=== PATIENT | female | born 1935 | race Caucasian/White ===

== ENCOUNTER 2022-09-24 00:52 | Day surgery (SDC) | payer OTHER, SELFPAY ==
[2022-09-06 14:09] VITALS: BMI 23.8
--- NOTE | 2022-09-06 14:43 | PC.NURSE ---
Report to the Outpatient Waiting Room, entrance under the green pavilion located off [facility], at time __10:45AM on date __09/13/22 . Planned Procedure Time: ___12:45PM . Time changes happen often and if your time is changed the preop area will call you the afternoon before. - You and your visitor will be asked to self-screen and do not enter if you have any COVID symptoms. - Only one visitor is requested with a max of two and NO children visitors are allowed at this time. - The patient visitor may be requested to leave or wait in car when not with patient due to distancing restrictions. - A mask is optional within the hospital. Patients may have clear liquids (water, carbonated beverages, clear teas, apple juice) until 3 hours prior to surgery with a maximum of 20 ounces. - No food from midnight until time of surgery Take the following medications with a SIP of water the morning of surgery: ____GABAPENTIN, CARVEDILOL, TRAMADOL NEEDED Medications to discontinue per physician ___HOLD ELIQUIS 2 DAYS PRE-OP(PER PT/ZUNIGA)- LAST DOSE 10/11/22, HOLD ALL VITAMINS/SUPPLEMENTS 3 DAYS PRE-OP- 10/10/22 Please no make-up, nail uzbek, hairspray, perfume, deodorant, or body powder the day of surgery. No jewelry (including any body piercings) or valuables the day of surgery, leave them at home. Please take a shower or bath the night before, or the morning of, surgery with an antibacterial soap. Wear comfortable, loose fitting clothing. Children are encouraged to wear pajamas. - Jewelry must be removed prior to entering the operating room. Rings and piercings that are not removed may be cut off. - The hospital will not accept responsibility for valuables. - Please leave all valuables, including medications, at home the day of surgery. If you are going home after surgery, a licensed ice delivery driver must drive you home. - NO public transportation without another adult if you receive anesthesia. - We recommend that an adult stay with you for 24 hours following discharge. - We also recommend that you do not drive, make important decision, drink alcoholic beverages, or take any drugs that were not prescribed by your health care provider for at least 24 hours after your discharge time. Follow any additional instructions given to you from your surgeon. If you or anyone in your household have experienced Covid symptoms in the past week, please notify your surgeon or the nurse liaison at the phone number below for possible testing. Telephone instructions given to ___PATIENT and asked if any additional questions and then verbalized understanding. Patient advised to call surgeon office or pre surgery nurse liaison [phone] if any additional questions.
--- NOTE | 2022-09-12 12:54 | PM.IMHP ---
H&P: HPI History of Present Illness Date/Time: 09/12/22 12:54 Chief Complaint: Bladder lesion Narrative: This is a with recurrent urinary tract infections and an abnormal cystoscopy. It is difficult to tell if this cystoscopic abnormality is neoplasm versus sequela infection. She presents for bladder biopsy Review of Systems Review of Systems: All systems reviewed & are unremarkable except as noted in HPI and below PMFSH Social History Social History Smoking status: Never smoker Substance use: never Living arrangements: alone Spiritual care concerns: No Meds Home Medications and Allergies Home Medications Medication Instructions Recorded Confirmed Type apixaban 5 mg tablet (Eliquis) 5 mg PO BID 09/06/22 09/06/22 History carvedilol 12.5 mg tablet 12.5 mg PO QAM 09/06/22 09/06/22 History gabapentin 300 mg tablet 900 mg PO BID 09/06/22 09/06/22 History geriatric multivitamin-min 1 tablet PO DAILY 09/06/22 09/06/22 History lisinopril 5 mg tablet 5 mg PO QAM 09/06/22 09/06/22 History lovastatin 40 mg tablet 40 mg PO HS 09/06/22 09/06/22 History nitrofurantoin 100 mg PO HS 09/06/22 09/06/22 History monohydrate/macrocrystals 100 mg capsule sertraline 50 mg tablet 50 mg PO HS 09/06/22 09/06/22 History tramadol 50 mg tablet 50 mg PO Q12-24H PRN Pain 09/06/22 09/06/22 History vit C,L-Vf-xdtbrg-lutein-zeaxan 60 1 cap PO HS 09/06/22 09/06/22 History mg-13.5 mg-15 mg-2 mg-6 mg capsule (Ocuvite Lutein and Zeaxanthin) Allergies Allergy/AdvReac Type Severity Reaction Status Date / Time No Known Allergies Allergy Verified 09/06/22 14:02 Exam Narrative: No acute distress Normal breathing Pelvic exam deferred for OR No significant abnormalities on office exam Assessment and Plan Assessment and plan (1) Lesion of bladder: Code(s): N32.9 - Bladder disorder, unspecified Status: Acute Assessment and Plan: Cystoscopy with bladder biopsy. Risks of bleeding, infection, damage to the urinary tract discussed. Agrees to proceed
--- NOTE | 2022-09-13 07:12 | WPDHPUPDATE1 ---
History and Physical Update Update Date/Time: 09/13/22 07:12 History and Physical has been reviewed, including an updated exam of the patient. There are NO changes in the patient's condition. Risks, benefits, and alternatives have been discussed and questions answered. Patient agrees to proceed with procedure.
--- NOTE | 2022-09-15 12:42 | PC.NURSE ---
PATIENT CALLED FOR RESCHEDULED SURGERY AT 09/24/22 @ 11:30. ALL PRE-OP INSTRUCTIONS REVIEWED, PT RELAYS UNDERSTANDING. Report to the Outpatient Waiting Room, entrance under the green pavilion located off [address], at time __9:30AM on date __09/24/22 . Planned Procedure Time: __11:30AM . Time changes happen often and if your time is changed the preop area will call you the afternoon before. - You and your visitor will be asked to self-screen and do not enter if you have any COVID symptoms. - Only one visitor is requested with a max of two and NO children visitors are allowed at this time. - The patient visitor may be requested to leave or wait in car when not with patient due to distancing restrictions. - A mask is optional within the hospital at this time. Patients may have clear liquids (water, carbonated beverages, clear teas, apple juice) until 3 hours prior to surgery with a maximum of 20 ounces. - No food from midnight until time of surgery Take the following medications with a SIP of water the morning of surgery: ___GABAPENTIN, CARVEDILOL, TRAMADOL NEEDED DO NOT STOP ANY OF YOUR OTHER PRESCRIPTION MEDICATIONS PRIOR TO SURGERY ?EXCEPT THE FOLLOWING Medications to discontinue per physician ____HOLD ELIQUIS 2 DAYS PRE-OP- LAST DOSE 09/21/22, HOLD ALL VITAMINS/SUPPLEMENTS 3 DAYS PRE-OP- LAST DOSE 09/22/22 Please no make-up, nail yi, hairspray, perfume, deodorant, or body powder the day of surgery. No jewelry (including any body piercings) or valuables the day of surgery, leave them at home. Please take a shower or bath the night before, or the morning of, surgery with an antibacterial soap. Wear comfortable, loose fitting clothing. Children are encouraged to wear pajamas. - Jewelry must be removed prior to entering the operating room. Rings and piercings that are not removed may be cut off. - The hospital will not accept responsibility for valuables. - Please leave all valuables, including medications, at home the day of surgery. If you are going home after surgery, a licensed route sales driver must drive you home. - NO public transportation without another adult if you receive anesthesia. - We recommend that an adult stay with you for 24 hours following discharge. - We also recommend that you do not drive, make important decision, drink alcoholic beverages, or take any drugs that were not prescribed by your health care provider for at least 24 hours after your discharge time. Follow any additional instructions given to you from your surgeon. If you or anyone in your household have experienced Covid symptoms in the past week, please notify your surgeon or the nurse liaison at the phone number below for possible testing. Telephone instructions given to __PATIENT and asked if any additional questions and then verbalized understanding. Patient advised to call surgeon office or pre surgery nurse liaison [phone] if any additional questions.
--- NOTE | 2022-09-23 10:27 | PM.IMHP ---
H&P: HPI History of Present Illness Date/Time: 09/23/22 10:27 Chief Complaint: bladder lesion Narrative: bladder abnormality noted on cystoscopy. history of recurrent infections. Review of Systems Review of Systems: All systems reviewed & are unremarkable except as noted in HPI and below PMFSH Social History Social History Smoking status: Never smoker Substance use: never Living arrangements: alone Spiritual care concerns: No Meds Home Medications and Allergies Home Medications Medication Instructions Recorded Confirmed Type apixaban 5 mg tablet (Eliquis) 5 mg PO BID 09/06/22 09/15/22 History carvedilol 12.5 mg tablet 12.5 mg PO QAM 09/06/22 09/15/22 History gabapentin 300 mg tablet 900 mg PO BID 09/06/22 09/15/22 History geriatric multivitamin-min 1 tablet PO DAILY 09/06/22 09/15/22 History lisinopril 5 mg tablet 5 mg PO QAM 09/06/22 09/15/22 History lovastatin 40 mg tablet 40 mg PO HS 09/06/22 09/15/22 History nitrofurantoin 100 mg PO HS 09/06/22 09/15/22 History monohydrate/macrocrystals 100 mg capsule sertraline 50 mg tablet 50 mg PO HS 09/06/22 09/15/22 History tramadol 50 mg tablet 50 mg PO Q12-24H PRN Pain 09/06/22 09/15/22 History vit C,I-Hg-jcmokf-lutein-zeaxan 60 1 cap PO HS 09/06/22 09/15/22 History mg-13.5 mg-15 mg-2 mg-6 mg capsule (Ocuvite Lutein and Zeaxanthin) Allergies Allergy/AdvReac Type Severity Reaction Status Date / Time No Known Allergies Allergy Verified 09/15/22 12:35 Exam Narrative: Elderly no acute distress normal breathing Assessment and Plan Assessment and plan (1) Lesion of bladder: Code(s): N32.9 - Bladder disorder, unspecified Status: Acute Assessment and Plan: cystoscopy and bladder biopsy. Understands risks of bleeding, infection, damage to the urinary tract. Agrees to proceed
--- NOTE | 2022-09-24 07:13 | WPDHPUPDATE1 ---
History and Physical Update Update Date/Time: 09/24/22 07:13 History and Physical has been reviewed, including an updated exam of the patient. There are NO changes in the patient's condition. Risks, benefits, and alternatives have been discussed and questions answered. Patient agrees to proceed with procedure.
[2022-09-24 10:28] LABS: Appearance Urine Slightly Cloudy (Clear); Bilirubin Urine 1+ (Negative); Blood Urine Trace-lysed (Negative); Color Urine Yellow (Yellow); Glucose Urine UA Negative (Negative); Ketones Urine Negative (Negative); Leukocyte Esterase Ur 1+ LEU/UL (Negative); Nitrate Urine Negative (Negative); Protein Urine 1+ mg/dL (Negative); Urobilinogen Urine 0.2 mg/dL (<2.0)
[2022-09-24 10:35] LABS: Bacteria Urine 4+ /hpf; Squamous Epithelial Cell Urine Many /hpf (Few); WBC Urine 21-30 /hpf
[2022-09-24 10:37] LABS: Add Urine Microscopic? YES
[2022-09-24 10:56] VITALS: BP 130/72; PULSE 63; RESP 14; TEMP 36.6; O2SAT 93
--- NOTE | 2022-09-24 10:58 | WPDANESEPPF ---
Anes - Initial Pre Proc Eval Procedure: Operation Date: 09/24/22 11:30 Proposed Procedures p Cystoscopy, Bladder Biopsy - Alfred Evans MD Date/Time: 09/24/22 10:58 Surgeon: Alfred Evans MD Pre Op Diagnosis: chronic cystitis Patient Data Age: 87 Gender: F Height: 1.45 m Weight: 50 kg Allergies Allergy/AdvReac Type Severity Reaction Status Date / Time No Known Allergies Allergy Verified 09/15/22 12:35 Home Medications Medication Instructions Recorded Confirmed Type apixaban 5 mg tablet (Eliquis) 5 mg PO BID 09/06/22 09/24/22 History carvedilol 12.5 mg tablet 12.5 mg PO QAM 09/06/22 09/24/22 History gabapentin 300 mg tablet 900 mg PO BID 09/06/22 09/24/22 History geriatric multivitamin-min 1 tablet PO DAILY 09/06/22 09/15/22 History lisinopril 5 mg tablet 5 mg PO QAM 09/06/22 09/15/22 History lovastatin 40 mg tablet 40 mg PO HS 09/06/22 09/15/22 History nitrofurantoin 100 mg PO HS 09/06/22 09/15/22 History monohydrate/macrocrystals 100 mg capsule sertraline 50 mg tablet 50 mg PO HS 09/06/22 09/15/22 History tramadol 50 mg tablet 50 mg PO Q12-24H PRN Pain 09/06/22 09/24/22 History vit C,U-Lc-xffylc-lutein-zeaxan 60 1 cap PO HS 09/06/22 09/15/22 History mg-13.5 mg-15 mg-2 mg-6 mg capsule (Ocuvite Lutein and Zeaxanthin) Laboratory Tests 09/24/22 10:17 Urine Color Yellow (Yellow) Urine Appearance Slightly cloudy (Clear) Urine pH 6.0 (5.0-9.0) Ur Specific [place] 1.020 (1.001-1.035) Urine Protein 1+ mg/dL H mg/dL (Negative) Urine Glucose (UA) Negative mg/dL mg/dL (Negative) Urine Ketones Negative mg/dL mg/dL (Negative) Ur Blood (Man) Trace-lysed (Negative) Urine Nitrate Negative (Negative) Urine Bilirubin 1+ H (Negative) Urine Urobilinogen 0.2 mg/dL mg/dL (<2.0) Leukocyte Esterase Rfl 1+ RENETTA/UL H RENETTA/UL (Negative) Urine RBC 6-10 /hpf H /hpf (0-2) Urine WBC 21-30 /hpf H /hpf Ur Squamous Epith Cells Many /hpf H /hpf (Few) Urine Bacteria 4+ /hpf H /hpf Patient hx anesthesia problems: none Family hx anesthesia problems: none Results Review: All pre-operative results and documents have been reviewed as part of the pre-operative evaluation. [facility] Past Medical History Medical History (Updated 09/24/22 @ 11:00 by Ishan Ding MD) Breast cancer CAD (coronary artery disease) Chronic a-fib Social History Social History Smoking status: Never smoker Substance use: never Living arrangements: alone Spiritual care concerns: No Anes - Eval Final PreProcedure Day of Procedure 09/24/22 10:58 Patient weight: normal Heart: regular rate and rhythm Lungs: clear to auscultation Airway: Mallampati scale class II Neurological: alert and oriented Last oral intake: >/= 8 hours ASA classification: III Emergent: no Anesthetic plan: proceed Anesthesia type and monitoring: general GIVS and standard monitoring Results Review: All pre-operative results and documents have been reviewed as part of the pre-operative evaluation. Informed Consent: The patient's anesthetic plan and its attendant risks and benefits were discussed with the patient/family/POA. Questions were solicited and answers provided to the satisfaction of the patient/family/POA.
[2022-09-24] MEDS: LACTATED RINGERS 1,000 ML 30 ML IV CONT (11:01)
[2022-09-24] MEDS: ceFAZolin 2 GM/D5W 50 ML 2 GM/50 ML BAG IVPB (11:45)
[2022-09-24] MEDS: LIDOCAINE HCL 2% GEL UROJET 10 ML PKG MUCOUS MEM (11:57)
--- NOTE | 2022-09-24 12:08 | W.PM.PROC2 ---
Procedure Note - Detailed Date of Procedure 09/24/22 Pre-op Diagnosis chronic cystitis lesion of the bladder Post-op Diagnosis Same Procedure Performed cystoscopy with bladder biopsy Surgeon Alfred Evans MD Anesthesia MAC and Local Indications this is a woman with long-term chronic urinary tract infections. She had an abnormal cystoscopy. She has been maintained on low-dose. She is here for cystoscopy with bladder biopsy. She understands risks of bleeding, infection, damage to the urinary tract. 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 Informed consent obtained. From the operating room. She was given MAC anesthesia. She was placed in dorsal lithotomy position. She was prepped and draped sterile fashion. Time-out performed. I performed cystoscopy. She had a very abnormal bladder. She had multiple areas almost covering the bladder of squamous type cells. 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 There is no papillary tumors. Was not able to identify the ureteral orifices. There was no stones. Again this abnormal tissue encompassed probably 75% of the bladder. moderate trabeculations were noted. I chose several areas in the bladder which I took biopsy samples and sent for pathologic analysis. There was minimal bleeding from the biopsy sites. I did fulgurate the biopsy sites. These areas are not resectable as the encompass too much of the bladder. I examined the bladder and low insufflation pressures. There was no active bleeding. She was awakened transferred to PACU in stable Estimated Blood Loss 1 Pathology Yes Complications No immediate complications Condition Stable Disposition PACU
[2022-09-24 12:13] VITALS: BP 105/60; PULSE 86; RESP 14; O2SAT 97
[2022-09-24 12:51] VITALS: BP 133/76; PULSE 88; RESP 20
[2022-09-24 13:22] VITALS: BP 132/85; PULSE 77; RESP 17
== END 2022-09-24 13:39 | disposition home or self-care (01) ==
PROVIDERS: PCP Internal Medicine; Visit Provider Urology
PROC: 0TBB8ZX Excision of Bladder, Via Natural or Artificial Opening Endoscopic, Diagnostic (ICD-10-PCS; CPT 52204; principal; 2022-09-24 11:30)
DX: N32.89 Other specified disorders of bladder (principal); Z79.01 Long term (current) use of anticoagulants; Z79.899 Other long term (current) drug therapy; I25.10 Atherosclerotic heart disease of native coronary artery without angina pectoris; I48.20 Chronic atrial fibrillation, unspecified; Z85.3 Personal history of malignant neoplasm of breast
CPT/HCPCS: 52204; 81001; 87086; 87088; 88305; J0690; J2704; J7120

== ENCOUNTER 2024-10-16 19:12 | Observation (INO) | payer OTHER, SELFPAY ==
--- NOTE | ~2024-10-16 | CT_ITS ---
Clinical Indication: Hypoxia CT Scan of the Chest with Contrast: Technique: Contiguous sections were acquired throughout the chest after intravenous administration of 75 cc of Omnipaque 350. Dose reduction technique was used on this scan by utilizing automated exposu re control and iterative reconstruction technique. The dose-length product (DLP) was 185.11 mGy-cm. Findings: There is no evidence of any significant mediastinal, hilar or axillary lymphadenopathy. There is no f illing defect in the pulmonary arterial tree to suggest pulmonary embolus. There is no evidence of ao rtic dissection or aneurysm. There is no evidence of pleural or pericardial effusion. The lungs are clear. No pulmonary nodules or infiltrates are noted. Images through the upper abdomen reveal no abnormalities. There is marked resorption of the bilateral humeral heads with extensive remodeling particularly the right glenoid/distal scapula. Impression: No evidence of pulmonary embolus, aortic dissection, or aortic aneurysm. Clear lungs. 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 Reviewed, dictated and finalized at [facility]. TED RADIOLOGY TECHNICIAN Impression: No evidence of pulmonary embolus, aortic dissection, or aortic aneurysm. Clear lungs. Extensive abnormality of the bilateral humeral head/glenohumeral joints, possib ly due to atrophic type neuropathic joints.
--- NOTE | ~2024-10-16 | XR_ITS ---
CHEST RADIOGRAPH CLINICAL HISTORY: exertional dyspnea, cough, n/v . COMPARISON: None available TECHNIQUE: Single portable view of the chest. FINDINGS The right mid lung is partially obscured due to pacemaker generator. Wires project over the right atrium and right ventricle. Densely calcified mitral annulus. The cardiomediastinal silhouette is enlarged, and partially obscured. Elevation of the right hemidiaphragm with adjacent compressive atelectasis. The remainder of the bilateral lung fernandez are clear. Bilateral chronic shoulder deformity. IMPRESSION: Elevation of the right hemidiaphragm with adjacent compressive atelectasis. No focal infiltrate or effusion. Reviewed, dictated and finalized at location A. N TENDER
--- OUTSIDE RECORDS SUMMARY | 2024-10-16 19:15 | XMS_ITS | CONTINUITY OF CARE DOCUMENT ---
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 Cardiology examination active Phyllis raymundo MD ENCOUNTERS Date Type Provider Location Encounter Diag nosis - In-person encounter Office Visit Quoc Quintana MD [facility] - In-person encounter Office Visit Phyllis López MD [facility] - In-person encounter Office Visit Phyllis López MD [facility] Cardiology examination - In-person encounter Office Visit Quoc Quintana MD [facility] 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 Office Visit Quoc Quintana MD [facility] - In-person encounter Office Visit Quoc Quintana MD [facility] Cardiac murmur - In-person encounter Office Visit Quoc Quintana MD [facility] - In-person encounter Office Visit Quoc Quintana MD [facility] - In-person encounter Office Visit Quoc Quintana MD [facility] - In-person encounter Office Visit Quoc Quintana MD [facility] - In-person encounter Office Visit Quoc Quintana MD [facility] - In-person encounter Office Visit Quoc Quintana MD [facility] - In-person encounter Office Visit Quoc Quintana MD [facility] - In-person encounter Office Visit Quoc Quintana MD [facility] - In-person encounter Office Visit Quoc Quintana MD [facility] - In-person encounter Office Visit Quoc Quintana MD [facility] Hypothyroidism - In-person encounter Office Visit Quoc Quintana MD [facility] Nerve pain-Sciatica - In-person encounter Office Visit Quoc Quintana MD [facility] - In-person encounter Office Visit Quoc Quintana MD [facility] Other symptoms involving cardiovascular systemAtrial fib paroxysmalShortness of breathAMI subendocardialAMI inferior wallStent ? Drug ElutingHTN essentialDeconditioningCHF - diastolicCHF - systolicLeg painCAD VITAL SIGNS Date Observation Value Provider blood pressure, cuff size regular Ke [facility]isa [facility], diastolic 70 mm[Hg] Tom [facility] blood pressure, systolic 110 mm[Hg] Abhijeet Lombardo oxygen saturation, oximetry 90 % Ruth Richmond pulse rate 65 /min Ruth Brenda [facility] height E&M 60 [in_i] Ruth Brenda [facility] Body Mass Index (Ratio) 20.70 kg/m2 Leno Hicks blood pressure, diastolic 80 mm[Hg] Yari surjit Homero blood pressure, systolic 122 mm[Hg] Yarilisa miltonmariam Valentin oxygen saturation, oximetry 92 % Hoa Valentin pulse rate 93 /min Hoa Valentin respiratory rate E&M 12 /min Hoamariam Valentin weight E&M 106 [lb_av] Hoamariam Valentin height E&M 60 [in_i] Hoamariam Valentin blood pressure, cuff size regular An lisamiltonmariam Valentin Body Mass Index (Ratio) 31.24 kg/m2 Leno Hicks blood pressure, diastolic 73 mm[Hg] Yari eddy Valentin blood pressure, systolic 98 mm[Hg] Judie batres Valentin oxygen saturation, oximetry 91 % Hoa Valentin pulse rate 83 /min Hoa Valentin weight E&M 160 [lb_av] Hoa [place] respiratory rate E&M 12 /min Hoa [place] height E&M 60 [in_i] Hoa [place] blood pressure, cuff size regular An surjit Valentin blood pressure, diastolic 80 mm[Hg] Li nkLog blood pressure, systolic 100 mm[Hg] Taylor kLog blood pressure, cuff size regular Ke rri Gruenenfelder blood pressure, diastolic 80 mm[Hg] Ke rri Gruenenfelder blood pressure, systolic 100 mm[Hg] Abhijeet ri Gildardouenenfelder oxygen saturation, oximetry 92 % Ruth Gildardouenenfelder pulse rate 34 /min Ruth Gildardouenenfe lder height E&M 60 [in_i] Ruth Gruenenfe lder blood pressure, diastolic 75 mm[Hg] Yari milton Houser blood pressure, systolic 126 mm[Hg] Lucila Houser oxygen saturation, oximetry 94 % Anny Houser pulse rate 71 /min Anny Houser height E&M 60 [in_i] Anny Houser blood pressure, cuff size large Yari milton Houser Body Mass Index (Ratio) 22.26 kg/m2 Angi Quintana MD blood pressure, diastolic 80 mm[Hg] Yari milton Houser blood pressure, systolic 138 mm[Hg] Lucila Houser pulse rate 70 /min Anny Houser oxygen saturation, oximetry 92 % Annyciarra Houser weight E&M 114 [lb_av] Annyciarra Houser height E&M 60 [in_i] Annyciarra Houser blood pressure, cuff size large An ya Mik blood pressure, diastolic 80 mm[Hg] Sa miroslava Quintana MD blood pressure, systolic 140 mm[Hg] Mamadou Quintana MD Body Mass Index (Ratio) 21.68 kg/m2 Angi Quintana MD blood pressure, cuff size regular Ke rri [facility] blood pressure, diastolic 77 mm[Hg] Ke rri [facility] blood pressure, systolic 123 mm[Hg] Abhijeet Lombardo oxygen saturation, oximetry 93 % Ruth Lombardo respiratory rate E&M 14 /min Ruth G [facility] pulse rate 65 /min Ruth Brenda [facility] weight E&M 111 [lb_av] Ruth Ceciliae [facility] height E&M 60 [in_i] Ruth Jacquelinenenfe [facility] Body Mass Index (Ratio) 22.65 kg/m2 Angi Quintana MD blood pressure, diastolic 79 mm[Hg] Sa ra Christensen blood pressure, systolic 118 mm[Hg] Rin a Christensen oxygen saturation, oximetry 95 % Rosa M Christensen respiratory rate E&M 16 /min Rosa M Si ms pulse rate 89 /min Rosa M Christensen blood pressure, cuff size small Sa ra Christensen weight E&M 116 [lb_av] Rosa M Christensen height E&M 60 [in_i] Rosa M Christensen Body Mass Index (Ratio) 22.85 kg/m2 Angi Quintana MD blood pressure, diastolic 82 mm[Hg] Li nkLogic blood pressure, systolic 142 mm[Hg] Taylor kLogic blood pressure, cuff size small Ke rri Gruenenfelder blood pressure, diastolic 82 mm[Hg] Ke rri Gruenenfelder blood pressure, systolic 142 mm[Hg] Ker ri Gruenenfelder oxygen saturation, oximetry 95 % Ruth Gruenenfelder respiratory rate E&M 16 /min Ruth G ruenenfelder pulse rate 76 /min Ruth Gruenenfe lder weight E&M 117 [lb_av] Ruth Gruenenfe lder height E&M 60 [in_i] Ruth Gruenenfe lder Body Mass Index (Ratio) 23.04 kg/m2 Angi Quintana MD blood pressure, cuff size regular Ke rri Gruenenfelder blood pressure, diastolic 70 mm[Hg] Ke rri Gruenenfelder blood pressure, systolic 120 mm[Hg] Ker ri Gruenenfelder oxygen saturation, oximetry 95 % Ruth Gruenenfelder respiratory rate E&M 16 /min Ruth G ruenenfelder pulse rate 79 /min Ruth Gruenenfe lder weight E&M 118 [lb_av] Ruth Gruenenfe lder height E&M 60 [in_i] Ruth Gruenenfe er Body Mass Index (Ratio) 23.04 kg/m2 Aftab Kang blood pressure, cuff size regular Cy bekah Cadena blood pressure, diastolic 89 mm[Hg] Cy bekah Cadena blood pressure, systolic 137 mm[Hg] Sharmin Cadena oxygen saturation, oximetry 92 % Heidi Cadena respiratory rate E&M 16 /min Heidi Cadena pulse rate 69 /min Heidi ibarra weight E&M 118 [lb_av] Heidi ibarra height E&M 60 [in_i] Heidi ibarra Body Mass Index (Ratio) 23.24 kg/m2 Aftab swapnil Pearl blood pressure, cuff size regular Cy bekah Cadena blood pressure, diastolic 64 mm[Hg] Cy bekah Cadena blood pressure, systolic 116 mm[Hg] Sharmin Cadena oxygen saturation, oximetry 93 % Heidi Cadena respiratory rate E&M 16 /min Heidi Cadena pulse rate 83 /min Heidi ibarra weight E&M 119 [lb_av] Heidi ibarra height E&M 60 [in_i] Heidi ibarra Body Mass Index (Ratio) 24.68 kg/m2 [place] blood pressure, diastolic 76 mm[Hg] Julianna Dumont blood pressure, systolic 118 mm[Hg] Bhargavi Dumont oxygen saturation, oximetry 91 % Adriana Dumont respiratory rate E&M 18 /min Margie Dumont pulse rate 73 /min Adriana joshi weight E&M 126.4 [lb_av] Adriana berry height E&M 60 [in_i] Adriana joshi Body Mass Index (Ratio) 24.61 kg/m2 Angi Quintana MD blood pressure, diastolic 59 mm[Hg] Julianna Dumont blood pressure, systolic 111 mm[Hg] Bhargavi Dumont oxygen saturation, oximetry 94 % Adriana Dumont respiratory rate E&M 18 /min Margie Dumont pulse rate 69 /min Adriana joshi weight E&M 126 [lb_av] Adriana joshi height E&M 60 [in_i] Adriana Sanhces [facility] Body Mass Index (Ratio) 25.00 kg/m2 [place] pulse rate 66 /min [facility] oxygen saturation, oximetry 94 % Manuel [facility] blood pressure, diastolic 70 mm[Hg] Ronny cotter [facility] centered[facility] blood pressure, systolic 110 mm[Hg] Elaine navarro [facility] respiratory rate E&M 16 /min [facility] weight E&M 128 [lb_av] [facility] height E&M 60 [in_i] [facility] Body Mass Index (Ratio) 25.23 kg/m2 Mckinleysaturnino elbert Swann blood pressure, diastolic 74 mm[Hg] Julianna Heller Dumont blood pressure, systolic 147 mm[Hg] Bhargavi Carranza Dumont oxygen saturation, oximetry 94 % Adriana Dumont respiratory rate E&M 18 /min Margie Dumont pulse rate 75 /min Adriana joshi weight E&M 129.2 [lb_av] Adriana berry height E&M 60 [in_i] Adriana joshi Body Mass Index (Ratio) 21.29 kg/m2 Angi Quintana MD blood pressure, diastolic 71 mm[Hg] Julianna Dumont blood pressure, systolic 132 mm[Hg] Bhargavi Dumont oxygen saturation, oximetry 94 % Adriana Ruizenson respiratory rate E&M 18 /min Margie Dumont pulse rate 71 /min Adriana joshi weight E&M 109 [lb_av] Adriana joshi height E&M 60 [in_i] Adriana joshi weight E&M 104 [lb_av] Lexy Wolff height E&M 60 [in_i] Lexy Wolff Body Mass Index (Ratio) 20.27 kg/m2 Angi Quintana MD blood pressure, resting Yes Milagro Dumont blood pressure, diastolic 70 mm[Hg] Julianna Dumont blood pressure, systolic 117 mm[Hg] Bhargavi Dumont oxygen saturation, oximetry 92 % Adriana Dumont respiratory rate E&M 18 /min Margie Dumont pulse rate 65 /min Adriana joshi weight E&M 103.8 [lb_av] Adriana berry height E&M 60 [in_i] Adriana joshi ALLERGIES No Known Drug Allergies HISTORY OF MEDICATION USE Medication Status Instructions Dates Provider Indications Com ments omeprazole 20 mg capsule,delayed release(DR/EC) active TAKE 1 CAPSULE BY MOUTH ONCE DAILY Lucretia Ventimiglia MACROECONOMICS PROFESSOR Ocuvite with Lutein 1,000 unit-200 mg-60 unit-2 mg tablet active Take 1 once a day Ruth Lombardo BENADRYL ALLERGY TABLET active once a day Ruth Lombardo PLAVIX 75 MG ORAL TABLET completed take 1 tab dialy - Ruth Lombardo melatonin 3 mg tablet active 1 tablet once a day Adriana Ruizenson TYLENOL CAPSULE active 2 tablet every twelve hours as needed Adriana Ruizenson FE TABS 325 (65 Fe) MG TBEC completed Take 1 once a week - Ruth Lombardo pantoprazole 40 mg tablet,delayed release (DR/EC) completed once a day - Lucretia CORBETT furosemide 20 mg tablet active once a day Adriana Dumont Vitamin D3 50 mcg (2,000 unit) tablet active Take 1 tablet once a day Ruth Lombardo FISH OIL 1000 MG ORAL CAPSULE completed take 1 capsule once daily - Adriana Dumont levothyroxine 50 mcg tablet active Take 1 tablet once a day Heidi Cadena REMERON 30 MG ORAL TABLET completed once daily - Adriana Dumont MULTIVITAMINS CAPS active 1 tablet once a day Adriana Dumont gabapentin 300 mg capsule active 3 twice a day Ruth Lombardo anastrozole 1 mg tablet completed once a day - Lucretia Chicas MACROECONOMICS PROFESSOR #30, 30 days supply, Prescribed by SONIA DUKE, Filled 11/23/2016 sertraline 50 mg tablet active once a day Quoc Quintana MD TRAZODONE HCL 100 MG ORAL TABLET completed 1 tab every day after meals - Adriana Dumont Eliquis 2.5 mg tablet active twice a day Quoc Quintana MD tramadol 50 mg tablet active 1 tablet every eight hours as needed Quoc Quintana MD lisinopril 5 mg tablet active 1 tablet once a day Adriana Dumont #90, 90 days supply, Prescribed by ANDREIA GARAY, Filled 01/07/2017 carvedilol 12.5 mg tablet active twice a day Adriana Dumont #60, 30 days supply, Prescribed by ANDREIA GARAY, Filled 01/07/2017 lovastatin 40 mg tablet active once a day Quoc Quintana MD AMPICILLIN 500 MG ORAL CAPSULE completed 1 tab every 6 hours - Adriana Dumont #30, 7 days supply, Prescribed by DANDY HOFF, Filled 01/20/2017 buspirone 10 mg tablet active once a day as needed Ruth Lombardo CLOPIDOGREL BISULFATE 75 MG ORAL TABLET completed once daily - Quoc Quintana MD SOCIAL HISTORY Date Observation Value Provider personal history of marijuana use no Quoc Quintana MD drug use no Quoc lafleur MD alcohol use no Quoc lafleur MD smoking status Never smoker Quoc marie MD personal history of marijuana use no Phyllis López MD drug use no Phyllis López MD alcohol use no Phyllis López MD smoking status Never smoker Phyllis raymundo MD personal history of marijuana use no Lucretia Ventimiglia [facility] drug use no Lucretia Ventimig hayde [facility] alcohol use no Lucretia Ventimig hayde [facility] smoking status Never smoker Lucretia Ventim iglia [facility] smoking status Never smoker Anny Houser social history E&M S moking History: Dale stinson has never smoked. Quoc Quintana MD social history reviewed E&M revi ewed - no changes required Quoc Quintana MD smoking status Never smoker Anny Houser social history E&M S moking History: Dale stinson has never smoked. Quoc Quintana MD social history reviewed E&M revi ewed - no changes required Quoc Quintana MD smoking status Never smoker Ruth Vernon summers social history reviewed E&M revi ewed - no changes required Quoc Quintana MD social history E&M S moking History: Dale stinson has never smoked. Quoc Quintana MD social history reviewed E&M revi ewed - no changes required Quoc Quintana MD smoking status Never smoker Ruth Vernon summers social history E&M S moking History: Dale stinson has never smoked. Quoc Quintana MD social history reviewed E&M revi ewed - no changes required Quoc Quintana MD smoking status Never smoker Ruth summers social history E&M S moking History: Dale stinson has never smoked. Quoc Quintana MD social history reviewed E&M revi ewed - no changes required Quoc Quintana MD smoking status Never smoker Heidi Norma snyder social history reviewed E&M revi ewed - no changes required Quoc Quintana MD social history E&M S moking History: Dale stinson has never smoked. Quoc Quintana MD smoking status Never smoker Heidi Norma snyder social history E&M S moking History: Dale stinson has never smoked. Quoc Quintana MD social history reviewed E&M revi ewed - no changes required Quoc Quintana MD smoking status Never smoker Adriana Kelly ludwin social history E&M S moking History: Dale stinson has never smoked. Quoc Quintana MD social history reviewed E&M revi ewed - no changes required Quoc Quintana MD smoking status Never smoker Adriana Kelly ludwin social history reviewed E&M revi ewed - no changes required Quoc Quintana MD social history reviewed E&M revi ewed - no changes required Quoc Quintana MD social history E&M S moking History: Dale stinson has never smoked. Quoc Quintana MD smoking status Never smoker Adriana Aranashakila social history E&M S moking History: Dale stinson has never smoked. Quoc Quintana MD social history reviewed E&M revi ewed - no changes required Quoc Quintana MD smoking status Never smoker Adriana Arnaashakila number of grandchildren Quoc Quitnana MD social history reviewed E&M revi ewed - no changes required Quoc Quintana MD social history E&M S moking History: Dale stinson has never smoked. Quoc Quintana MD smoking status Never smoker Adriana Robin mascorro FUNCTIONAL STATUS Date Observation Value Provider HRA, CV Assess/Plan, Angina (inactive) Management Plan continue current therapy Quoc Quintana MD HRA, CV Assess/Plan, Angina (inactive) Management Plan continue current therapy Phyllis López MD HRA, CV Assess/Plan, Angina (inactive) Management Plan continue current therapy Lucretia CORBETT HRA, CV Assess/Plan, Angina (inactive) Management Plan continue current therapy Quoc Quintana MD HRA, CV Assess/Plan, Angina (inactive) Management Plan continue current therapy Quoc Quintana MD HRA, CV Assess/Plan, Angina (inactive) Management Plan continue current therapy Quoc Quintana MD HRA, CV Assess/Plan, Angina (inactive) Management Plan continue current therapy Quoc Quintana MD HRA, CV Assess/Plan, Angina (inactive) Management Plan continue current therapy Quoc Quintana MD HRA, CV Assess/Plan, Angina (inactive) Management Plan continue current therapy Quoc Quintana MD HRA, CV Assess/Plan, Angina (inactive) Management Plan continue current therapy Quoc Quintana MD HRA, CV Assess/Plan, Angina (inactive) Management Plan continue current therapy Quoc Quintana MD HRA, CV Assess/Plan, Angina (inactive) Management Plan continue current therapy Quoc Quintana MD HRA, CV Assess/Plan, Angina (inactive) Management Plan continue current therapy [place] HRA, CV Assess/Plan, Angina (inactive) Management Plan continue current therapy Quoc Quintana MD HRA, CV Assess/Plan, Angina (inactive) Management Plan continue current therapy Quoc Quintana MD HRA, CV Assess/Plan, Angina (inactive) Management Plan continue current therapy Quoc Quintana MD FAMILY HISTORY Family Member Condition First Degree Blood Relative No Known Fam luciana History INSURANCE PROVIDERS Payer name Policy type / Coverage type Monty red democrat ID DARRICK HMO Other [id number] ADVANCE DIRECTIVES Name Date DISCUSSED - NO DECISION MADE TREATMENT PLAN Date Name Performer [id number],C, A SA/Plavix 12 months. replaced iwth eliquis and plavix April 25, 2020 N ow off of Plavix remains on Eliquis alone. had MARY RCA 3.0/15 xience 2016 LVF 60% on 02/28 echo. October 28, 2021 R ecent echo showed mornal EF with MAC June 01, 2023 c heck echo Quoc Quintana MD [id number],C, D ES to RCA ostium Quoc Quintana MD [id number],C, A SA/Plavix 12 months. replaced iwth eliquis and plavix April 25, 2020 N ow off of Plavix remains on Eliquis alone. had MARY RCA 3.0/15 xience 2016October 28, 2021 N o sxs of angina, normal echo EF, doubt she has sxs associated with CAD. May 05, 2022 H as not had risk stratification since stent was put in 2016. Will arrange for Lexiscan stress November 17, 2022 C ONCLUSIONS: 1 . Normal sinus rhythm. Nonspecific ST-T abnormality. 2 . Normal Regadenoson ECG with no ischemic ST or T changes, following vasodilator stress. 3 . Normal left ventricle size. 4 . Left Ventricular Ejection Fraction is 64 % TID: 1.05. 5 . Normal myocardial perfusion imaging with no evidence of ischemia or scar. Quoc Quintana MD [id number],C, S tress test 11/03/22 CONCLUSIONS: 1 . Normal sinus rhythm. Nonspecific ST-T abnormality. 2 . Normal Regadenoson ECG with no ischemic ST or T changes, following vasodilator stress. 3 . Normal left ventricle size. 4 . Left Ventricular Ejection Fraction is 64 % TID: 1.05. 5 . Normal myocardial perfusion imaging with no evidence of ischemia or scar. C AD MARY RCA. DAPT 12 months until; 11/2017. September 12, 2019 S he is still on Plavix. She may benefit from coming off of it now as her risk of bleeding is just higher with being on Eliquis and Plavix. April 25, 2020 C urrently off plavix, remains on eliquis for PAF. 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 May 05, 2022 D oes not want to do cardiac rehab November 17, 2022 S till does not want to do cardiac rehab Quoc Quintana MD [id number],C, o n eliquis 2.5mg BID for afib. No bleeding issues. Quoc Quintana MD [id number],C, C onclusions: 1 . Normal left ventricular systolic function. Normal left ventricular size. Normal left ventricular wall t hickness. There is E to A wave reversal consistent with impaired LV relaxation. Normal E/E` 8.9. Left v entricular ejection fraction is estimated at 60 %. 2 . Normal right ventricular size. Normal right ventricular systolic function. 3 . Pulmonic valve leaflets appear structurally normal. Normal pulmonic valve velocities by Doppler. T here is mild pulmonic regurgitation. 4 . Normal appearing tricuspid valve leaflets. There is trace physiologic tricuspid valve regurgitation. I VC is normal in size with normal respiratory response. The RA pressure is estimated at 3.0 mmHg. E stimated peak pulmonary artery systolic pressure is 22. 5 . There is trace physiologic mitral valve regurgitation. 6 . Normal aortic root size. Mild aortic wall calcificatio Quoc Quintana MD [id number],C, A SA/Plavix 12 months. replaced iwth eliquis and plavix April 25, 2020 N ow off of Plavix remains on Eliquis alone. had MARY RCA 3.0 xience 2016October 28, 2021 N o sxs of angina, normal echo EF, doubt she has sxs associated with CAD. May 05, 2022 H as not had risk stratification since stent was put in 2016. Will arrange for Lexiscan stress November 17, 2022 C ONCLUSIONS: 1 . Normal sinus rhythm. Nonspecific ST-T abnormality. 2 . Normal Regadenoson ECG with no ischemic ST or T changes, following vasodilator stress. 3 . Normal left ventricle size. 4 . Left Ventricular Ejection Fraction is 64 % TID: 1.05. 5 . Normal myocardial perfusion imaging with no evidence of ischemia or scar. Quoc Quintana MD [id number],Caryn P andres BP: 123/77 (05/05/2022) Her updated medication list for this problem includes: Furosemide 20 Mg Tablet (Furosemide) ..... Once a day Lisinopril 5 Mg Tablet (Lisinopril) ..... 1 tablet once a day Carvedilol 12.5 Mg Tablet (Carvedilol) ..... Twice a day Quoc Quintana MD [id number],C,S tress test 11/03/22 CONCLUSIONS: 1 . Normal sinus rhythm. Nonspecific ST-T abnormality. 2 . Normal Regadenoson ECG with no ischemic ST or T changes, following vasodilator stress. 3 . Normal left ventricle size. 4 . Left Ventricular Ejection Fraction is 64 % TID: 1.05. 5 . Normal myocardial perfusion imaging with no evidence of ischemia or scar. C AD MARY RCA. DAPT 12 months until; 11/2017. September 12, 2019 S he is still on Plavix. She may benefit from coming off of it now as her risk of bleeding is just higher with being on Eliquis and Plavix. April 25, 2020 C urrently off plavix, remains on eliquis for PAF. October 28, 2021 R ercika son Eliquis for hx of Afib May 05, 2022 N o bleeding on Eliquis Quoc Quintana MD [id number],S, R ecommended advancing physical activity at home including walking. May 05, 2022 D oes not want to do cardiac rehab Quoc Quintana MD [id number],C, o n eliquis 2.5mg BID for afib. No bleeding issues. Quoc Quintana MD [id number],C, C onclusions: 1 . Normal left ventricular systolic function. Normal left ventricular size. Normal left ventricular wall t hickness. There is E to A wave reversal consistent with impaired LV relaxation. Normal E/E` 8.9. Left v entricular ejection fraction is estimated at 60 %. 2 . Normal right ventricular size. Normal right ventricular systolic function. 3 . Pulmonic valve leaflets appear structurally normal. Normal pulmonic valve velocities by Doppler. T here is mild pulmonic regurgitation. 4 . Normal appearing tricuspid valve leaflets. There is trace physiologic tricuspid valve regurgitation. I VC is normal in size with normal respiratory response. The RA pressure is estimated at 3.0 mmHg. E stimated peak pulmonary artery systolic pressure is 22. 5 . There is trace physiologic mitral valve regurgitation. 6 . Normal aortic root size. Mild aortic wall calcificatio Quoc Quintana MD [id number],S, A SA/Plavix 12 months. replaced iwth eliquis and plavix April 25, 2020 N ow off of Plavix remains on Eliquis alone. had MARY RCA 3.0/15 xience 2016October 28, 2021 N o sxs of angina, normal echo EF, doubt she has sxs associated with CAD. May 05, 2022 H as not had risk stratification since stent was put in 2017. Will arrange for Lexiscan stress Quoc Quintana MD [id number],C, B P today: 123/77 P rior BP: 118/79 (10/28/2021) Her updated medication list for this problem includes: Furosemide 20 Mg Tablet (Furosemide) ..... Once a day Lisinopril 5 Mg Tablet (Lisinopril) ..... 1 tablet once a day Carvedilol 12.5 Mg Tablet (Carvedilol) ..... Twice a day Quoc Quintana MD [id number],C, C AD MARY RCA. DAPT 12 months until; 11/2017. September 12, 2019 S he is still on Plavix. She may benefit from coming off of it now as her risk of bleeding is just higher with being on Eliquis and Plavix. April 25, 2020 C urrently off plavix, remains on eliquis for PAF. October 28, 2021 R emain son Eliquis for hx of Afib May 05, 2022 N o bleeding on Eliquis Quoc Quintana MD [id number],S, A SA/Plavix 12 months. replaced iwth eliquis and plavix April 25, 2020 N ow off of Plavix remains on Eliquis alone. had MARY RCA 3.0/15 xience 2016October 28, 2021 N o sxs of angina, normal echo EF, doubt she has sxs associated with CAD. Quoc Quintana MD [id number],C, B P today: 118/79 P rior BP: 142/82 (04/24/2021) Her updated medication list for this problem includes: Furosemide 20 Mg Tablet (Furosemide) ..... Once a day Lisinopril 5 Mg Tablet (Lisinopril) ..... 1 tablet once a day Carvedilol 12.5 Mg Tablet (Carvedilol) ..... Twice a day Quoc Quintana MD [id number],C, o n eliquis for afib. No bleeding issues. Quco Quintana MD [id number],C, A SA/Plavix 12 months. replaced iwth eliquis and plavix April 25, 2020 N ow off of Plavix remains on Eliquis alone. had MARY RCA 3.0/15 xience 2016 LVF 60% on 02/28 echo. October 28, 2021 R ecent echo showed mornal EF with MAC Quoc Quintana MD [id number],S, C AD MARY RCA. DAPT 12 months until; 11/2017. September 12, 2019 S he is still on Plavix. She may benefit from coming off of it now as her risk of bleeding is just higher with being on Eliquis and Plavix. April 25, 2020 C urrently off plavix, remains on eliquis for PAF. October 28, 2021 R emain son Eliquis for hx of Afib Quoc Quintana MD [id number],S, o n eliquis for afib. No bleeding issues. Quoc Quintana MD [id number],C, D ES to RCA ostium Quoc Quintana MD [id number],C, A SA/Plavix 12 months. replaced iwth eliquis and plavix April 25, 2020 N ow off of Plavix remains on Eliquis alone. had MARY RCA 3.0/15 xience 2016 LVF 60% on 02/28 echo. Quco Quintana MD [id number],C, B P today: 142/82 P rior BP: 120/70 (10/24/2020) Quoc Quintana MD [id number],C, A SA/Plavix 12 months. replaced iwth eliquis and plavix April 25, 2020 N ow off of Plavix remains on Eliquis alone. had MARY RCA 3.0/15 xience 2016 Quoc Quintana MD Cardiology: A SA/Plavix 12 months. replaced iwth eliquis and plavix April 25, 2020 N ow off of Plavix remains on Eliquis alone. had MARY RCA 3.0/15 xience 2016 LVF 60% on 02/28 echo. October 28, 2021 R ecent echo showed mornal EF with MAC June 01, 2023 c heck echo November 30, 2023 echo reviewd the LVEF was 60% Now off of Plavix remains on Eliquis alone. had MARY RCA 3.015 xience 2016 Quoc Quintana MD Cardiology: H er updated medication list for this problem includes: Furosemide 20 Mg Tablet (Furosemide) ..... Once a day Lisinopril 5 Mg Tablet (Lisinopril) ..... 1 tablet once a day Carvedilol 12.5 Mg Tablet (Carvedilol) ..... Twice a day Quoc Quintana MD Cardiology: s /p dual chamber pcm implant biotronic. Quoc Quintana MD Cardiology: S tress test 11/03/22 CONCLUSIONS: 1 . Normal sinus rhythm. Nonspecific ST-T abnormality. 2 . Normal Regadenoson ECG with no ischemic ST or T changes, following vasodilator stress. 3 . Normal left ventricle size. 4 . Left Ventricular Ejection Fraction is 64 % TID: 1.05. 5 . Normal myocardial perfusion imaging with no evidence of ischemia or scar C AD MARY RCA. DAPT 12 months until; 11/2017. J anuary 2024 n o new bleedin on elquis and is on ti for PAF Quoc Quintana MD Cardiology:This visi t has been a part of the consistent, comprehensive, and ongoing management of the chronic medical condition(s) listed above for the patient. BP today: 110/70 P rior BP: 122/80 (08/01/2024) Her updated medication list for this problem includes: Furosemide 20 Mg Tablet (Furosemide) ..... Once a day Lisinopril 5 Mg Tablet (Lisinopril) ..... 1 tablet once a day Carvedilol 12.5 Mg Tablet (Carvedilol) ..... Twice a day Quoc Quintana MD Wound check : S tress test 11/03/22 CONCLUSIONS: 1 . Normal sinus rhythm. Nonspecific ST-T abnormality. 2 . Normal Regadenoson ECG with no ischemic ST or T changes, following vasodilator stress. 3 . Normal left ventricle size. 4 . Left Ventricular Ejection Fraction is 64 % TID: 1.05. 5 . Normal myocardial perfusion imaging with no evidence of ischemia or scar. CAD MARY RCA. DAPT 12 months until; 11/2017. September 12, 2019 S he is still on Plavix. She may benefit from coming off of it now as her risk of bleeding is just higher with being on Eliquis and Plavix. April 25, 2020 C urrently off plavix, remains on eliquis for PAF. October 28, 2021 R emain son Eliquis for hx of Afib May 05, 2022 N o bleeding on Eliquis June 01, 2023 n o new bleeding on eliquis November 30, 2023 no new bleedin on elquis and is on ti for PAF Phyllis López MD Cardiology--wound preethi :s/p dual chamber pcm implant Phyllis López MD Cardiology--wound preethi : C onclusions: 1 . Normal left ventricular systolic function. Normal left ventricular size. Normal left ventricular wall t hickness. There is E to A wave reversal consistent with impaired LV relaxation. Normal E/E` 8.9. Left v entricular ejection fraction is estimated at 60 %. 2 . Normal right ventricular size. Normal right ventricular systolic function. 3. Pulmonic valve leaflets appear structurally normal. Normal pulmonic valve velocities by Doppler. T here is mild pulmonic regurgitation. 4 . Normal appearing tricuspid valve leaflets. There is trace physiologic tricuspid valve regurgitation. I VC is normal in size with normal respiratory response. The RA pressure is estimated at 3.0 mmHg. E stimated peak pulmonary artery systolic pressure is 22. 5 . There is trace physiologic mitral valve regurgitation. 6 . Normal aortic root size. Mild aortic wall calcificatio Phyllis López MD Cardiology--wound preethi : S tress test 11/03/22 CONCLUSIONS: 1 . Normal sinus rhythm. Nonspecific ST-T abnormality. 2 . Normal Regadenoson ECG with no ischemic ST or T changes, following vasodilator stress. 3 . Normal left ventricle size. 4 . Left Ventricular Ejection Fraction is 64 % TID: 1.05. 5 . Normal myocardial perfusion imaging with no evidence of ischemia or scar. & #13; C AD MARY RCA. DAPT 12 months until; 11/2017. September 12, 2019 S he is still on Plavix. She may benefit from coming off of it now as her risk of bleeding is just higher with being on Eliquis and Plavix. April 25, 2020 C urrently off plavix, remains on eliquis for PAF. October 28, 2021 R emain son Eliquis for hx of Afib May 05, 2022 N o bleeding on Eliquis June 01, 2023 n o new bleeding on eliquis November 30, 2023 n o new bleedin on elquis and is on ti for PAF Phyllis López MD Cardiology--wound ch preethi :This visit has been a part of the consistent, comprehensive, and ongoing management of the chronic medical condition(s) listed above for the patient. H er updated medication list for this problem includes: Lisinopril 5 Mg Tablet (Lisinopril) ..... 1 tablet once a day Carvedilol 12.5 Mg Tablet (Carvedilol) ..... Twice a day Phyllis López MD Cardiology--wound ch preethi :This visit has been a part of the consistent, comprehensive, and ongoing management of the chronic medical condition(s) listed above for the patient. BP today: 98/73 Prior BP: 100/80 (06/13/2024) Her updated medication list for this problem includes: Furosemide 20 Mg Tablet (Furosemide) ..... Once a day Lisinopril 5 Mg Tablet (Lisinopril) ..... 1 tablet once a day Carvedilol 12.5 Mg Tablet (Carvedilol) ..... 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 Once a day Lisinopril 5 Mg Tablet (Lisinopril) ..... 1 tablet once a day Carvedilol 12.5 Mg Tablet (Carvedilol) ..... Twice a day Lucretiamel Bocanegraalbinomarv [facility] Cardiology: A SA/Plavix 12 months. replaced iwth eliquis and plavix April 25, 2020 N ow off of Plavix remains on Eliquis alone. had MARY RCA 3.0/15 xience 2016October 28, 2021 N o sxs of angina, normal echo EF, doubt she has sxs associated with CAD. May 05, 2022 H as not had risk stratification since stent was put in 2016. Will arrange for Lexiscan stress November 17, 2022 C ONCLUSIONS: 1 . Normal sinus rhythm. Nonspecific ST-T abnormality. 2 . Normal Regadenoson ECG with no ischemic ST or T changes, following vasodilator stress. 3. Normal left ventricle size. 4 . Left Ventricular Ejection Fraction is 64 % TID: 1.05. 5 . Normal myocardial perfusion imaging with no evidence of ischemia or scar. [facility] Cardiology:12/02/16 D ES to RCA ostium Successful stenting of the ostial RCA with a 3.0 x 15 minutes Xience stent. 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 Normal left ventricular systolic function. Normal left v entricular size. There is E to A wave reversal consistent with impaired LV relaxation. Left ventricular ejection fraction is m easured at 60 %. [facility] Cardiology:diastolic chf H er updated medication list for this problem includes: Furosemide 20 Mg Tablet (Furosemide) ..... Once a day Lisinopril 5 Mg Tablet (Lisinopril) ..... 1 tablet once a day Carvedilol 12.5 Mg Tablet (Carvedilol) ..... Twice a day Quoc Quintana MD Cardiology: 4 8 hr monitor to evaluate for Afib s he has been on eliquis no bleeding Quoc Quintana MD Cardiology: A SA/Plavix 12 months. replaced iwth eliquis and plavix April 25, 2020 N ow off of Plavix remains on Eliquis alone. had MARY RCA 3.0/15 xience 2016 LVF 60% on 02/28 echo. October 28, 2021 R ecent echo showed mornal EF with MAC June 01, 2023 c heck echo November 30, 2023 echo reviewd the LVEF was 60% Now off of Plavix remains on Eliquis alone. had MARY RCA 3.0/15 xience 2016 Quoc Quintana MD Cardiology: A SA/Plavix 12 months. replaced iwth eliquis and plavix April 25, 2020 N ow off of Plavix remains on Eliquis alone. had MARY RCA 3.0/15 xience 2016October 28, 2021 N o sxs of angina, normal echo EF, doubt she has sxs associated with CAD. May 05, 2022 H as not had risk stratification since stent was put in 2016. Will arrange for Lexiscan stress November 17, 2022 C ONCLUSIONS: 1 . Normal sinus rhythm. Nonspecific ST-T abnormality. 2 . Normal Regadenoson ECG with no ischemic ST or T changes, following vasodilator stress. 3. Normal left ventricle size. 4 . Left Ventricular Ejection Fraction is 64 % TID: 1.05. 5 . Normal myocardial perfusion imaging with no evidence of ischemia or scar. Quoc Quintana MD Cardiology: H er updated medication list for this problem includes: Furosemide 20 Mg Tablet (Furosemide) ..... Once a day Lisinopril 5 Mg Tablet (Lisinopril) ..... 1 tablet once a day Carvedilol 12.5 Mg Tablet (Carvedilol) ..... Twice a day BP today: 126/75 P rior BP: 138/80 (06/01/2023) Quoc Quintana MD Cardiology: C onclusions: 1 . Normal left ventricular systolic function. Normal left ventricular size. Normal left ventricular wall t hickness. There is E to A wave reversal consistent with impaired LV relaxation. Normal E/E` 8.9. Left v entricular ejection fraction is estimated at 60 %. 2 . Normal right ventricular size. Normal right ventricular systolic function. 3 . Pulmonic valve leaflets appear structurally normal. Normal pulmonic valve velocities by Doppler. T here is mild pulmonic regurgitation. 4 . Normal appearing tricuspid valve leaflets. There is trace physiologic tricuspid valve regurgitation. I VC is normal in size with normal respiratory response. The RA pressure is estimated at 3.0 mmHg. E stimated peak pulmonary artery systolic pressure is 22. 5. There is trace physiologic mitral valve regurgitation. 6 . Normal aortic root size. Mild aortic wall calcificatio Quoc Quintana MD Cardiology: S tress test 11/03/22 CONCLUSIONS: 1 . Normal sinus rhythm. Nonspecific ST-T abnormality. 2 . Normal Regadenoson ECG with no ischemic ST or T changes, following vasodilator stress. 3 . Normal left ventricle size. 4 . Left Ventricular Ejection Fraction is 64 % TID: 1.05. 5 . Normal myocardial perfusion imaging with no evidence of ischemia or scar. CAD MARY RCA. DAPT 12 months until; 11/2017. September 12, 2019 S he is still on Plavix. She may benefit from coming off of it now as her risk of bleeding is just higher with being on Eliquis and Plavix. April 25, 2020 C urrently off plavix, remains on eliquis for PAF. 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 replaced iwth eliquis and plavix April 25, 2020 N ow off of Plavix remains on Eliquis alone. had MARY RCA 3.0/15 xience 2016 LVF 60% on 02/28 echo. October 28, 2021 R ecent echo showed mornal EF with MAC June 01, 2023 c heck echo Quoc Quintana MD Cardiology: D ES to RCA ostium Quoc Quintana MD Cardiology: A SA/Plavix 12 months. replaced iwth eliquis and plavix April 25, 2020 N ow off of Plavix remains on Eliquis alone. had MARY RCA 3.0/15 xience 2016October 28, 2021 N o sxs of angina, normal echo EF, doubt she has sxs associated with CAD. May 05, 2022 H as not had risk stratification since stent was put in 2016. Will arrange for Lexiscan stress November 17, 2022 C ONCLUSIONS: 1 . Normal sinus rhythm. Nonspecific ST-T abnormality. 2 . Normal Regadenoson ECG with no ischemic ST or T changes, following vasodilator stress. 3. Normal left ventricle size. 4 . Left Ventricular Ejection Fraction is 64 % TID: 1.05. 5 . Normal myocardial perfusion imaging with no evidence of ischemia or scar. Quoc Quintana MD Cardiology: S tress test 11/03/22 CONCLUSIONS: 1 . Normal sinus rhythm. Nonspecific ST-T abnormality. 2 . Normal Regadenoson ECG with no ischemic ST or T changes, following vasodilator stress. 3 . Normal left ventricle size. 4 . Left Ventricular Ejection Fraction is 64 % TID: 1.05. 5 . Normal myocardial perfusion imaging with no evidence of ischemia or scar. CAD MARY RCA. DAPT 12 months until; 11/2017. September 12, 2019 S he is still on Plavix. She may benefit from coming off of it now as her risk of bleeding is just higher with being on Eliquis and Plavix. April 25, 2020 C urrently off plavix, remains on eliquis for PAF. 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 May 05, 2022 D oes not want to do cardiac rehab November 17, 2022 S till does not want to do cardiac rehab Quoc Quintana MD Cardiology: o n eliquis 2.5mg BID for afib. No bleeding issues. Quoc Quintana MD Cardiology: C onclusions: 1 . Normal left ventricular systolic function. Normal left ventricular size. Normal left ventricular wall t hickness. There is E to A wave reversal consistent with impaired LV relaxation. Normal E/E` 8.9. Left v entricular ejection fraction is estimated at 60 %. 2 . Normal right ventricular size. Normal right ventricular systolic function. 3 . Pulmonic valve leaflets appear structurally normal. Normal pulmonic valve velocities by Doppler. T here is mild pulmonic regurgitation. 4 . Normal appearing tricuspid valve leaflets. There is trace physiologic tricuspid valve regurgitation. I VC is normal in size with normal respiratory response. The RA pressure is estimated at 3.0 mmHg. E stimated peak pulmonary artery systolic pressure is 22. 5. There is trace physiologic mitral valve regurgitation. 6 . Normal aortic root size. Mild aortic wall calcificatio Quoc Quintana MD Cardiology: A SA/Plavix 12 months. replaced iwth eliquis and plavix April 25, 2020 N ow off of Plavix remains on Eliquis alone. had MARY RCA 3.0/15 xience 2017 October 28, 2021 N o sxs of angina, normal echo EF, doubt she has sxs associated with CAD. May 05, 2022 H as not had risk stratification since stent was put in 2017. Will arrange for Lexiscan stress November 17, 2022 C ONCLUSIONS: 1 . Normal sinus rhythm. Nonspecific ST-T abnormality. 2 . Normal Regadenoson ECG with no ischemic ST or T changes, following vasodilator stress. 3. Normal left ventricle size. 4 . Left Ventricular Ejection Fraction is 64 % TID: 1.05. 5 . Normal myocardial perfusion imaging with no evidence of ischemia or scar. Quoc Quintana MD Cardiology: P rior BP: 123/77 (05/05/2022) Her updated medication list for this problem includes: Furosemide 20 Mg Tablet (Furosemide) ..... Once a day Lisinopril 5 Mg Tablet (Lisinopril) ..... 1 tablet once a day Carvedilol 12.5 Mg Tablet (Carvedilol) ..... Twice a day Qouc Quintana MD Cardiology:Stress te st 11/03/22 CONCLUSIONS: 1 . Normal sinus rhythm. Nonspecific ST-T abnormality. 2 . Normal Regadenoson ECG with no ischemic ST or T changes, following vasodilator stress. 3 . Normal left ventricle size. 4 . Left Ventricular Ejection Fraction is 64 % TID: 1.05. 5 . Normal myocardial perfusion imaging with no evidence of ischemia or scar. C AD MARY RCA. DAPT 12 months until; 11/2017. September 12, 2019 S he is still on Plavix. She may benefit from coming off of it now as her risk of bleeding is just higher with being on Eliquis and Plavix. April 25, 2020 C urrently off plavix, remains on eliquis for PAF. October 28, 2021 R emain son Eliquis for hx of Afib May 05, 2022 N o bleeding on Eliquis Quoc Quintana MD Cardiology: R ecommended advancing physical activity at home including walking. May 05, 2022 D oes not want to do cardiac rehab Quoc Quintana MD Cardiology: o n eliquis 2.5mg BID for afib. No bleeding issues. Quoc Quintana MD Cardiology: C onclusions: 1 . Normal left ventricular systolic function. Normal left ventricular size. Normal left ventricular wall t hickness. There is E to A wave reversal consistent with impaired LV relaxation. Normal E/E` 8.9. Left v entricular ejection fraction is estimated at 60 %. 2 . Normal right ventricular size. Normal right ventricular systolic function. 3 . Pulmonic valve leaflets appear structurally normal. Normal pulmonic valve velocities by Doppler. T here is mild pulmonic regurgitation. 4 . Normal appearing tricuspid valve leaflets. There is trace physiologic tricuspid valve regurgitation. I VC is normal in size with normal respiratory response. The RA pressure is estimated at 3.0 mmHg. E stimated peak pulmonary artery systolic pressure is 22. 5. There is trace physiologic mitral valve regurgitation. 6 . Normal aortic root size. Mild aortic wall calcificatio Quoc Quintana MD Cardiology: A SA/Plavix 12 months. replaced iwth eliquis and plavix April 25, 2020 N ow off of Plavix remains on Eliquis alone. had MARY RCA 3.015 xience 2016October 28, 2021 N o sxs of angina, normal echo EF, doubt she has sxs associated with CAD. May 05, 2022 H as not had risk stratification since stent was put in 2016. Will arrange for Lexiscan stress Quoc Quintana MD Cardiology: B P today: 123/77 P rior BP: 118/79 (10/28/2021) Her updated medication list for this problem includes: Furosemide 20 Mg Tablet (Furosemide) ..... Once a day Lisinopril 5 Mg Tablet (Lisinopril) ..... 1 tablet once a day Carvedilol 12.5 Mg Tablet (Carvedilol) ..... Twice a day Quoc Quintana MD Cardiology: C AD MARY RCA. DAPT 12 months until; 11/2017. September 12, 2019 S he is still on Plavix. She may benefit from coming off of it now as her risk of bleeding is just higher with being on Eliquis and Plavix. April 25, 2020 C urrently off plavix, remains on eliquis for PAF. October 28, 2021 R ericka son Eliquis for hx of Afib May 05, 2022 N o bleeding on Eliquis Quoc Quintana MD Cardiology: A SA/Plavix 12 months. replaced iwth eliquis and plavix April 25, 2020 N ow off of Plavix remains on Eliquis alone. had MARY RCA 3.0/15 xience 2016October 28, 2021 N o sxs of angina, normal echo EF, doubt she has sxs associated with CAD. Quoc Quintana MD Cardiology: B P today: 118/79 P rior BP: 142/82 (04/24/2021) Her updated medication list for this problem includes: Furosemide 20 Mg Tablet (Furosemide) ..... Once a day Lisinopril 5 Mg Tablet (Lisinopril) ..... 1 tablet once a day Carvedilol 12.5 Mg Tablet (Carvedilol) ..... Twice a day Quoc Quintana MD Cardiology: o n eliquis for afib. No bleeding issues. Quoc Quintana MD Cardiology: A SA/Plavix 12 months. replaced iwth eliquis and plavix April 25, 2020 N ow off of Plavix remains on Eliquis alone. had MARY RCA 3.0/15 xience 2016 LVF 60% on 02/28 echo. October 28, 2021 R ecent echo showed mornal EF with MAC Quoc Quintana MD Cardiology: C AD MARY RCA. DAPT 12 months until; 11/2017. September 12, 2019 S he is still on Plavix. She may benefit from coming off of it now as her risk of bleeding is just higher with being on Eliquis and Plavix. April 25, 2020 C urrently off plavix, remains on eliquis for PAF. October 28, 2021 R ericka jhaveri Eliquis for hx of Afib Quoc Quintana MD Cardiology: o n eliquis for afib. No bleeding issues. Quoc Quintana MD Cardiology: D ES to RCA ostium Quoc Quintana MD Cardiology: A SA/Plavix 12 months. replaced iwth eliquis and plavix April 25, 2020 N ow off of Plavix remains on Eliquis alone. had MARY RCA 3.0/15 xience 2016 LVF 60% on 02/28 echo. Quoc Quintana MD Cardiology: B P today: 142/82 P rior BP: 120/70 (10/24/2020) Quoc Quintana MD Cardiology: A SA/Plavix 12 months. replaced iwth eliquis and plavix April 25, 2020 N ow off of Plavix remains on Eliquis alone. had MARY RCA 3.0/15 xience 2017 Quoc Quintana MD Cardiology Follow up : o n eliquis for afib. No bleeding issues. Quoc Quintana MD Cardiology Follow up : D ES to RCA ostium Quoc Quintana MD Cardiology Follow up : B P today: 120/70 P rior BP: 137/89 (04/25/2020) Her updated medication list for this problem includes: Furosemide 20 Mg Oral Tablet (Furosemide) ..... Once daily Lisinopril 5 Mg Oral Tablet (Lisinopril) ..... One tab. daily Carvedilol 12.5 Mg Oral Tablet (Carvedilol) ..... Twice daily Quoc Quintana MD Cardiology Follow up : H er updated medication list for this problem includes: Levothyroxine Sodium 50 Mcg Oral Tablet (Levothyroxine sodium) ..... Take 1 tab dialy Quoc Quintana MD Cardiology Follow up : A SA/Plavix 12 months. replaced iwth eliquis and plavix April 25, 2020 N ow off of Plavix remains on Eliquis alone. had MARY RCA 3.0/15 xience 2016 Quoc Quintana MD Cardiology Follow up :Recommended advancing physical activity at home including walking Quoc Quintana MD Cardiology Follow up : e cho 2018 Conclusions: 1 . Normal left ventricular systolic function. Normal left ventricular size. Normal left ventricular wall t hickness. There is E to A wave reversal consistent with impaired LV relaxation. Normal E/E` 8.9. Left v entricular ejection fraction is estimated at 60 %. 2 . Normal right ventricular size. Normal right ventricular systolic function. 3 . Pulmonic valve leaflets appear structurally normal. Normal pulmonic valve velocities by Doppler. T here is mild pulmonic regurgitation. LAURA LEONARDO will order new echo this year Quoc Quintana MD Cardiology followup : A SA/Plavix 12 months. replaced iwth eliquis and plavix April 25, 2020 N ow off of Plavix remains on Eliquis alone. Quoc Quintana MD Cardiology followup :Conclusions: 1 . Normal left ventricular systolic function. Normal left ventricular size. Normal left ventricular wall t hickness. There is E to A wave reversal consistent with impaired LV relaxation. Normal E/E` 8.9. Left v entricular ejection fraction is estimated at 60 %. 2 . Normal right ventricular size. Normal right ventricular systolic function. 3 . Pulmonic valve leaflets appear structurally normal. Normal pulmonic valve velocities by Doppler. T here is mild pulmonic regurgitation. 4 . Normal appearing tricuspid valve leaflets. There is trace physiologic tricuspid valve regurgitation. I VC is normal in size with normal respiratory response. The RA pressure is estimated at 3.0 mmHg. E stimated peak pulmonary artery systolic pressure is 22. 5 . There is trace physiologic mitral valve regurgitation. 6 . Normal aortic root size. Mild aortic wall calcificatio Quoc Quintana MD Cardiology followup : B P today: 137/89 P rior BP: 116/64 (09/12/2019) Her updated medication list for this problem includes: Furosemide 20 Mg Oral Tablet (Furosemide) ..... Once daily Lisinopril 5 Mg Oral Tablet (Lisinopril) ..... One tab. daily Carvedilol 12.5 Mg Oral Tablet (Carvedilol) ..... Twice daily Quoc Quintana MD Cardiology followup : C AD MARY RCA. DAPT 12 months until; 11/2017. September 12, 2019 S he is still on Plavix. She may benefit from coming off of it now as her risk of bleeding is just higher with being on Eliquis and Plavix. April 25, 2020 C urrently off plavix, remains on eliquis for PAF. Quoc Quintana MD Cardiology followup : o n eliquis for afib. No bleeding issues. Quoc Quintana MD Cardiology follow up : C onclusions: 1 . Normal left ventricular systolic function. Normal left ventricular size. Normal left ventricular wall t hickness. There is E to A wave reversal consistent with impaired LV relaxation. Normal E/E` 8.9. Left v entricular ejection fraction is estimated at 60 %. 2 . Normal right ventricular size. Normal right ventricular systolic function. 3 . Pulmonic valve leaflets appear structurally normal. Normal pulmonic valve velocities by Doppler. T here is mild pulmonic regurgitation. LAURA LEONARDO Study Dt:01/17/2019 Page 3 of 3 4 . Normal appearing tricuspid valve leaflets. There is trace physiologic tricuspid valve regurgitation. I VC is normal in size with normal respiratory response. The RA pressure is estimated at 3.0 mmHg. E stimated peak pulmonary artery systolic pressure is 22. 5 . There is trace physiologic mitral valve regurgitation. 6 . Normal aortic root size. Mild aortic wall calcification. Quoc Quintana MD Cardiology follow up Quoc davis MD Cardiology follow up Quoc davis MD Cardiology follow up : C AD MARY RCA. DAPT 12 months until; 11/2017. September 12, 2019 S he is still on Plavix. She may benefit from coming off of it now as her risk of bleeding is just higher with being on Eliquis and Plavix. Quoc Quintana MD Cardiology follow up : o n eliquis for afib. No bleeding issues. Quoc Quintana MD Cardiology: L VEF had improved on MUGA scan 02/23/17. Quoc Quintana MD Cardiology:Has signi ficantly improved since last visit. Off home O2. Still on eliquis for arrhythmia. W ill get PFTs. Quoc Quintana MD Cardiology: C AD MARY RCA. DAPT 12 months until; 11/2017. Quoc Quintana MD Cardiology: H er updated medication list for this problem includes: Furosemide 20 Mg Oral Tablet (Furosemide) ..... Once daily Lisinopril 5 Mg Oral Tablet (Lisinopril) ..... One tab. daily Carvedilol 12.5 Mg Oral Tablet (Carvedilol) ..... Twice daily BP today: 118/76 P rior BP: 111/59 (06/23/2018) Quoc Quintana MD Cardiology: B P today: 111/59 P rior BP: 110/70 (12/28/2017) Her updated medication list for this problem includes: Furosemide 20 Mg Oral Tablet (Furosemide) ..... Once daily Lisinopril 5 Mg Oral Tablet (Lisinopril) ..... One tab. daily Carvedilol 12.5 Mg Oral Tablet (Carvedilol) ..... Twice daily Quoc Quintana MD Cardiology Quoc Quintana MD Cardiology: A SA/Plavix 12 months. replaced iwth eliquis and plavix Quoc Quintana MD Cardiology:on eliqui s for afib H er updated medication list for this prooblem includes: Lisinopril 5 Mg Oral Tablet (Lisinopril) ..... One tab. daily Carvedilol 12.5 Mg Oral Tablet (Carvedilol) ..... Twice daily Clopidogrel Bisulfate 75 Mg Oral Tablet (Clopidogrel bisulfate) ..... Once daily Quoc Quintana MD Cardiology: S tarted on Tx per PCP. Quoc Quintana MD Cardiology: C AD MARY RCA. DAPT 12 months until; 11/2017. Quoc Quintana MD Cardiology:On Eliqui s. M obile tele for 1 week. Orders: [id number] MOD Complex ([id number]) M obile Cardiac Tele ([id number]) [facility] Cardiology:Started on Tx per PCP . Quoc Quintana MD Cardiology:LVF 60% on 02/28 echo. Quoc Quintana MD Cardiology:On Eliquis. Quoc Quintana MD Cardiology: A SA/Plavix 12 months. Quoc Quintana MD Cardiology: C AD MARY RCA. DAPT 12 months until; 11/2017. Quoc Quintana MD Cardiology:LVEF had improved on MUGA scan 02/23/17. Quoc Quintana MD Cardiology:Takes Tramadol. Kaylee Quintana MD Cardiology:BP margin ally elevated. W ill try not to uptitrate meds to avoid hypotension. Quoc Quintana MD Cardiology Quoc Quintana MD Cardiology:CAD MARY R CA. DAPT 12 months until; 11/2017. Quoc Quintana MD Cardiology: E liquis. No bleeding issues. Quoc Quintana MD Cardiology:Improved based on recent MUGA and echo. About 60%. H er updated medication list for this problem includes: Lisinopril 5 Mg Tabs (Lisinopril) ..... One tab. daily Carvedilol 12.5 Mg Oral Tabs (Carvedilol) ..... Twice daily Clopidogrel Bisulfate 75 Mg Oral Tabs (Clopidogrel bisulfate) ..... Once daily Quoc Quintana MD Cardiology:ASA/Plavix 12 months. Quoc Quintana MD Cardiology:Eliquis. Quoc tijerina MD Cardiology:Check MUG A for LVEF H er updated medication list for this problem includes: Lisinopril 40 Mg Oral Tabs (Lisinopril) ..... 1/2 tab once daily Carvedilol 12.5 Mg Oral Tabs (Carvedilol) ..... Twice daily Clopidogrel Bisulfate 75 Mg Oral Tabs (Clopidogrel bisulfate) ..... Once daily Quoc Quintana MD Cardiology:Will dete rmine if wall motion has improved after NV, with echo and assess valvular disease. Currently remains on Plavix and Eliquis. Not on aspirin. Quoc Quintana MD Cardiology:MARY to RCA ostium Mamadou Quintana MD Cardiology:Currently in sinus rhythm. Maintained on Eliquis 2.5mg twice a day for afib prophylaxis, due to age, weight. Quoc Quintana MD Date Name Complete Echo Holter Monitor 48 hr Complete Echo Stress Regadenoson Complete Echo Stress Regadenoson Carotid Duplex Bilat eral 6 minute walk test Ambulatory Oximetry DLCO - 97748 FRC - 46843 FVC - 86694 Complete Echo Mobile Cardiac Tele MUGA (LVEF) Complete Echo HISTORY OF PROCEDURES Procedure Date Procedure Name Provider Procedure Notes S tatus EKG Quoc Quintana MD completed EKG Phyllis López MD complet ed EKG Phyllis López MD complet ed Complex e/m visit add on Quoc Quintana MD completed EKG Quoc Quintana MD completed EKG Quoc Quintana MD completed EKG Quoc Quintana MD completed EKG Quoc Quintana MD completed EKG Quoc Quintana MD completed EKG Quoc Quintana MD completed EKG Quoc Quintana MD completed EKG Quoc Quintana MD completed EKG Quoc Quintana MD completed FVC / MVV with bronchodilator and 6min walk/titration Quoc Quintana MD completed BLOOD COUNT HEMOGLOBIN Quoc Quintana MD completed FRC - 00359 Quoc Quintana MD completed SpO2 w/o 6min walk/titration Quoc Quintana MD completed DLCO - 58975 Quoc Quintana MD completed Event Monitor uQoc Quintana MD completed SNOMED-CT: [id number] Current Medications Documented Quoc Quintana MD completed EKG Quoc Quintana MD completed SNOMED-CT: [id number] [id number] Current Medications Documented Quoc Quintana MD completed Ultra Tag RBCs, 1 unit Quoc Quintana MD completed JOSE Kingsley MD completed EKG Quoc Quintana MD completed SNOMED-CT: [id number] Current Medications Documented Quoc Quintana MD completed
--- OUTSIDE RECORDS SUMMARY | 2024-10-16 19:15 | XMS_ITS ---
Author Organization [facility] [place] Tonya Shore nsion Address [address] [place] [address] [place] [address] Care Team Providers Care Spinning Bath Patroller Name Role Phone Gabrielle Thompson DO Primary Care Provider [phone] Jr Landon DO Unavailable [phone] Isa Garcia MD Unavailable [phone] Genaro Boo MD Unavailable [phone] Asher Grover MD Unavailable Phyllis López MD Unavailable [phone] Active Problems Problem Noted Date Diagnosed Date Esophagitis 10/11/2024 Pacemaker 07/16/2024 Moderate protein-calorie malnutrition (CMS/HCC) 07/16/2024 Hypokalemia 07/15/2024 Complete heart block (CMS/HCC) 06/20/2024 Sinus bradycardia 06/13/2024 Dysphagia 06/13/2024 CHF (congestive heart failure) (CMS/HCC) 018 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, estrogen receptor positive 04/21/2018 Cancer Staging:Clinical stage from 04/29/2016:Stage IB(cT1c, cN1, cM0, G2, ER: Positive, MS: Positive, HER2: Negative) - Signed by Genaro Schwab MD on 04/24/2018 Hypothyroidism 12/28/2017 Arteriosclerosis of coronary artery 01/21/2017 Cardiovascular symptoms 01/21/2017 Chronic diastolic (congestive) heart failure 04/2017 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 Past Treatment and Therapy Plans No past plan information found. Lifetime Dose Tracking * Chemical Lifetime Dose Automatic Entry Manual Entr y Fluoro Time 9.21 minutes 9.21 minutes 0 minutes Air kerma at the reference point (Ka,r) 644.187 mGy 6 4.187 mGy 580 mGy
--- OUTSIDE RECORDS SUMMARY | 2024-10-16 19:15 | XMS_ITS | Encounter Summary ---
Author Organization [facility] Address [address] [place] [address] Care Team Providers Care Investigator Welfare Name Role Phone Gabrielle Thompson DO Primary Care Provider [phone] Jr Landon DO Unavailable [phone] Isa Garcia MD Unavailable [phone] Genaro Boo MD Unavailable [phone] Asher Grover MD Unavailable Phyllis López MD Unavailable [phone] Encounter Details Date Type Department Care Team (Late st Contact Info) Description 10/16/2024 Results Follow-Up [facility] Gastroenterology at [address] [place] [id number] Isa Garcia MD [address] [place] [id number] Social History Tobacco Use Types Packs/Day Years Used Date Smoking Tobacco: Never Smokeless Tobacco: Never Alcohol Use Standard Drinks/Week Comments No 0 (1 standard drink = 0.6 oz pur e alcohol) OASIS D0700: Social Isolation Answer Da te Recorded Frequency of experiencing loneliness or isolatio n Never 07/05/2024 OASIS A1250: Transportation Answer Date Recorded Lack of Transportation (Medical) No 07/05/2024 Lack of Transportation (Non-Medical) No 07/05/2024 Patient Unable or Declines to Respond No 07/05/2024 OASIS B1300: Health Literacy Answer Julio Cesar e Recorded Frequency of needing help to read materials from doctor or pharmacy Never 07/05/2024 [facility] Utilities Answer Date Recorded In the past 12 months has th e electric, gas, oil, or water company threatened to shut off services in your home? No 07/17/2024 Social Connection and Isolation Panel [NHANES] A nswer Date Recorded In a typical week, how many times do you talk on the phone with family, friends, or neighbors? Three times a week 07/17/20 How often do you get togethe r with friends or relatives? Once a week 07/17/2024 How often do you attend chur ch or sikh services? 1 to 4 times per year 07/17/2024 Do you belong to any clubs o r organizations such as shinto groups, unions, fraternal or athletic groups, or school groups? No 07/17/2024 How often do you attend meet ings of the clubs or organizations you belong to? Never 07/17/2024 Are you , , di vorced, , never , or living with a partner? 07/17/2024 AUDIT-C Answer Date Recorded Q1: How often do you have a drink containing alcohol? Never 10/11/2024 Q2: How many drinks containi ng alcohol do you have on a typical day when you are drinking? Patient does not drink Q3: How often do you have si x or more drinks on one occasion? Never 10/11/2024 Overall Financial Resource Strain (CARDIA) Answe r Date Recorded How hard is it for you to pa y for the very basics like food, housing, medical care, and heating? Not very hard 07/17/2024 Hunger Vital Sign Answer Date Recorded Within the past 12 months, y ou worried that your food would run out before you got the money to buy more. Never true 07/17/20 24 Within the past 12 months, t he food you bought just didn't last and you didn't have money to get more. Never true 07/17/2024 PRAPARE - Transportation Answer Date Re corded In the past 12 months, has l ack of transportation kept you from medical appointments or from getting medications? No 10/2023 In the past 12 months, has l ack of transportation kept you from meetings, work, or from getting things needed for daily living? No 07/17/2024 Housing Stability Vital Sign Answer Julio Cesar e Recorded In the last 12 months, was t here a time when you were not able to pay the mortgage or rent on time? No 07/17/2024 In the past 12 months, how m any times have you moved where you were living? 0 07/17/2024 At any time in the past 12 m [facility], were you homeless or living in a group home (including now)? No 07/17/2024 Personal Safety Answer Date Recorded Have you ever been in or are you currently in a harmful physical or emotional relationship or is someone making you feel afraid or unsafe? 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 Gender Identity Not on file Sexual Orientation Not on file documented as of this encounter Plan of Treatment Not on file documented as of this encounter Visit Diagnoses Not on filedocumented in this encounter Care Teams Investigator Welfare Relationship Specialty Start Date End Date Gabrielle Thompson DO PCP - General 01/29/19 Jr Landon DO Medical Oncologist/Hematologis t Hematology and Oncology 11/04/20 [place] [id number] [facility] [address] [place] [address] Gastroenterology 06/27/24 [place] [address] [facility] [address] [place] [address] Consulting Physician Pulmonary Disease 06/27/24 Asher Grover MD [address] [place] [address] Referring Physician Cardiology 06/27/24 Phyllis López MD [address] [place] [address] Consulting Physician Cardiology 07/19/24 documented as of this encounter
--- OUTSIDE RECORDS SUMMARY | 2024-10-16 19:15 | XMS_ITS | Clinical Summary ---
Author Organization [facility] Tonya Shore nsion Address [address] [place] [address] [place] [address] Care Team Providers Care Supervisor Commissary Production Name Role Phone Gabrielle Thompson DO Primary Care Provider [phone] Jr Landon DO Unavailable [phone] Isa Garcia MD Unavailable [phone] Genaro Boo MD Unavailable [phone] Asher Grover MD Unavailable Phyllis López MD Unavailable Allergies No known active allergies Medications apixaban (ELIQUIS) 2.5 mg tabletIndications :atrial fibrillation 04/26/2017Eliquis, po solid 2.5 mg TabletPOBIDCurrent Medication 017 Active multivitamin capsuleIndication s:Vitamin Deficiency 04/26/2017Multivitamin , po solid TabletPOdailyCurrent Medication 017 Active acetaminophen (TYLENOL) 325 mg tabletIndications :Pain Take 2 tablets (650 mg total) by mouth every 6 (six) hours as needed for pain 30 tablet 024 Active amLODIPine (NORVASC) 10 mg tabletIndications :hypertension Take 1 tablet (10 mg total) by mouth daily 30 tablet 2024 Active aspirin 81 mg enteric coated tabletIndications :Myocardial Reinfarction Prevention Take 1 tablet (81 mg total) by mouth daily 30 tablet 2024 Active benzonatate (TESSALON) 100 mg capsuleIndication s:Cough Take 1 capsule (100 mg total) by mouth 3 (three) times a day 20 capsule Active Additional Information Patient taking differently:100 mg oral3 times daily PRN, cough, Indications: Cough, Reported on 10/11/2024 busPIRone (BUSPAR) 5 mg tabletIndications :Generalized Anxiety Disorder Take 1 tablet (5 mg total) by mouth 2 (two) times a day 60 tablet 2024 Active docusate sodium (COLACE) 100 mg capsuleIndication s:constipation Take 1 capsule (100 mg total) by mouth 2 (two) times a day 30 capsule Active furosemide (LASIX) 20 mg tabletIndications :hypertension Take 1 tablet (20 mg total) by mouth 2 (two) times a day 60 tablet 2024 Active levothyroxine (SYNTHROID) 50 mcg tabletIndications :hypothyroidism Take 1 tablet (50 mcg total) by mouth senior environmental technician before breakfast 30 tablet Active loratadine (CLARITIN) 10 mg tabletIndications :Allergic Conjunctivitis Take 1 tablet (10 mg total) by mouth daily 30 tablet 2024 Active lovastatin (MEVACOR) 40 mg tabletIndications :hypercholesterol emia Take 1 tablet (40 mg total) by mouth daily 30 tablet 2024 Active senna-docusate (PERICOLACE) 8.6-50 mgIndications:con stipation Take 1 tablet by mouth 2 (two) times a day as needed for constipation [address] (PROTONIX) 40 mg EC tabletIndications :Stress Ulcer Prophylaxis Take 1 tablet (40 mg total) by mouth 2 (two) times a day Take 30 minutes before breakfast and dinner 180 tablet 3 Active lisinopriL (PRINIVIL,ZESTRIL ) 5 mg tablet Take 1 tablet (5 mg total) by mouth daily 024 Active sertraline (ZOLOFT) 100 mg tablet Take 1 tablet (100 mg total) by mouth daily Act deon traMADoL (ULTRAM) 50 mg tablet Take 1 tablet (50 mg total) by mouth every 6 (six) hours as needed for pain Active gabapentin (NEURONTIN) 300 mg capsule Take 1 capsule (300 mg total) by mouth 2 (two) times a day Active pantoprazole DR (PROTONIX) 40 mg EC tablet Take 1 tablet (40 mg total) by mouth 2 (two) times a day 180 tablet 1 025 2024 Active Active Problems Problem Noted Date Diagnosed Date Esophagitis 10/11/2024 Pacemaker 07/16/2024 Moderate protein-calorie malnutrition (CMS/HCC) 07/16/2024 Hypokalemia 07/15/2024 Complete heart block (CMS/HCC) 06/20/2024 Sinus bradycardia 06/13/2024 Dysphagia 06/13/2024 CHF (congestive heart failure) (CMS/HCC) 018 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, estrogen receptor positive 04/21/2018 Cancer Staging:Clinical stage from 04/29/2016:Stage IB(cT1c, cN1, cM0, G2, ER: Positive, WI: Positive, HER2: Negative) - Signed by Genaro [...] Primary hypertension 01/21/2017 Shortness of breath 01/21/2017 Encounters Date Type Department Care Team Description 5 Results Follow-Up [facility] Gastroenterology at [address] [address] Isa Garcia MD 5 2:14 PM STUDENT LIFE COORDINATOR Anesthesia Event [facility] GI Lab [address] [place] [address] Oswald Guaman MD 5 2:00 PM STUDENT LIFE COORDINATOR - 5 2:30 PM STUDENT LIFE COORDINATOR Surgery [facility] GI Lab [address] [place] [address] Isa Garcia MD ESOPHAGOGASTRODUODENOSCOPY BIOPSY 5 1:10 PM STUDENT LIFE COORDINATOR - 5 3:25 PM STUDENT LIFE COORDINATOR Hospital Encounter [facility] GI Lab [address] [place] [address] Isa Garcia MD Dysphagia, unspecified type Discharge Disposition: Discharge to home or self care 4 10:02 AM STUDENT LIFE COORDINATOR - 4 11:59 PM STUDENT LIFE COORDINATOR Hospital Encounter [facility] Imaging and Radiology [address] [place] [id number] Other nonspecific abnormal finding of lung field Discharge Disposition: Discharge to home or self care 4 Home Care Visit [address] [place] [address] [address] [place] [address] Belinda Velasquez RN SN VIRTUAL NON OASIS DISCHARGE 4 10:02 PM STUDENT LIFE COORDINATOR - 4 5:33 PM STUDENT LIFE COORDINATOR Hospital Encounter [address] [address] Andrews Dalton MD Rudomiotov, Olga, MD Burton, Jeffrey Ryan, Hypokalemia (Primary Dx); Pacemaker twiddler's syndrome, initial encounter Discharge Disposition: Discharge to SNF from Last 3 Months Immunizations Immunization Administration Dates Next Due Influenza, Quadrivalent, Hig h Dose, Preservative Free, Intrr 05/05/2023 Influenza, Trivalent, High D ose, Split, Preservative Free, Intramuscular 05/03/2024,05/25/2019 Influenza, Unspecified 05/24/2018,05/24/2017 Pneumococcal Conjugate Pcv20 05/03/2024 Pneumococcal Conjugate, Unspecified 04/24/2014 Surgical History Surgery Date Site/Laterality Comments MASTECTOMY BREAST BIOPSY CHOLECYSTECTOMY APPENDECTOMY COLONOSCOPY BREAST BIOPSY 04/30/2016 Left CARDIAC PACEMAKER PLACEMENT 06/19/2024 Medical History Medical History Date Comments Breast cancer (HCC) Myocardial infarction (HCC) Family History Medical History Relation Name Comments Early Father Relation Name Status Comments Father Social History Tobacco Use Types Packs/Day Years [...] materials from doctor or pharmacy Never 07/05/2024 [facility] Utilities Answer Date Recorded In the past 12 months has th e [employer], gas, oil, or water company threatened to [...] often do you attend chur ch or latter day services? 1 to 4 times per year 07/17/2024 Do you belong to any clubs o r organizations such as scientology groups, unions, fraternal or athletic groups, or [...] any time in the past [address] [facility], were you homeless or living in a penitentiary (including now)? No 07/17/2024 Personal Safety Answer Date Recorded Have you ever been in or are you currently in a harmful physical or emotional relationship or is someone making you feel afraid or unsafe? Denies 10/11/2024 Comments No Sex and Gender Information Value Date Recorded Sex Assigned at Not on file Legal Sex Female 11:43 AM STUDENT LIFE COORDINATOR Gender Identity Not on file Sexual Orientation Not on file Obstetrics History Para Term AB IAB SAB Ectopic Multiple Livin g Live Births 3 Date Outcome GA Total Labor Labor/2nd/3rd Weight Sex Type Anes PTL Melissa A1 A5 Name Clin Last Filed Vital Signs Vital Sign Reading Time Taken Comments Blood Pressure 152/73 10/11/2024 3:25 PM STUDENT LIFE COORDINATOR Pulse 82 10/11/2024 3:25 PM STUDENT LIFE COORDINATOR Temperature 37.2 C (98.9 F) 07/19/2024 4:25 PM STUDENT LIFE COORDINATOR Respiratory Rate 15 10/11/2024 3:25 PM STUDENT LIFE COORDINATOR Oxygen Saturation 96% 10/11/2024 3:25 PM STUDENT LIFE COORDINATOR Inhaled Oxygen Concentration - - Weight 49.4 kg (109 lb) 10/11/2024 1:41 PM STUDENT LIFE COORDINATOR Height 144.8 cm (4' 9 ) 10/11/2024 1:41 PM STUDENT LIFE COORDINATOR Body Mass Index 23.59 10/11/2024 1:41 PM STUDENT LIFE COORDINATOR Plan of Treatment Health Maintenance Due Date Last Done Comments Depression Screening 1935 DTaP/Tdap/Td Vaccine (1 - Tdap) 1946 Hepatitis B Screening 1953 Zoster Vaccine (1 of 2) 1985 Well Visit 65+ 2000 Fall Risk Assessment 10/11/2025 10/11/2024 Influenza Vaccine Completed 05/03/2024, , 05/25/2019, Additional history exists Pneumococcal vaccine 65+ Completed 05/03/2024, 04/15 Medical Devices Implanted Type Area Associate Financial Advisor Device Identifier Shelf Expiration Date Model / Serial / Lot ironSource Angio-Seal Vip 6fr Closere Device [id number] - [id number] Implanted:Qty: 1 on 06/14/2024 [id number] / / [employer] Solia S 53cm Steroid Elute Bipolar Active Fixation Endocardial [id number] - [id number] - [id number] Implanted:Qty: 1 on 06/15/2024 by Phyllis López MD at [facility] [employer] Light 04/14/2026 [id number] / [id number] / [employer] Solia S 45cm Bipolar Active Fixation Lead Pacing Steroid Eluting [id number] - [id number] - [id number] Implanted:Qty: 1 on 06/15/2024 by Phyllis López MD at [facility] [employer] 05/14/2026 [id number] / [id number] / [employer] Pacemaker Implantable Amvia Edge Dual Chamb Rate-Responsive [id number] - [id number] - [id number] Implanted:Qty: 1 on 06/15/2024 by Phyllis López MD at [facility] EntrisphereroniEvalYou [facility] 09/14/2025 [id number] / [id number] / Procedures Procedure Name Priority Date/Time Associated Diagnosis Comments ESOPHAGOGASTRODUODENOSCOPY BIOPSY 10/11/2024 2:11 PM STUDENT LIFE COORDINATOR Dysphagia, unspecified type EGD 10/11/2024 12:57 PM STUDENT LIFE COORDINATOR SURGICAL PATHOLOGY Routine 10/11/2024 9:54 AM STUDENT LIFE COORDINATOR Dysphagia, unspecified type CT CHEST WO CONTRAST Schedule Routine, Read Routine (OP Routine) 08/06/2024 10:17 AM STUDENT LIFE COORDINATOR Other nonspecific abnormal finding of lung field EGFR Routine 07/19/2024 2:40 AM STUDENT LIFE COORDINATOR BASIC METABOLIC PANEL Routine 07/19/2024 2:40 AM STUDENT LIFE COORDINATOR CBC WITHOUT DIFFERENTIAL Routine 024 2:40 AM STUDENT LIFE COORDINATOR FOLATE Add-On 07/18/2024 1:44 AM STUDENT LIFE COORDINATOR VITAMIN B12 Add-On 07/18/2024 1:44 AM STUDENT LIFE COORDINATOR EGFR Routine 07/18/2024 1:44 AM STUDENT LIFE COORDINATOR BASIC METABOLIC PANEL Routine 07/18/2024 1:44 AM STUDENT LIFE COORDINATOR CBC WITHOUT DIFFERENTIAL Routine 024 1:44 AM STUDENT LIFE COORDINATOR from Last 3 Months Results * EGD (10/11/2024 12:57 PM STUDENT LIFE COORDINATOR) Anatomical Region Laterality Modality Other Narrative Procedure Note Isa Garcia MD - 10/11/2024 12:57 PM CST [facility] Patient Name: Kristin Kendall Procedure Date: 10/11/2024 12:57 PM Date of : 1935 Admit Type: Outpatient Age: 89 Gender: Female Note Status: Finalized Attending MD: Isa Garcia M.D. Procedure Date: 10/11/2024 Procedure: Upper GI endoscopy Indications: Reflux esophagitis Providers: Isa Garcia M.D., Kelby Culp, RN, Ramona, Transportation Maintenance Specialist Referring MD: Gabrielle Thompson D.O. Medicines: Monitored Anesthesia Care Complications: No immediate complications. Estimated Blood Loss: Estimated blood loss was minimal. Procedure: Pre-Anesthesia Assessment: - Prior to the procedure, a History and Physicalwas performed, and patient medications and allergieswere reviewed. The patient's tolerance of previous anesthesia was also reviewed. The risks andbenefits of the procedure and the sedation options and risks were discussed with the patient. All questions were answered, and informed consent was obtained. Prior Anticoagulants: The patient has taken noanticoagulant or antiplatelet agents except for aspirin. ASAGrade Assessment: III - A patient with severe systemic disease. After reviewing the risks and benefits,the patient was deemed in satisfactory condition to undergo the procedure. - Prior to the procedure, a History and Physicalwas performed, and patient medications, allergies and sensitivities were reviewed. The patient'stolerance of previous anesthesia was reviewed. - The risks and benefits of the procedure and the sedation options and risks were discussed with the patient. All questions were answered and informed consent was obtained. After obtaining informed consent, the endoscope was passed under direct vision. Throughout theprocedure, the patient's blood pressure, pulse, and oxygen saturations were monitored continuously. The scopewas passed under direct vision. The Endoscope was introduced through the mouth, and advanced to the second part of duodenum. The upper GI endoscopy was accomplished without difficulty. The patienttolerated the procedure well. Findings: The examined duodenum was normal. Patchy mild inflammation characterized by congestion (edema) and erythema was found in the entire examined stomach. Biopsies weretaken with a cold forceps for histology. Biopsies were taken with a cold forceps for Helicobacter pylori testing. The gastroesophageal flap valve was visualized endoscopically and classified as Hill Grade II (fold present, opens with respiration). One benign-appearing, intrinsic moderate (circumferential scarring or stenosis; an endoscope may pass) stenosis was found 38 cm from the incisors. The stenosis was traversed. The stenosis was dilated with passage of the scope. A 1 cm hiatal hernia was present. The Z-line was irregular and was found 36 to 38 cm from the incisors. Biopsies were taken with a cold forceps for histology. The exam of the esophagus was otherwise normal. Submucosal gastric lesions in the fundus and body. The largest wasabout 2 cm. Impression: - Normal examined duodenum. - Gastritis. Biopsied. - Submucosal gastric lesions in the fundus andbody. The largest was about 1 cm. - Gastroesophageal flap valve classified as HillGrade II (fold present, opens with respiration). 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 The stenosis was dilated with passage ofthe scope. - 2 cm hiatal hernia. - Z-line irregular, 36 to 38 cm from the incisors. Biopsied. Recommendation: - Patient has a contact number available for emergencies. The signs and symptoms of potential delayed complications were discussed with thepatient. Return to normal activities tomorrow. Written discharge instructions were provided to thepatient. - Resume previous diet. - Continue present medications. - Await pathology results. - Follow-up outpatient visit. Consider referal forEUS pending clinical course - The luminal evaluation suggests evidence of inflammation where the stomach and esophagus meetthat has likely developed as a consequence of chronic gastroesophageal reflux disease (GERD). There isalso inflammation in the stomach. To treat this, I recommend the followin. Dietary and lifestyle changes to reduce the riskof reflux. Please review the handout below 2. Take an acid suppression medication such as pantoprazole 40 mg twice a day. Make sure you takethe medication on an empty stomach, about 30 minutes before breakfast and dinner. This will help heal inflammation caused by acid reflux. 3. Avoid nonsteroidal anti-inflammatory drugs(NSAIDS) - examples of this category of medications to avoid include ibuprofen, advil, aleve, naproxen To treat your GastroEsophageal Reflux Disease(GERD), please try the following modifications. Lifestyle Modifications: Food Eat smaller meals Avoid fatty foods Avoid chocolate Avoid spicy foods Avoid peppermint Avoid acidic foods such as citrus and tomatoes Drink Avoid carbonated beverages Select decaffeinated beverages over caffeinated beverages Avoid alcoholic beverages Sleep Sleep with the head of the bed elevated Sleep on your left side General Maintain a healthy weight Avoid cigarette use Stay upright 2-3 hours after meals and drinks Procedure Code(s): --- Professional --- 27928, Esophagogastroduodenoscopy, flexible, transoral; with biopsy, single or multiple Diagnosis Code(s): --- Professional --- K29.70, Gastritis, unspecified, without bleeding K22.2, Esophageal obstruction K44.9, Diaphragmatic hernia without obstruction or gangrene K22.89, Other specified disease of esophagus K21.00, Gastro-esophageal reflux disease with esophagitis, without bleeding CPT copyright 2020 [employer] [employer]. All rights reserved. The codes documented in this report are preliminary and upon termite exterminator helper reviewmay be revised to meet current compliance requirements. Dr. Isa Garcia MD [facility] Isa Garcia M.D. 10/11/2024 2:43:44 PM Number of Addenda: 0 Note Initiated On: 10/11/2024 12:57 PM us Isa Garcia MD ENDOSCOPY PROCEDURES Edited Result - Final * Surgical pathology (10/11/2024 9:54 AM STUDENT LIFE COORDINATOR) Tissue (Gastric/Stomach biopsy) 10/11/2024 2:25 PM STUDENT LIFE COORDINATOR Tissue (Esophageal biopsy) 10/11/2024 2:27 PM STUDENT LIFE COORDINATOR Narrative PATHOLOGY CH - 10/16/2024 11:16 AM STUDENT LIFE COORDINATOR EPIC results best viewed via link to PDF [facility] Department of Pathology [address] [place] [id number] Note to Patients: This report may contain a detailed description of human tissue sent by a health care provider to the laboratory for pathologic evaluation. The content of this report is essential for diagnosis and may provide important critical findings. This information may be unfamiliar to patients to review without a medical professional present. It is advised that the patient review this report in the presence of a health care provider who can answer questions and explain the details. Final Report Patient Name: KRISTIN KENDALL Address: [address] [place] [address] [address], [place] [address] Gender: F : 1935 (Age: 89) Service: Gastro Location: GI Lab Hospital #: [id number] Patient Type: [facility] Taken: 10/11/2024 Received: 10/12/2024 Accessioned: 10/12/2024 Reported: 10/16/2024 Physician(s):Isa Thompson MD Diagnosis: A. Stomach, cold gastric biopsy- Benign fundic type gastric mucosa demonstrating superficial edema and congestion, nonspecific B. Esophagus, cold endoscopic biopsy- Benign squamous mucosa demonstrating mild chronic inflammation and reactive change Negative for intestinal metaplasia/Rollins's mucosa Veronica Lacey M.D. Report Electronically Reviewed and Signed Out By Veronica Lacey M.D. 10/16/2024 11:16:53 Specimen(s) Received: A: Stomach biopsy cold B: Esophagus biopsy cold Microscopic Description: Microscopic examination corroborates the diagnosis. Clinical History: Dysphagia, unspecified type Gross Description: The specimen is submitted in two formalin containers labeled KRISTIN KENDALL . A. The first container is labeled stomach biopsy . It is 3 fragments of benitez tissue measuring 1 mm . All in A. B. The second container is labeled esophagus . It is 1 fragment of benitez tissue measuring 1 mm. All in B. T.A. Isai Morales, P.A./Maynor Ruiz M.D. REPORT IMAGES AND SCANNED DOCUMENTS, IF INCLUDED, ONLY VIEWABLE IN PDF VERSION OF REPORT The performance characteristics of some immunohistochemical stains, fluorescence in-situ hybridization tests and immunophenotyping by flow cytometry cited in this report (if any) were determined by the Surgical Pathology Department at [facility] as part of an ongoing water quality assistant program and in compliance with federally mandated regulations drawn from the Clinical Laboratory Improvement Act of 1988 (CLIA '88). Some of these tests rely on the use of analyte specific reagents and are subject to specific labeling requirements by the US Food and Drug Administration. Such diagnostic tests may only be performed in a facility that is certified by the Department of Health and Human Services as a high complexity laboratory under CLIA '88. The FDA has determined that such clearance or approval is not necessary. This test is used for clinical purposes. It should not be regarded as investigational or for research. Nevertheless, federal rules concerning the medical use of analyte specific reagents require that the following disclaimer be attached to the report: This test was developed and its performance characteristics determined by the Surgical Pathology Department [facility]. It has not been cleared or approved by the U. S. Food and Drug Administration. Note for decalcified specimens: This assay has not been validated on decalcified tissues. Results should be interpreted with caution given the possibility of false negativity on decalcified specimens us Isa Garcia MD LAB PATHOLOGY ORDERABLES [facility] Result PATHOLOGY [address] [place] [address] * CT Chest WO Contrast (08/06/2024 10:17 AM STUDENT LIFE COORDINATOR) Anatomical Region Laterality Modality Body N/A Computed Tomogra phy 08/06/2024 11:1 0 AM STUDENT LIFE COORDINATOR Impressions 08/06/2024 11:10 AM STUDENT LIFE COORDINATOR 1. RIGHT-SIDED BIPOLAR PACEMAKER IN PLACE. 2. CORONARY ARTERY DISEASE AND AORTIC ATHEROSCLEROSIS. 3. ELEVATION OF THE RIGHT HEMIDIAPHRAGM. 4. THE RIGHT UPPER LOBE PULMONARY NODULE HAS RESOLVED. 5. THE SMALL RIGHT PLEURAL EFFUSION HAS RESOLVED. 6. DEGENERATIVE CHANGES IN THE LOWER THORACIC SPINE. Electronically signed by: Ishan Snow M.D. Narrative 08/06/2024 11:10 AM STUDENT LIFE COORDINATOR EXAMINATION: CT CHEST WO CONTRAST DATE: 08/06/2024 11:00 AM HISTORY: Follow-up pulmonary nodules. COMPARISON: 06/22/2024 TECHNIQUE: Transaxial computed tomographic images of the chest were obtained without intravenous contrast. Multiplanar coronal and sagittal images were reformatted. FINDINGS: There is a right-sided bipolar pacemaker with leads in the right atrium and right ventricle. The heart size is normal. There is coronary artery calcification. There are atherosclerotic changes in the thoracic aorta. No evidence of mediastinal adenopathy. There is elevation of the right hemidiaphragm. The right upper lobe pulmonary nodule seen previously has resolved. No evidence of a new pulmonary nodule. No evidence of a confluent pulmonary infiltrate or pleural effusion. Scans through the upper abdomen are unremarkable. There is degenerative disc disease in the lower thoracic spine. Procedure Note Ishan Snow MD - 08/06/2024 EXAMINATION: CT CHEST WO CONTRAST DATE: 08/06/2024 11:00 AM HISTORY: Follow-up pulmonary nodules. COMPARISON: 06/22/2024 TECHNIQUE: Transaxial computed tomographic images of the chest were obtained without intravenous contrast. Multiplanar coronal and sagittal images were reformatted. FINDINGS: There is a right-sided bipolar pacemaker with leads in the right atrium and right ventricle. The heart size is normal. There is coronary artery calcification. There are atherosclerotic changes in the thoracic aorta. No evidence of mediastinal adenopathy. There is elevation of the right hemidiaphragm. The right upper lobe pulmonary nodule seen previously has resolved. No evidence of a new pulmonary nodule. No evidence of a confluent pulmonary infiltrate or pleural effusion. Scans through the upper abdomen are unremarkable. There is degenerative disc disease in the lower thoracic spine. IMPRESSION: 1. RIGHT-SIDED BIPOLAR PACEMAKER IN PLACE. 2. CORONARY ARTERY DISEASE AND AORTIC ATHEROSCLEROSIS. 3. ELEVATION OF THE RIGHT HEMIDIAPHRAGM. 4. THE RIGHT UPPER LOBE PULMONARY NODULE HAS RESOLVED. 5. THE SMALL RIGHT PLEURAL EFFUSION HAS RESOLVED. 6. DEGENERATIVE CHANGES IN THE LOWER THORACIC SPINE. Electronically signed by: Ishan Snow M.D. Genaro Boo MD IM CT PROCEDURES Final Result * eGFR (07/19/2024 2:40 AM STUDENT LIFE COORDINATOR) eGFR 84 >=60 mL/min/1. 73 m2 Comment: Interpretive Data Reference Interval Normal >/= 90 mL/min/1.73m2 Mildly decreased* 60 - 89 mL/min/1.73m2 Mildly to moderately decreased 45 - 59 mL/min/1.73m2 Moderately to severely decreased 30 - 44 mL/min/1.73m2 Severely decreased 15 - 29 mL/min/1.73m2 Kidney Failure < 15 mL/min/1.73m2 *Relative to young adult level Estimated glomerular filtration rate is determined by the 2020 CKD-EPI equation recommended by the [employer] (A Unifying Approach to GFR Estimation: Recommendations of the NKF-ASK Task Force on Reassessing the Inclusion of Race in Diagnosing Kidney Disease, JASN 2020). The CKD-EPI equation should not be used for patients with unstable renal function and has not been validated in children and those over 70. Current interpretive data was last reviewed 2021. Blood 07/19/2024 2:40 AM STUDENT LIFE COORDINATOR 07/19/2024 2:50 AM STUDENT LIFE COORDINATOR Wu Lopez DO LAB BLOOD ORDERABLES Mikala ibarra Result [facility] [address] [address] Department [place] [address] * (ABNORMAL) CBC without differential (07/19/2024 2:40 AM STUDENT LIFE COORDINATOR) WBC 6.3 3.8 - 9.9 K/cumm Hgb 11.5(L) 11.9 - 15.5 g/dL [facility] Hct 35.6 35.6 - 45.5 % [facility] 243 150 - 400 K/cumm [facility] MPV 9.0(L) 9.1 - 12.3 fL [facility] RBC 3.82(L) 3.90 - 5.20 M/cumm [facility] MCV 93.2 81.3 - 96.4 fL [facility] MCH 30.1 27.1 - 33.3 pg [facility] MCHC 32.3 32.3 - 35.7 g/dL [facility] RDW CV 14.4 11.1 - 14.9 % [facility] RDW SD 49.1(H) 35.7 - 48.1 fL [facility] NRBC abs 0.00 0.00 - 0.01 K/cumm [facility] Blood 07/19/2024 2:40 AM STUDENT LIFE COORDINATOR 07/19/2024 2:49 AM STUDENT LIFE COORDINATOR [facility] B[facility] Mikala l Result Performing Organization Address [facility] Co de Phone Number [facility] [address] [address] [place] [address] * Basic metabolic panel (07/19/2024 2:40 AM STUDENT LIFE COORDINATOR) [facility] Sodium 139 135 - 145 mmol/L Potassium, pl 3.7 3.3 - 4.9 mmol/L [facility] Chloride 97 97 - 110 mmol/L [facility] CO2 32 22 - 32 mmol/L [facility] Anion gap 10 2 - 15 mmol/L [facility] BUN 16 6 - 25 mg/dL [facility] Creatinine 0.64 0.60 - 1.10 mg/dL [facility] Glucose 123 70 - 199 mg/dL [facility] Comment: Interpretive Data Fasting glucose >/= 126 mg/dl is diagnostic for diabetes. Fasting is defined as no caloric intake for at least 8 hours. Fasting glucose between 100 mg/dl to 125 mg/dl is diagnostic of prediabetes. In a patient with classic symptoms of hyperglycemia or hyperglycemic crisis, a random glucose >/= 200 mg/dl is diagnostic for diabetes. In the absence of unequivocal hyperglycemia, results should be confirmed by repeat testing. The classification and Diagnosis of Diabetes Diabetes Care 2021; 46: S19-S40. Current interpretive data was last revised 2022. Calcium 9.1 8.5 - 10.3 mg/dL [facility] Blood 07/19/2024 2:40 AM STUDENT LIFE COORDINATOR 07/19/2024 2:50 AM STUDENT LIFE COORDINATOR Wu Lopez DO LAB BLOOD ORDERABLES Mikala l Result Performing Organization Address [facility]/ZIP Co de Phone Number [facility] [address] [address] [place] [address] * eGFR (07/18/2024 1:44 AM STUDENT LIFE COORDINATOR) [facility] eGFR 84 >=60 mL/min/1. 73 m2 Comment: Interpretive Data Reference Interval Normal >/= 90 mL/min/1.73m2 Mildly decreased* 60 - 89 mL/min/1.73m2 Mildly to moderately decreased 45 - 59 mL/min/1.73m2 Moderately to severely decreased 30 - 44 mL/min/1.73m2 Severely decreased 15 - 29 mL/min/1.73m2 Kidney Failure < 15 mL/min/1.73m2 *Relative to young adult level Estimated glomerular filtration rate is determined by the 2020 CKD-EPI equation recommended by the National Kidney [employer] (A Unifying Approach to GFR Estimation: Recommendations of the NKF-ASK Task Force on Reassessing the Inclusion of Race in Diagnosing Kidney Disease, JASN 2020). The CKD-EPI equation should not be used for patients with unstable renal function and has not been validated in children and those over 70. Current interpretive data was last reviewed 2021. Blood 07/18/2024 1:44 AM STUDENT LIFE COORDINATOR 07/18/2024 2:11 AM STUDENT LIFE COORDINATOR us Wu Lopez DO LAB BLOOD ORDERABLES Mikala l Result [facility] [address] [address] Department [place] [address] * (ABNORMAL) CBC without differential (07/18/2024 1:44 AM STUDENT LIFE COORDINATOR) Pathologist [facility] WBC 6.8 3.8 - 9.9 K/cumm Hgb 11.5(L) 11.9 - 15.5 g/dL [facility] Hct 36.7 35.6 - 45.5 % [facility] Plt 198 150 - 400 K/cumm [facility] MPV 9.2 9.1 - 12.3 fL [facility] RBC 3.76(L) 3.90 - 5.20 M/cumm [facility] MCV 97.6(H) 81.3 - 96.4 fL [facility] MCH 30.6 27.1 - 33.3 pg [facility] MCHC 31.3(L) 32.3 - 35.7 g/dL [facility] CH RDW CV 14.3 11.1 - 14.9 % [facility] RDW SD 51.7(H) 35.7 - 48.1 fL [facility] NRBC abs 0.00 0.00 - 0.01 K/cumm [facility] Blood 07/18/2024 1:44 AM STUDENT LIFE COORDINATOR 07/18/2024 2:11 AM STUDENT LIFE COORDINATOR Wu Lopez DO LAB BLOOD ORDERABLES Mikala l Result Performing Organization Address [facility] Co de Phone Number [facility] [address] [address] [facility] [place] [address] * Folate (07/18/2024 1:44 AM STUDENT LIFE COORDINATOR) Pathologist [facility] Folic acid >20.0 >=5.0 ng/mL Comment:Hemolysis present. R esults may be affected. Blood 07/18/2024 1:44 AM STUDENT LIFE COORDINATOR 07/18/2024 7:01 AM STUDENT LIFE COORDINATOR Krissy Mendiola MD LAB BLOOD ORDERABLES Final Re sult Performing Organization Address [facility] Co de Phone Number [facility] [address] [address] [facility] [place] [address] * Vitamin B12 (07/18/2024 1:44 AM STUDENT LIFE COORDINATOR) Vitamin B12 459 230 - 1,250 pg/mL Blood 07/18/2024 1:44 AM STUDENT LIFE COORDINATOR 07/18/2024 7:01 AM STUDENT LIFE COORDINATOR Krissy Mendiola MD LAB BLOOD ORDERABLES Final Re sult Performing Organization Address [facility] Co de Phone Number [facility] [address] [address] [facility] [place] [address] * Basic metabolic panel (07/18/2024 1:44 AM STUDENT LIFE COORDINATOR) Sodium 136 135 - 145 mmol/L Potassium, pl 3.6 3.3 - 4.9 mmol/L [facility] Chloride 99 97 - 110 mmol/L [facility] CO2 25 22 - 32 mmol/L [facility] Anion gap 12 2 - 15 mmol/L [facility] BUN 15 6 - 25 mg/dL [facility] Creatinine 0.66 0.60 - 1.10 mg/dL [facility] Glucose 125 70 - 199 mg/dL [facility] Comment: Interpretive Data Fasting glucose >/= 126 mg/dl is diagnostic for diabetes. Fasting is defined as no caloric intake for at least 8 hours. Fasting glucose between 100 mg/dl to 125 mg/dl is diagnostic of prediabetes. In a patient with classic symptoms of hyperglycemia or hyperglycemic crisis, a random glucose >/= 200 mg/dl is diagnostic for diabetes. In the absence of unequivocal hyperglycemia, results should be confirmed by repeat testing. The classification and Diagnosis of Diabetes Diabetes Care 202; 46: S19-S40. Current interpretive data was last revised 2022. Calcium 8.6 8.5 - 10.3 mg/dL [facility] Blood 07/18/2024 1:44 AM STUDENT LIFE COORDINATOR 07/18/2024 2:11 AM STUDENT LIFE COORDINATOR Wu Lopez DO LAB BLOOD ORDERABLES Mikala ibarra Result [facility] [address] [address] Department [place] [address] from Last 3 Months Insurance [facility] Advance Directives For more information, please contact: [phone] Documents on File Type Date Recorded Patient Telecine Operator Expl anation ADVANCE DIRECTIVE 05/25/2016 12:00 AM [facility] [employer] FINANCIAL/MEDICAL * Full Code (Latest Code Status on File) Date Activated Date Inactivated Comments 07/15/2024 1:59 AM 07/19/2024 9:39 PM * Full Code Date Activated Date Inactivated Comments 07/15/2024 12:23 AM 07/15/2024 1:59 AM * Full Code Date Activated Date Inactivated Comments 06/14/2024 5:36 PM 06/27/2024 4:35 PM * Full Code Date Activated Date Inactivated Comments 06/13/2024 11:15 PM 06/14/2024 5:36 PM Care Teams Supervisor [employer] Relationship Specialty Start Date End Date Gabrielle Thompson DO PCP - General 01/29/19 Jr Landon DO Medical Oncologist/Hematologis t Hematology and Oncology 11/04/20 [place] [address] [address] [facility] [address] [place], [place] [id number] Gastroenterology 06/27/24 [place] [address] [address] [facility] [address] [place] [address] Consulting Physician Pulmonary Disease 06/27/24 Asher Grover MD [address] [place] [address] Referring Physician Cardiology 06/27/24 Phyllis López MD [address] [place] [address] Consulting Physician Cardiology 07/19/24
--- OUTSIDE RECORDS SUMMARY | 2024-10-16 19:15 | XMS_ITS | Referral Summary ---
Author Organization [facility] Tonya Kinney Extsaturnino nsion Address [address] [place] [address] [place] [address] Care Team Providers Care Occupational Therapy Asst Name Role Phone Gabrielle Thompson DO Primary Care Provider [phone] Jr Landon DO Unavailable [phone] Isa Garcia MD Unavailable [phone] Genaro Boo MD Unavailable Asher Grover MD Unavailable Phyllis López MD Unavailable [phone] Encounters Date Type Department Care Team Description 5 Results Follow-Up [facility] Gastroenterology at [facility], [place] [id number] [place] [address] [address] [address] Isa Garcia MD 5 2:14 PM DRAFTER ELECTRICAL Anesthesia Event [facility] [id number] [place] [address] Oswald Guaman MD 5 2:00 PM DRAFTER ELECTRICAL - 5 2:30 PM DRAFTER ELECTRICAL Surgery [facility] [address] [place] [address] Isa Garcia MD ESOPHAGOGASTRODUODENOSCOPY BIOPSY 5 1:10 PM DRAFTER ELECTRICAL - 5 3:25 PM DRAFTER ELECTRICAL Hospital Encounter [facility] [address] [place] [address] Isa Garcia MD Dysphagia, unspecified type Discharge Disposition: Discharge to home or self care 4 10:02 AM DRAFTER ELECTRICAL - 4 11:59 PM DRAFTER ELECTRICAL Hospital Encounter [facility] Imaging and Radiology [id number] [place] [address] Other nonspecific abnormal finding of lung field Discharge Disposition: Discharge to home or self care 4 Home Care Visit [address] [place] [address] Belinda Velasquez RN SN VIRTUAL NON OASIS DISCHARGE 4 10:02 PM DRAFTER ELECTRICAL - 4 5:33 PM DRAFTER ELECTRICAL Hospital Encounter [facility] [address] [place] [address] Andrews Dalton MD Rudomiotov, Olga, MD Burton, Jeffrey Ryan, Hypokalemia (Primary Dx); Pacemaker twiddler's syndrome, initial encounter Discharge Disposition: Discharge to SNF from Last 3 Months Allergies No known active allergies Medications apixaban (ELIQUIS) 2.5 mg tabletIndications :atrial fibrillation 04/26/2017Eliquis, po solid 2.5 mg TabletPOBIDCurrent Medication 017 Active multivitamin capsuleIndication s:Vitamin Deficiency 04/26/2017Multivitamin , po solid TabletPOdailyCurrent Medication Active acetaminophen (TYLENOL) 325 mg tabletIndications :Pain Take 2 tablets (650 mg total) by mouth every 6 (six) hours as needed for pain 30 tablet Active amLODIPine (NORVASC) 10 mg tabletIndications :hypertension [...] 1 tablet (50 mcg total) by 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 before 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 30 tablet Active loratadine (CLARITIN) [...] tablet (5 mg total) by mouth daily Active sertraline (ZOLOFT) 100 mg tablet Take [...] Esophagitis 10/11/2024 Pacemaker 07/16/2024 Moderate protein-calorie malnutrition ([facility]/H[facility]) 07/16/2024 Hypokalemia 07/15/2024 Complete heart block ([facility]) 06/20/2024 Sinus bradycardia 06/13/2024 Dysphagia 06/13/2024 CHF (congestive heart failure) ([facility]) 018 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, estrogen receptor positive 04/21/2018 Cancer Staging:Clinical stage from 04/29/2016:Stage IB(cT1c, cN1, cM0, G2, ER: Positive, TN: Positive, HER2: Negative) - Signed by Genaro Schwab MD on 04/24/2018 Hypothyroidism 12/28/2017 Arteriosclerosis of coronary artery 01/21/2017 Cardiovascular symptoms 01/21/2017 Chronic diastolic (congestive) heart failure 04/2017 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 01/21/2017 Other malaise 01/21/2017 Pain in unspecified limb 01/21/2017 Paroxysmal atrial fibrillation ([facility]) 017 Presence of coronary angioplasty implant and gra ft 01/21/2017 Primary hypertension 01/21/2017 Shortness of breath 01/21/2017 Immunizations Immunization Administration Dates Next Due Influenza, Quadrivalent, Hig h Dose, Preservative Free, Intrr 05/05/2023 Influenza, Trivalent, High D ose, Split, Preservative Free, Intramuscular 05/03/2024,05/25/2019 Influenza, Unspecified 05/24/2018,05/24/2017 Pneumococcal Conjugate Pcv20 05/03/2024 Pneumococcal Conjugate, Unspecified 04/24/2014 Social History Tobacco Use Types Packs/Day Years [...] materials from doctor or pharmacy Never 07/05/2024 [facility] Utilities Answer Date Recorded In the past [...] 07/17/2024 How often do you attend chur or taoism services? 1 to 4 times per year 07/17/2024 Do you belong to any clubs o r organizations such as samaritan groups, unions, fraternal or athletic groups, or [...] any time in the past 12 m [facility], were you homeless or living in a senior care (including now)? No 07/17/2024 Personal Safety Answer Date Recorded Have you ever been in or are you currently in a harmful physical or emotional relationship or is someone making you feel afraid or unsafe? Denies 10/11/2024 Comments No Sex and Gender Information Value Date Recorded Sex Assigned at Not on file Legal Sex Female 11:43 AM DRAFTER ELECTRICAL Gender Identity Not on file Sexual Orientation Not on file Last Filed Vital Signs Vital Sign Reading Time Taken Comments Blood Pressure 152/73 10/11/2024 3:25 PM DRAFTER ELECTRICAL Pulse 82 10/11/2024 3:25 PM DRAFTER ELECTRICAL Temperature 37.2 C (98.9 F) 07/19/2024 4:25 PM DRAFTER ELECTRICAL Respiratory Rate 15 10/11/2024 3:25 PM DRAFTER ELECTRICAL Oxygen Saturation 96% 10/11/2024 3:25 PM DRAFTER ELECTRICAL Inhaled Oxygen Concentration - - Weight 49.4 kg (109 lb) 10/11/2024 1:41 PM DRAFTER ELECTRICAL Height 144.8 cm (4' 9 ) 10/11/2024 1:41 PM DRAFTER ELECTRICAL Body Mass Index 23.59 10/11/2024 1:41 PM DRAFTER ELECTRICAL Plan of Treatment Not on file Medical Devices Implanted Type Area Farmworker Poultry Device Identifier Shelf Expiration Date Model / Serial / Lot 1Ring Regina Angio-Seal Vip 6fr Closere Device [id number] - [id number] Implanted:Qty: 1 on 06/14/2024 by [facility] [id number] / / [employer] Solia S 53cm Steroid Elute Bipolar Active Fixation Endocardial [id number] - [id number] - [id number] Implanted:Qty: 1 on 06/15/2024 by Phyllis López MD at [facility] DigilabroniInkvite [facility] 04/14/2026 [id number] / [id number] / [employer] Solia S 45cm Bipolar Active Fixation Lead Pacing Steroid Eluting [id number] - [id number] - [id number] Implanted:Qty: 1 on 06/15/2024 by Phyllis López MD at [facility] Volpit [facility] 05/14/2026 [id number] / [id number] / [employer] Pacemaker Implantable Amvia Edge Dual Chamb Rate-Responsive [id number] - [id number] - [id number] Implanted:Qty: 1 on 06/15/2024 by Phyllis López MD at [facility] [employer] 09/14/2025 [id number] / [id number] / Procedures Procedure Name Priority Date/Time Associated Diagnosis Comments ESOPHAGOGASTRODUODENOSCOPY BIOPSY 10/11/2024 2:11 PM DRAFTER ELECTRICAL Dysphagia, unspecified type EGD 10/11/2024 12:57 PM DRAFTER ELECTRICAL SURGICAL PATHOLOGY Routine 10/11/2024 9:54 AM DRAFTER ELECTRICAL Dysphagia, unspecified type CT CHEST WO CONTRAST Schedule Routine, Read Routine (OP Routine) 08/06/2024 10:17 AM DRAFTER ELECTRICAL Other nonspecific abnormal finding of lung field EGFR Routine 07/19/2024 2:40 AM DRAFTER ELECTRICAL BASIC METABOLIC PANEL Routine 07/19/2024 2:40 AM DRAFTER ELECTRICAL CBC WITHOUT DIFFERENTIAL Routine 024 2:40 AM DRAFTER ELECTRICAL FOLATE Add-On 07/18/2024 1:44 AM DRAFTER ELECTRICAL VITAMIN B12 Add-On 07/18/2024 1:44 AM DRAFTER ELECTRICAL EGFR Routine 07/18/2024 1:44 AM DRAFTER ELECTRICAL BASIC METABOLIC PANEL Routine 07/18/2024 1:44 AM DRAFTER ELECTRICAL CBC WITHOUT DIFFERENTIAL Routine 1:44 AM DRAFTER ELECTRICAL from Last 3 Months Results * EGD (10/11/2024 12:57 PM DRAFTER ELECTRICAL) Anatomical Region Laterality Modality Other Narrative Procedure Note Isa Garcia MD - 10/11/2024 12:57 PM CST [facility] Patient Name: Kristin Kendall Procedure Date: 10/11/2024 12:57 PM Date of : 1935 Admit Type: Outpatient Age: 89 Gender: Female Note Status: Finalized Attending MD: Isa Garcia M.D. Procedure Date: 10/11/2024 Procedure: Upper GI endoscopy Indications: Reflux esophagitis Providers: Isa Garcia M.D., Kelby Culp RN, Ramona, Electrical And Instrument Technician Referring MD: Gabrielle Thompson D.O. Medicines: Monitored [...] and drinks Procedure Code(s): --- Professional --- 78908, Esophagogastroduodenoscopy, flexible, transoral; with biopsy, single or multiple Diagnosis Code(s): --- Professional --- K29.70, Gastritis, unspecified, without bleeding K22.2, Esophageal obstruction K44.9, Diaphragmatic hernia without obstruction or gangrene K22.89, Other specified disease of esophagus K21.00, Gastro-esophageal reflux disease with esophagitis, without bleeding CPT copyright 2020 [employer]. All rights reserved. The codes documented in this report are preliminary and upon professional fee coder reviewmay be revised to meet current compliance requirements. Dr. Isa Garcia MD [facility] Isa Garcia M.D. 10/11/2024 2:43:44 PM Number of Addenda: 0 Note Initiated On: 10/11/2024 12:57 PM Isa Garcia MD ENDOSCOPY PROCEDURES Edited Result - Final * Surgical pathology (10/11/2024 9:54 AM DRAFTER ELECTRICAL) Tissue (Gastric/Stomach biopsy) 10/11/2024 2:25 PM DRAFTER ELECTRICAL Tissue (Esophageal biopsy) 10/11/2024 2:27 PM DRAFTER ELECTRICAL Narrative PATHOLOGY - 10/16/2024 11:16 AM DRAFTER ELECTRICAL EPIC results best viewed via link to PDF [facility] Department of Pathology [address] [place] [address] Note to Patients: This report may [...] Final Report Patient Name: KRISTIN KENDALL Address: [address] [place] [address] [address] [place], [place] [address] Gender: F : 1935 (Age: 89) Service: Gastro Location: GI Lab Hospital #: [id number] Patient Type: [facility] Taken: 10/11/2024 Received: 10/12/2024 Accessioned: 10/12/2024 Reported: [...] measuring 1 mm. All in B. T.A. Gurpreet Morales., P.A./Maynor Ruiz M.D. REPORT IMAGES AND SCANNED DOCUMENTS, IF INCLUDED, ONLY VIEWABLE IN PDF VERSION OF REPORT The performance characteristics of some immunohistochemical stains, fluorescence in-situ hybridization tests and immunophenotyping by flow cytometry cited in this report (if any) were determined by the Surgical Pathology Department at [facility] as part of an ongoing ethanol quality leader program and in compliance with federally mandated [...] characteristics determined by the Surgical Pathology Department [facility]. It has not been cleared or approved by the U. S. Food and Drug Administration. Note for decalcified specimens: This assay has not been validated on decalcified tissues. Results should be interpreted with caution given the possibility of false negativity on decalcified specimens us Isa Garcia MD LAB PATHOLOGY ORDERABLES Fi nal Result PATHOLOGY BASIL [address] [place] [address] * CT Chest WO Contrast (08/06/2024 10:17 AM DRAFTER ELECTRICAL) Anatomical Region Laterality Modality Body N/A Computed Tomogra phy 08/06/2024 11:1 0 AM DRAFTER ELECTRICAL Impressions 08/06/2024 11:10 AM DRAFTER ELECTRICAL 1. RIGHT-SIDED BIPOLAR PACEMAKER IN PLACE. 2. CORONARY ARTERY DISEASE AND AORTIC ATHEROSCLEROSIS. 3. ELEVATION OF THE RIGHT HEMIDIAPHRAGM. 4. THE RIGHT UPPER LOBE PULMONARY NODULE HAS RESOLVED. 5. THE SMALL RIGHT PLEURAL EFFUSION HAS RESOLVED. 6. DEGENERATIVE CHANGES IN THE LOWER THORACIC SPINE. Electronically signed by: Ishan Snow M.D. Narrative 08/06/2024 11:10 AM DRAFTER ELECTRICAL EXAMINATION: CT CHEST WO CONTRAST DATE: 08/06/2024 [...] by: Ishan Snow M.D. Genaro Boo MD IMG CT PROCEDURES Final Result * eGFR (07/19/2024 2:40 AM DRAFTER ELECTRICAL) eGFR 84 >=60 mL/min/1. 73 m2 Comment: [...] of Race in Diagnosing Kidney Disease, JASN 202). The CKD-EPI equation should not be used for patients with unstable renal function and has not been validated in children and those over 70. Current interpretive data was last reviewed 2021. Blood 07/19/2024 2:40 AM DRAFTER ELECTRICAL 07/19/2024 2:50 AM DRAFTER ELECTRICAL Wu Lopez DO LAB BLOOD ORDERABLES Mikala l Result Performing Organization Address [facility] Co de Phone Number YOSEPH [address] Department [place] [address] * (ABNORMAL) CBC without differential (07/19/2024 2:40 AM DRAFTER ELECTRICAL) WBC 6.3 3.8 - 9.9 K/cumm Hgb 11.5(L) 11.9 - 15.5 g/dL [facility] Hct 35.6 35.6 - 45.5 % [facility] Plt 243 150 - 400 K/cumm [facility] MPV 9.0(L) 9.1 - 12.3 fL [facility] RBC 3.82(L) 3.90 - 5.20 M/cumm [facility] MCV 93.2 81.3 - 96.4 fL [facility] MCH 30.1 27.1 - 33.3 pg [facility] MCHC 32.3 32.3 - 35.7 g/dL [facility] RDW CV 14.4 11.1 - 14.9 % [facility] RDW SD 49.1(H) 35.7 - 48.1 fL [facility] NRBC abs 0.00 0.00 - 0.01 K/cumm [facility] Blood 07/19/2024 2:40 AM DRAFTER ELECTRICAL 07/19/2024 2:49 AM DRAFTER ELECTRICAL Wu Lopez DO LAB BLOOD ORDERABLES Mikala l Result Performing Organization Address [facility] Co de Phone Number YOSEPH GRAC[address] Department [place] [address] * Basic metabolic panel (07/19/2024 2:40 AM DRAFTER ELECTRICAL) Sodium 139 135 - 145 mmol/L Potassium, pl 3.7 3.3 - 4.9 mmol/L [facility] Chloride 97 97 - 110 mmol/L [facility] CO2 32 22 - 32 mmol/L [facility] Anion gap 10 2 - 15 mmol/L [facility] BUN 16 6 - 25 mg/dL [facility] Creatinine 0.64 0.60 - 1.10 mg/dL [facility] Glucose 123 70 - 199 mg/dL [facility] Comment: Interpretive Data Fasting glucose >/= 126 [...] 2022. Calcium 9.1 8.5 - 10.3 mg/dL Y[facility]PH Blood 07/19/2024 2:40 AM DRAFTER ELECTRICAL 07/19/2024 2:50 AM DRAFTER ELECTRICAL us Wu Lpoez DO LAB BLOOD ORDERABLES Mikala ibarra Result YOSEPH [address] Department [place] [address] * eGFR (07/18/2024 1:44 AM DRAFTER ELECTRICAL) eGFR 84 >=60 mL/min/1. 73 m2 Comment: [...] last reviewed 2021. Blood 07/18/2024 1:44 AM DRAFTER ELECTRICAL 07/18/2024 2:11 AM DRAFTER ELECTRICAL [facility]OD ORDERABLES Mikala l Result Performing Organization Address [facility] Co de Phone Number YOSEPH GRAC[address] [place] [address] * (ABNORMAL) CBC without differential (07/18/2024 1:44 AM DRAFTER ELECTRICAL) WBC 6.8 3.8 - 9.9 K/cumm Hgb 11.5(L) 11.9 - 15.5 g/dL [facility] Hct 36.7 35.6 - 45.5 % [facility] Plt 198 150 - 400 K/cumm [facility] MPV 9.2 9.1 - 12.3 fL [facility] RBC 3.76(L) 3.90 - 5.20 M/cumm [facility] CH MCV 97.6(H) 81.3 - 96.4 fL [facility] CH MCH 30.6 27.1 - 33.3 pg [facility] MCHC 31.3(L) 32.3 - 35.7 g/dL [facility] RDW CV 14.3 11.1 - 14.9 % [facility] CH RDW SD 51.7(H) 35.7 - 48.1 fL [facility] NRBC abs 0.00 0.00 - 0.01 K/cumm [facility] CH Blood 07/18/2024 1:44 AM DRAFTER ELECTRICAL 07/18/2024 2:11 AM DRAFTER ELECTRICAL Wu Lopez LAB BLOOD ORDERABLES Mikala l Result Performing Organization Address City/[facility]/ZIP Co de Phone Number YOSEPH [address]AC[address] [employer] [place], [place] [id number] * Folate (07/18/2024 1:44 AM DRAFTER ELECTRICAL) Pathologist [facility] Folic acid >20.0 >=5.0 ng/mL Comment:Hemolysis present. R esults may be affected. Blood 07/18/2024 1:44 AM DRAFTER ELECTRICAL 07/18/2024 7:01 AM DRAFTER ELECTRICAL Krissy Mendiola MD LAB BLOOD ORDERABLES Final Re sult Performing Organization Address [facility] Co de Phone Number YOSEPH [address] [facility] [place] [address] * Vitamin B12 (07/18/2024 1:44 AM DRAFTER ELECTRICAL) Pathologist [facility] Vitamin B12 459 230 - 1,250 pg/mL Blood 07/18/2024 1:44 AM DRAFTER ELECTRICAL 07/18/2024 7:01 AM DRAFTER ELECTRICAL Krissy Mendiola MD LAB BLOOD ORDERABLES Final Re sult Performing Organization Address [facility] de Phone Number YOSEPH [address] [facility] [place] [address] * Basic metabolic panel (07/18/2024 1:44 AM DRAFTER ELECTRICAL) [facility] Sodium 136 135 - 145 mmol/L Potassium, pl 3.6 3.3 - 4.9 mmol/L [facility] Chloride 99 97 - 110 mmol/L [facility] CO2 25 22 - 32 mmol/L [facility] Anion gap 12 2 - 15 mmol/L [facility] BUN 15 6 - 25 mg/dL [facility] Creatinine 0.66 0.60 - 1.10 mg/dL [facility] Glucose 125 70 - 199 mg/dL [facility] Comment: Interpretive Data Fasting glucose >/= [...] 2022. 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 ADVANCE DIRECTIVE 05/25/2016 12:00 AM [facility] [place] [employer]ANCIAL/MEDICAL * Full Code (Latest Code Status [...] 11:15 PM 06/14/2024 5:36 PM Care Teams Occupational Therapy Asst Relationship Specialty Start Date End Date Gabrielle Thompson DO PCP - General 01/29/19 Jr Landon DO Medical Oncologist/Hematologis t Hematology and Oncology 11/04/20 [place] [address] [facility] [address] [place] [address] Gastroenterology 06/27/24 [place] [address] [facility] [address] [place] [address] Consulting Physician Pulmonary Disease 06/27/24 Asher Grover MD [address] [place] [address] Referring Physician Cardiology 06/27/24 Phyllis López MD [address] [place] [address] Consulting Physician Cardiology 07/19/24
--- OUTSIDE RECORDS SUMMARY | 2024-10-16 19:15 | XMS_ITS | Clinical Summary ---
Author Organization [facility] Address [facility] [place] [address] Care Team Providers Care Pellet Post Inspector Name Role Phone Unavailable Primary Care Provider Unavailabl e Social History Tobacco Use Types Packs/Day Years Used Date Smoking Tobacco: Never Assessed Comments Unknown Sex and Gender Information Value Date Recorded Sex Assigned at Not on file Legal Sex Female 6:23 PM CDT Gender Identity Not on file Sexual Orientation Not on file Plan of Treatment Health Maintenance Due Date Last Done Comments Zoster Vaccines (1 of 2) 1985 RSV Immunization or 60+ Years (1 - 1-dose 75+ series) 2010 DTaP, Tdap and Td Vaccines (2 - Td or Tdap) 08/15/2021 08/15/2011 COVID-19 Vaccine ( season) 2024 Influenza Adult (#1) 2024 05/25/2019, 06/26/2018, 06/14/2017, Additional history exists Pneumococcal Vaccine: 65+ Years Completed 09/18/2015, 08/15/2006 Meningococcal B Vaccine Aged Out No l onger eligible based on patient's age to complete this topic Meningococcal Vaccine Aged Out No dayanara yusuf eligible based on patient's age to complete this topic RSV Immunizations Under 20 Months Aged Out No longer eligible based on patient's age to complete this topic
[2024-10-16 19:16] VITALS: BP 156/97; PULSE 83; RESP 20; TEMP 36.7; O2SAT 98
--- NOTE | 2024-10-16 19:49 | ECG_ITS ---
Test Date: 2024-10-16 20:08:37 Measurements Intervals [place] Rate: 75 P: -23 HI: 196 QRS: 116 QRSD: 146 T: -51 QT: 426 QTc: 478 Interpretive Statements ELECTRONIC ATRIAL PACEMAKER ELECTRONIC VENTRICULAR PACEMAKER No previous ECG available for comparison Electronically Signed On 10-17-2024 13:14:19 MANUAL TESTER by Sundeep Terrell M.D.
--- OUTSIDE RECORDS SUMMARY | 2024-10-16 19:51 | XMS_ITS ---
Author Organization [facility] Tonya Shore nsion Address [address] [place] [address] [place] [address] Care Team Providers Care Battery Plate Remover Name Role Phone Gabrielle Thompson DO Primary Care Provider [phone] Jr Landon DO Unavailable [phone] Isa Garcia MD Unavailable Genaro Boo MD Unavailable [phone] Asher Grover MD Unavailable Phyllis López MD Unavailable [phone] Active Problems Problem Noted Date Diagnosed Date Esophagitis 10/11/2024 Pacemaker 07/16/2024 Moderate protein-calorie malnutrition (CMS/HCC) 07/16/2024 Hypokalemia 07/15/2024 Complete heart block (CMS/HCC) 06/20/2024 Sinus bradycardia 06/13/2024 Dysphagia 06/13/2024 CHF (congestive heart failure) (CMS/HCC) 018 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
--- OUTSIDE RECORDS SUMMARY | 2024-10-16 19:51 | XMS_ITS | Clinical Summary ---
Author Organization [facility] Address [facility] [place] [address] Care Team Providers Care Chief Of Planning Name Role Phone Unavailable Primary Care Provider [...]
--- OUTSIDE RECORDS SUMMARY | 2024-10-16 19:51 | XMS_ITS | Clinical Summary ---
Author Organization [facility] Tonya Shore nsion Address [address] [place] [address] [place] [address] Care Team Providers Care Disaster Recovery Consultant Name Role Phone Gabrielle Thompson DO Primary Care Provider [phone] Jr Landon DO Unavailable [phone] Isa Garcia MD Unavailable [phone] Genaro Boo MD Unavailable [phone] Asher Grover MD Unavailable Phyllis López MD Unavailable [phone] Allergies No known active allergies Medications apixaban [...] 1 tablet (50 mcg total) by mouth green promotions specialist before breakfast 30 tablet Active loratadine (CLARITIN) [...] 04/29/2016:Stage IB(cT1c, cN1, cM0, G2, ER: Positive, KS: Positive, HER2: Negative) - Signed by Genaro [...] Department Care Team Description 5 Results Follow-Up [facility] Gastroenterology at [address] [address] Isa Garcia MD 5 2:14 PM JAVA DEVELOPER CONSULTANT Anesthesia Event [facility] [address] [place] [address] Oswald Guaman MD 5 2:00 PM JAVA DEVELOPER CONSULTANT - 5 2:30 PM JAVA DEVELOPER CONSULTANT Surgery [facility] [address] [place] [address] Isa Garcia MD ESOPHAGOGASTRODUODENOSCOPY BIOPSY 5 1:10 PM JAVA DEVELOPER CONSULTANT - 5 3:25 PM JAVA DEVELOPER CONSULTANT Hospital Encounter [facility] [address] [place] [address] Isa Garcia MD Dysphagia, unspecified type Discharge Disposition: Discharge to home or self care 4 10:02 AM JAVA DEVELOPER CONSULTANT - 4 11:59 PM JAVA DEVELOPER CONSULTANT Hospital Encounter [facility] Imaging and Radiology [address] [place] [address] Other nonspecific abnormal finding of lung field Discharge Disposition: Discharge to home or self care 4 Home Care Visit [address] [address] [address] [place] [address] Belinda Velasquez RN SN VIRTUAL NON OASIS DISCHARGE 4 10:02 PM JAVA DEVELOPER CONSULTANT - 4 5:33 PM JAVA DEVELOPER CONSULTANT Hospital Encounter [address] [address] Andrews Dalton MD Rudomiotov, Olga, MD Burton, [...] materials from doctor or pharmacy Never 07/05/2024 [facility] Utilities Answer Date Recorded In the past 12 months has th e [employer], gas, oil, or water company threatened to [...] often do you attend chur ch or shinto services? 1 to 4 times per year 07/17/2024 Do you belong to any clubs o r organizations such as spiritism groups, unions, fraternal or athletic groups, or [...] any time in the past 12 m [facility], were you homeless or living in a longterm (including now)? No 07/17/2024 Personal Safety Answer Date Recorded Have you ever been in or are you currently in a harmful physical or emotional relationship or is someone making you feel afraid or unsafe? Denies 10/11/2024 Comments No Sex and Gender Information Value Date Recorded Sex Assigned at Not on file Legal Sex Female 11:43 AM JAVA DEVELOPER CONSULTANT Gender Identity Not on file Sexual Orientation Not on file Obstetrics History Para Term AB IAB SAB Ectopic Multiple Livin g Live Births 3 Date Outcome GA Total Labor Labor/2nd/3rd Weight Sex Type Anes PTL Melissa A1 A5 Name Clin Last Filed Vital Signs Vital Sign Reading Time Taken Comments Blood Pressure 152/73 10/11/2024 3:25 PM JAVA DEVELOPER CONSULTANT Pulse 82 10/11/2024 3:25 PM JAVA DEVELOPER CONSULTANT Temperature 37.2 C (98.9 F) 07/19/2024 4:25 PM JAVA DEVELOPER CONSULTANT Respiratory Rate 15 10/11/2024 3:25 PM JAVA DEVELOPER CONSULTANT Oxygen Saturation 96% 10/11/2024 3:25 PM JAVA DEVELOPER CONSULTANT Inhaled Oxygen Concentration - - Weight 49.4 kg (109 lb) 10/11/2024 1:41 PM JAVA DEVELOPER CONSULTANT Height 144.8 cm (4' 9 ) 10/11/2024 1:41 PM JAVA DEVELOPER CONSULTANT Body Mass Index 23.59 10/11/2024 1:41 PM JAVA DEVELOPER CONSULTANT Plan of Treatment Health Maintenance Due Date Last Done Comments Depression Screening 1935 DTaP/Tdap/Td Vaccine (1 - Tdap) 1946 Hepatitis B Screening 1953 Zoster Vaccine (1 of 2) 1985 Well Visit 65+ 2000 Fall Risk Assessment 10/11/2025 10/11/2024 Influenza Vaccine Completed 05/03/2024, , 05/25/2019, Additional history exists Pneumococcal vaccine 65+ Completed 05/03/2024, 04/15 Medical Devices Implanted Type Area Stretching Machine Operator Device Identifier Shelf Expiration Date Model / Serial / Lot TouchMail Angio-Seal Vip 6fr Closere Device [id number] - [id number] Implanted:Qty: 1 on 06/14/2024 [id number] / [employer] Solia S 53cm Steroid Elute Bipolar Active Fixation Endocardial [id number] - [id number] - [id number] Implanted:Qty: 1 on 06/15/2024 by Phyllis López MD at [facility] [employer] 04/14/2026 [id number] / [id number] / [employer] Solia S 45cm Bipolar Active Fixation Lead Pacing Steroid Eluting [id number] - [id number] - [id number] Implanted:Qty: 1 on 06/15/2024 by Phyllis López MD at [facility] [employer] 05/14/2026 [id number] / [id number] / [employer] Pacemaker Implantable Amvia Edge Dual Chamb Rate-Responsive [id number] - [id number] - [id number] Implanted:Qty: 1 on 06/15/2024 by Phyllis López MD at [facility] WANTED Technologiesroni[employer]rystal IS [facility] 09/14/2025 [id number] / [id number] / Procedures Procedure Name Priority Date/Time Associated Diagnosis Comments ESOPHAGOGASTRODUODENOSCOPY BIOPSY 10/11/2024 2:11 PM JAVA DEVELOPER CONSULTANT Dysphagia, unspecified type EGD 10/11/2024 12:57 PM JAVA DEVELOPER CONSULTANT SURGICAL PATHOLOGY Routine 10/11/2024 9:54 AM JAVA DEVELOPER CONSULTANT Dysphagia, unspecified type CT CHEST WO CONTRAST Schedule Routine, Read Routine (OP Routine) 08/06/2024 10:17 AM JAVA DEVELOPER CONSULTANT Other nonspecific abnormal finding of lung field EGFR Routine 07/19/2024 2:40 AM JAVA DEVELOPER CONSULTANT BASIC METABOLIC PANEL Routine 07/19/2024 2:40 AM JAVA DEVELOPER CONSULTANT CBC WITHOUT DIFFERENTIAL Routine 024 2:40 AM JAVA DEVELOPER CONSULTANT FOLATE Add-On 07/18/2024 1:44 AM JAVA DEVELOPER CONSULTANT VITAMIN B12 Add-On 07/18/2024 1:44 AM JAVA DEVELOPER CONSULTANT EGFR Routine 07/18/2024 1:44 AM JAVA DEVELOPER CONSULTANT BASIC METABOLIC PANEL Routine 07/18/2024 1:44 AM JAVA DEVELOPER CONSULTANT CBC WITHOUT DIFFERENTIAL Routine 024 1:44 AM JAVA DEVELOPER CONSULTANT from Last 3 Months Results * EGD (10/11/2024 12:57 PM JAVA DEVELOPER CONSULTANT) Anatomical Region Laterality Modality Other Narrative Procedure Note Isa Garcia MD - 10/11/2024 12:57 PM CST [facility] Patient Name: Kristin Kendall Procedure Date: 10/11/2024 12:57 PM Date of : 1935 Admit Type: Outpatient Age: 89 Gender: Female Note Status: Finalized Attending MD: Isa Garcia M.D. Procedure Date: 10/11/2024 Procedure: Upper GI endoscopy Indications: Reflux esophagitis Providers: Isa Garcia M.D., Kelby Culp, RN, Ramona, Compatibility Test Engineer Referring MD: Gabrielle Thompson D.O. Medicines: Monitored [...] and drinks Procedure Code(s): --- Professional --- 89913, Esophagogastroduodenoscopy, flexible, transoral; with biopsy, single or multiple Diagnosis Code(s): --- Professional --- K29.70, Gastritis, unspecified, without bleeding K22.2, Esophageal obstruction K44.9, Diaphragmatic hernia without obstruction or gangrene K22.89, Other specified disease of esophagus K21.00, Gastro-esophageal reflux disease with esophagitis, without bleeding CPT copyright 2020 [employer]. All rights reserved. The codes documented in this report are preliminary and upon special shopper reviewmay be revised to meet current compliance requirements. Dr. Isa Garcia MD [facility] Isa Garcia M.D. 10/11/2024 2:43:44 PM Number of Addenda: 0 Note Initiated On: 10/11/2024 12:57 PM us Isa Garcia MD ENDOSCOPY PROCEDURES Edited Result - Final * Surgical pathology (10/11/2024 9:54 AM JAVA DEVELOPER CONSULTANT) Tissue (Gastric/Stomach biopsy) 10/11/2024 2:25 PM JAVA DEVELOPER CONSULTANT Tissue (Esophageal biopsy) 10/11/2024 2:27 PM JAVA DEVELOPER CONSULTANT Narrative PATHOLOGY CH - 10/16/2024 11:16 AM JAVA DEVELOPER CONSULTANT EPIC results best viewed via link to PDF [facility] Department of Pathology [address] [place] [address] Note to Patients: This report may [...] Final Report Patient Name: KRISTIN KENDALL Address: [address] [place] [address] [address], [place] [address] Gender: F : 1935 (Age: 89) Service: Gastro Location: GI Lab Hospital #: [id number] Patient Type: [facility] Taken: 10/11/2024 Received: 10/12/2024 Accessioned: 10/12/2024 Reported: [...] determined by the Surgical Pathology Department at [facility] as part of an ongoing quality lead program and in compliance with federally mandated [...] characteristics determined by the Surgical Pathology Department [facility]. It has not been cleared or approved by the U. S. Food and Drug Administration. Note for decalcified specimens: This assay has not been validated on decalcified tissues. Results should be interpreted with caution given the possibility of false negativity on decalcified specimens us Isa Garcia MD LAB PATHOLOGY ORDERABLES [facility] Result PATHOLOGY [address] [place] [address] * CT Chest WO Contrast (08/06/2024 10:17 AM JAVA DEVELOPER CONSULTANT) Anatomical Region Laterality Modality Body N/A Computed Tomogra phy 08/06/2024 11:1 0 AM JAVA DEVELOPER CONSULTANT Impressions 08/06/2024 11:10 AM JAVA DEVELOPER CONSULTANT 1. RIGHT-SIDED BIPOLAR PACEMAKER IN PLACE. 2. CORONARY ARTERY DISEASE AND AORTIC ATHEROSCLEROSIS. 3. ELEVATION OF THE RIGHT HEMIDIAPHRAGM. 4. THE RIGHT UPPER LOBE PULMONARY NODULE HAS RESOLVED. 5. THE SMALL RIGHT PLEURAL EFFUSION HAS RESOLVED. 6. DEGENERATIVE CHANGES IN THE LOWER THORACIC SPINE. Electronically signed by: Ishan Snow M.D. Narrative 08/06/2024 11:10 AM JAVA DEVELOPER CONSULTANT EXAMINATION: CT CHEST WO CONTRAST DATE: 08/06/2024 [...] Final Result * eGFR (07/19/2024 2:40 AM JAVA DEVELOPER CONSULTANT) eGFR 84 >=60 mL/min/1. 73 m2 Comment: [...] last reviewed 2021. Blood 07/19/2024 2:40 AM JAVA DEVELOPER CONSULTANT 07/19/2024 2:50 AM JAVA DEVELOPER CONSULTANT Wu Lopez DO LAB BLOOD ORDERABLES Mikala ibarra Result [facility] [address] Department [place] [address] * (ABNORMAL) CBC without differential (07/19/2024 2:40 AM JAVA DEVELOPER CONSULTANT) WBC 6.3 3.8 - 9.9 K/cumm Hgb 11.5(L) 11.9 - 15.5 g/dL [facility] Hct 35.6 35.6 - 45.5 % [facility] Plt 243 150 - 400 K/cumm [facility] MPV 9.0(L) 9.1 - 12.3 fL [facility] RBC 3.82(L) 3.90 - 5.20 M/cumm [facility] MCV 93.2 81.3 - 96.4 fL [facility] MCH 30.1 27.1 - 33.3 pg [facility] MCHC 32.3 32.3 - 35.7 g/dL [facility] RDW CV 14.4 11.1 - 14.9 % [facility] RDW SD 49.1(H) 35.7 - 48.1 fL [facility] NRBC abs 0.00 0.00 - 0.01 K/cumm [facility] Blood 07/19/2024 2:40 AM JAVA DEVELOPER CONSULTANT 07/19/2024 2:49 AM JAVA DEVELOPER CONSULTANT [facility]LOOD ORDERABLES Mikala l Result Performing Organization Address [facility] Co de Phone Number [facility] [address] [address] [place] [address] * Basic metabolic panel (07/19/2024 2:40 AM JAVA DEVELOPER CONSULTANT) [facility] Sodium 139 135 - 145 mmol/L Potassium, pl 3.7 3.3 - 4.9 mmol/L [facility] Chloride 97 97 - 110 mmol/L [facility] CO2 32 22 - 32 mmol/L [facility] Anion gap 10 2 - 15 mmol/L [facility] BUN 16 6 - 25 mg/dL [facility] Creatinine 0.64 0.60 - 1.10 mg/dL [facility] Glucose 123 70 - 199 mg/dL [facility] Comment: Interpretive Data Fasting glucose >/= 126 [...] 2022. Calcium 9.1 8.5 - 10.3 mg/dL [facility] Blood 07/19/2024 2:40 AM JAVA DEVELOPER CONSULTANT 07/19/2024 2:50 AM JAVA DEVELOPER CONSULTANT Wu Lopez DO LAB BLOOD ORDERABLES Mikala l Result Performing Organization Address [facility]/ZIP Co de Phone Number [facility] [address] [address] [place] [address] * eGFR (07/18/2024 1:44 AM JAVA DEVELOPER CONSULTANT) [facility] eGFR 84 >=60 mL/min/1. 73 m2 Comment: [...] last reviewed 2021. Blood 07/18/2024 1:44 AM JAVA DEVELOPER CONSULTANT 07/18/2024 2:11 AM JAVA DEVELOPER CONSULTANT us Wu Lopez DO LAB BLOOD ORDERABLES Mikala l Result [facility] [address] [address] [place] [address] * (ABNORMAL) CBC without differential (07/18/2024 1:44 AM JAVA DEVELOPER CONSULTANT) Pathologist [facility] WBC 6.8 3.8 - 9.9 K/cumm Hgb 11.5(L) 11.9 - 15.5 g/dL [facility] Hct 36.7 35.6 - 45.5 % [facility] Plt 198 150 - 400 K/cumm [facility] MPV 9.2 9.1 - 12.3 fL [facility] RBC 3.76(L) 3.90 - 5.20 M/cumm [facility] MCV 97.6(H) 81.3 - 96.4 fL [facility] MCH 30.6 27.1 - 33.3 pg [facility] MCHC 31.3(L) 32.3 - 35.7 g/dL [facility] CH RDW CV 14.3 11.1 - 14.9 % [facility] RDW SD 51.7(H) 35.7 - 48.1 fL [facility] NRBC abs 0.00 0.00 - 0.01 K/cumm [facility] Blood 07/18/2024 1:44 AM JAVA DEVELOPER CONSULTANT 07/18/2024 2:11 AM JAVA DEVELOPER CONSULTANT Wu Lopez DO LAB BLOOD ORDERABLES Mikala l Result Performing Organization Address [facility] Co de Phone Number [facility] [address] [address] [facility] [place] [address] * Folate (07/18/2024 1:44 AM JAVA DEVELOPER CONSULTANT) Pathologist [facility] Folic acid >20.0 >=5.0 ng/mL Comment:Hemolysis present. R esults may be affected. Blood 07/18/2024 1:44 AM JAVA DEVELOPER CONSULTANT 07/18/2024 7:01 AM JAVA DEVELOPER CONSULTANT Krissy Mendiola MD LAB BLOOD ORDERABLES Final Re sult Performing Organization Address [facility] Co de Phone Number [facility] [address] [address] [facility] [place] [address] * Vitamin B12 (07/18/2024 1:44 AM JAVA DEVELOPER CONSULTANT) Vitamin B12 459 230 - 1,250 pg/mL Blood 07/18/2024 1:44 AM JAVA DEVELOPER CONSULTANT 07/18/2024 7:01 AM JAVA DEVELOPER CONSULTANT Krissy Mendiola MD LAB BLOOD ORDERABLES Final Re sult Performing Organization Address [facility] Co de Phone Number [facility] [address] [address] [facility] [place] [address] * Basic metabolic panel (07/18/2024 1:44 AM JAVA DEVELOPER CONSULTANT) Sodium 136 135 - 145 mmol/L Potassium, pl 3.6 3.3 - 4.9 mmol/L [facility] Chloride 99 97 - 110 mmol/L [facility] CO2 25 22 - 32 mmol/L [facility] Anion gap 12 2 - 15 mmol/L [facility] BUN 15 6 - 25 mg/dL [facility] Creatinine 0.66 0.60 - 1.10 mg/dL [facility] Glucose 125 70 - 199 mg/dL [facility] Comment: Interpretive Data Fasting glucose >/= 126 [...] 2022. Calcium 8.6 8.5 - 10.3 mg/dL [facility] Blood 07/18/2024 1:44 AM JAVA DEVELOPER CONSULTANT 07/18/2024 2:11 AM JAVA DEVELOPER CONSULTANT Wu Lopez DO LAB BLOOD ORDERABLES Mikala ibarra Result [facility] [address] [place] [address] from Last 3 Months Insurance [facility] [facility] Advance Directives For more information, please contact: [phone] Documents on File Type Date Recorded Patient Load Tallier Expl anation ADVANCE DIRECTIVE 05/25/2016 12:00 AM [facility] OF LOAN CONSULTANT FINANCIAL/MEDICAL * Full Code (Latest Code Status [...] 11:15 PM 06/14/2024 5:36 PM Care Teams Disaster Recovery Consultant Relationship Specialty Start Date End Date Gabrielle Thompson DO PCP - General 01/29/19 Jr Landon DO Medical Oncologist/Hematologis t Hematology and Oncology 11/04/20 [place] [address] [address] [facility] [address] [place], [place] [id number] Gastroenterology 06/27/24 [place] [address] [address] [facility] [address] [place] [address] Consulting Physician Pulmonary Disease 06/27/24 Asher Grover MD [address] [place] [address] Referring Physician Cardiology 06/27/24 Phyllis López MD [address] [place] [address] Consulting Physician Cardiology 07/19/24
--- OUTSIDE RECORDS SUMMARY | 2024-10-16 19:51 | XMS_ITS | Encounter Summary ---
Author Organization [facility] Healthcare Address [address] [place] [address] Care Team Providers Care Ice Handler Name Role Phone Gabrielle Thompson DO Primary Care Provider [phone] Jr Landon DO Unavailable [phone] Isa Garcia MD Unavailable [phone] Genaro Boo MD Unavailable [phone] Asher Grover MD Unavailable Phyllis López MD Unavailable [phone] Encounter Details Date Type Department Care Team (Late st Contact Info) Description 10/16/2024 Results Follow-Up [facility] Gastroenterology at [address] [place] [address] Isa Garcia MD [address] [place] [address] Social History Tobacco Use Types Packs/Day [...] materials from doctor or pharmacy Never 07/05/2024 [facility] Utilities Answer Date Recorded In the past [...] often do you attend chur ch or zoroastrian services? 1 to 4 times per year 07/17/2024 Do you belong to any clubs o r organizations such as zoroastrianism groups, unions, fraternal or athletic groups, or [...] time in the past 12 m [facility], were you homeless or living in a intermediate (including now)? No 07/17/2024 Personal Safety Answer Date Recorded Have you ever been in or are you currently in a harmful physical or emotional relationship or is someone making you feel afraid or unsafe? Denies 10/11/2024 Comments No Sex and Gender Information Value Date Recorded Sex Assigned at Not on file Legal Sex Female 11:43 AM GARMENT SEWING MACHINE OPERATOR Gender Identity Not on file Sexual Orientation Not on file documented as of this encounter Plan of Treatment Not on file documented as of this encounter Visit Diagnoses Not on filedocumented in this encounter Care Teams Ice Handler Relationship Specialty Start Date End Date Gabrielle Thompson DO PCP - General 01/29/19 Jr Landon DO Medical Oncologist/Hematologis t Hematology and Oncology 11/04/20 [place] [address] [address] [facility] [address] [place] [address] Gastroenterology 06/27/24 [place] [address] [address] [facility] [address] [place] [address] Consulting Physician Pulmonary Disease 06/27/24 Asher Grover MD [address] [place] [address] Referring Physician Cardiology 06/27/24 Phyllis López MD [address] [place] [address] Consulting Physician Cardiology 07/19/24 documented as of this encounter
--- OUTSIDE RECORDS SUMMARY | 2024-10-16 19:51 | XMS_ITS | Referral Summary ---
Author Organization [facility] Tonya Kinney Extsaturnino nsion Address [address] [place] [address] [place] [address] Care Team Providers Care Head Of Biology Name Role Phone Gabrielle Thompson DO Primary Care Provider [phone] Jr Landon DO Unavailable [phone] Isa Garcia MD Unavailable Genaro Boo MD Unavailable [phone] Asher rGover MD Unavailable Phyllis López MD Unavailable [phone] Encounters Date Type Department Care Team Description 5 Results Follow-Up [facility] Gastroenterology at [facility] [address] [place] [address] [address] [address] Isa Garcia MD 5 2:14 PM MUSIC PROMOTER Anesthesia Event [facility] GI Lab [address] [place] [address] Oswald Guaman MD 5 2:00 PM MUSIC PROMOTER - 5 2:30 PM MUSIC PROMOTER Surgery [facility] Lab [address] [place] [address] Isa Garcia MD ESOPHAGOGASTRODUODENOSCOPY BIOPSY 5 1:10 PM MUSIC PROMOTER - 5 3:25 PM MUSIC PROMOTER Hospital Encounter [facility] GI Lab [address] [place] [address] Isa Garcia MD Dysphagia, unspecified type Discharge Disposition: Discharge to home or self care 4 10:02 AM MUSIC PROMOTER - 4 11:59 PM MUSIC PROMOTER Hospital Encounter [facility] Imaging and Radiology [id number] [place] [address] Other nonspecific abnormal finding of lung field Discharge Disposition: Discharge to home or self care 4 Home Care Visit [address] [place] [address] Belinda Velasquez RN SN VIRTUAL NON OASIS DISCHARGE 4 10:02 PM MUSIC PROMOTER - 4 5:33 PM MUSIC PROMOTER Hospital Encounter [facility] [address] [place] [address] Andrews Dalton MD Rudomiotov, Olga, MD Burton, [...] 1 tablet (50 mcg total) by mouth early childhood assistant before breakfast 30 tablet Active loratadine (CLARITIN) [...] Esophagitis 10/11/2024 Pacemaker 07/16/2024 Moderate protein-calorie malnutrition ([facility]) 07/16/2024 Hypokalemia 07/15/2024 Complete heart block ([facility]) 06/20/2024 Sinus bradycardia 06/13/2024 Dysphagia 06/13/2024 CHF (congestive heart failure) ([facility]) 018 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, estrogen receptor positive 04/21/2018 Cancer Staging:Clinical stage from 04/29/2016:Stage IB(cT1c, cN1, cM0, G2, ER: Positive, [place]: Positive, HER2: Negative) - Signed by Genaro Schwab MD on 04/24/2018 Hypothyroidism 12/28/2017 Arteriosclerosis of coronary artery 01/21/2017 Cardiovascular symptoms 01/21/2017 Chronic diastolic (congestive) heart failure 04/2017 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 1 to 4 times per year 07/17/2024 Do you belong to any clubs o r organizations such as restorationism groups, unions, fraternal or athletic groups, or [...] any time in the past 12 m [facility], were you homeless or living in [...] on file Legal Sex Female 11:43 AM MUSIC PROMOTER Gender Identity Not on file Sexual Orientation Not on file Last Filed Vital Signs Vital Sign Reading Time Taken Comments Blood Pressure 152/73 10/11/2024 3:25 PM MUSIC PROMOTER Pulse 82 10/11/2024 3:25 PM MUSIC PROMOTER Temperature 37.2 C (98.9 F) 07/19/2024 4:25 PM MUSIC PROMOTER Respiratory Rate 15 10/11/2024 3:25 PM MUSIC PROMOTER Oxygen Saturation 96% 10/11/2024 3:25 PM MUSIC PROMOTER Inhaled Oxygen Concentration - - Weight 49.4 kg (109 lb) 10/11/2024 1:41 PM MUSIC PROMOTER Height 144.8 cm (4' 9 ) 10/11/2024 1:41 PM MUSIC PROMOTER Body Mass Index 23.59 10/11/2024 1:41 PM MUSIC PROMOTER Plan of Treatment Not on file Medical Devices Implanted Type Area Activity Specialist Device Identifier Shelf Expiration Date Model / Serial / Lot The Veteran Asset Regina Angio-Seal Vip 6fr Closere Device [id number] - [id number] Implanted:Qty: 1 on 06/14/2024 [facility] [id number] / / [employer] Solia S 53cm Steroid Elute Bipolar Active Fixation Endocardial [id number] - [id number] - [id number] Implanted:Qty: 1 on 06/15/2024 by Phyllis López MD at [facility] [employer] [facility] 04/14/2026 [id number] / [id number] / [employer] Solia S 45cm Bipolar Active Fixation Lead Pacing Steroid Eluting [id number] - [id number] - [id number] Implanted:Qty: 1 on 06/15/2024 by Phyllis López MD at [facility] [employer] [facility] 05/14/2026 [id number] / [id number] / [employer] Pacemaker Implantable Amvia Edge Dual Chamb Rate-Responsive [id number] - [id number] - [id number] Implanted:Qty: 1 on 06/15/2024 by Phyllis López MD at [facility] [employer] 09/14/2025 [id number] / [id number] / Procedures Procedure Name Priority Date/Time Associated Diagnosis Comments ESOPHAGOGASTRODUODENOSCOPY BIOPSY 10/11/2024 2:11 PM MUSIC PROMOTER Dysphagia, unspecified type EGD 10/11/2024 12:57 PM MUSIC PROMOTER SURGICAL PATHOLOGY Routine 10/11/2024 9:54 AM MUSIC PROMOTER Dysphagia, unspecified type CT CHEST WO CONTRAST Schedule Routine, Read Routine (OP Routine) 08/06/2024 10:17 AM MUSIC PROMOTER Other nonspecific abnormal finding of lung field EGFR Routine 07/19/2024 2:40 AM MUSIC PROMOTER BASIC METABOLIC PANEL Routine 07/19/2024 2:40 AM MUSIC PROMOTER CBC WITHOUT DIFFERENTIAL Routine 024 2:40 AM MUSIC PROMOTER FOLATE Add-On 07/18/2024 1:44 AM MUSIC PROMOTER VITAMIN B12 Add-On 07/18/2024 1:44 AM MUSIC PROMOTER EGFR Routine 07/18/2024 1:44 AM MUSIC PROMOTER BASIC METABOLIC PANEL Routine 07/18/2024 1:44 AM MUSIC PROMOTER CBC WITHOUT DIFFERENTIAL Routine 1:44 AM MUSIC PROMOTER from Last 3 Months Results * EGD (10/11/2024 12:57 PM MUSIC PROMOTER) Anatomical Region Laterality Modality Other Narrative Procedure Note Isa Garcia MD - 10/11/2024 12:57 PM CST [facility] Endoscopy Lab Patient Name: Kristin Kendall Procedure Date: 10/11/2024 12:57 PM Date of : 1935 Admit Type: Outpatient Age: 89 Gender: Female Note Status: Finalized Attending MD: Isa Garcia M.D. Procedure Date: 10/11/2024 Procedure: Upper GI endoscopy Indications: Reflux esophagitis Providers: Isa Garcia M.D., Kelby Culp RN, Ramona, Trauma Counsellor Referring MD: Gabrielle Thompson D.O. Medicines: Monitored [...] and drinks Procedure Code(s): --- Professional --- 56440, Esophagogastroduodenoscopy, flexible, transoral; with biopsy, single or multiple Diagnosis Code(s): --- Professional --- K29.70, Gastritis, unspecified, without bleeding K22.2, Esophageal obstruction K44.9, Diaphragmatic hernia without obstruction or gangrene K22.89, Other specified disease of esophagus K21.00, Gastro-esophageal reflux disease with esophagitis, without bleeding CPT copyright 2020 [employer]. All rights reserved. The codes documented in this report are preliminary and upon site manager reviewmay be revised to meet current compliance requirements. Dr. Isa Garcia MD [facility] Isa Garcia M.D. 10/11/2024 2:43:44 PM Number of Addenda: 0 Note Initiated On: 10/11/2024 12:57 PM Isa Garcia MD ENDOSCOPY PROCEDURES Edited Result - Final * Surgical pathology (10/11/2024 9:54 AM MUSIC PROMOTER) Tissue (Gastric/Stomach biopsy) 10/11/2024 2:25 PM MUSIC PROMOTER Tissue (Esophageal biopsy) 10/11/2024 2:27 PM MUSIC PROMOTER Narrative PATHOLOGY - 10/16/2024 11:16 AM MUSIC PROMOTER EPIC results best viewed via link to PDF [facility] Department of Pathology [address] [place] [address] Note to Patients: This report may [...] Final Report Patient Name: KRISTIN KENDALL Address: [address] [place] [address] [address], [place] [address] Gender: F : 1935 (Age: 89) Service: Gastro Location: GI Lab Hospital #: [id number] Patient Type: [facility] Taken: 10/11/2024 Received: 10/12/2024 Accessioned: 10/12/2024 [...] determined by the Surgical Pathology Department at [facility] as part of an ongoing senior quality manager program and in compliance with federally mandated [...] determined by the Surgical Pathology Department [facility]. It has not been cleared or approved by the U. S. Food and Drug Administration. Note for decalcified specimens: This assay has not been validated on decalcified tissues. Results should be interpreted with caution given the possibility of false negativity on decalcified specimens us Isa Garcia MD LAB PATHOLOGY ORDERABLES Fi nal Result PATHOLOGY BASIL [address] [place] [address] * CT Chest WO Contrast (08/06/2024 10:17 AM MUSIC PROMOTER) Anatomical Region Laterality Modality Body N/A Computed Tomogra phy 08/06/2024 11:1 0 AM MUSIC PROMOTER Impressions 08/06/2024 11:10 AM MUSIC PROMOTER 1. RIGHT-SIDED BIPOLAR PACEMAKER IN PLACE. 2. CORONARY ARTERY DISEASE AND AORTIC ATHEROSCLEROSIS. 3. ELEVATION OF THE RIGHT HEMIDIAPHRAGM. 4. THE RIGHT UPPER LOBE PULMONARY NODULE HAS RESOLVED. 5. THE SMALL RIGHT PLEURAL EFFUSION HAS RESOLVED. 6. DEGENERATIVE CHANGES IN THE LOWER THORACIC SPINE. Electronically signed by: Ishan Snow M.D. Narrative 08/06/2024 11:10 AM MUSIC PROMOTER EXAMINATION: CT CHEST WO CONTRAST DATE: 08/06/2024 [...] Final Result * eGFR (07/19/2024 2:40 AM MUSIC PROMOTER) eGFR 84 >=60 mL/min/1. 73 m2 Comment: [...] last reviewed 2021. Blood 07/19/2024 2:40 AM MUSIC PROMOTER 07/19/2024 2:50 AM MUSIC PROMOTER Wu Lopez DO LAB BLOOD ORDERABLES Mikala l Result Performing Organization Address [facility] Co de Phone Number YOSEPH [address] Department [place] [address] * (ABNORMAL) CBC without differential (07/19/2024 2:40 AM MUSIC PROMOTER) WBC 6.3 3.8 - 9.9 K/cumm Hgb [...] K/cumm [facility] Blood 07/19/2024 2:40 AM MUSIC PROMOTER 07/19/2024 2:49 AM MUSIC PROMOTER Wu Lopez DO LAB BLOOD ORDERABLES Mikala l Result Performing Organization Address [facility] Co de Phone Number YOSEPH GRACIA [address] Department [place] [address] * Basic metabolic panel (07/19/2024 2:40 AM MUSIC PROMOTER) Sodium 139 135 - 145 mmol/L Potassium, [...] 10.3 mg/dL YOSEPH Blood 07/19/2024 2:40 AM MUSIC PROMOTER 07/19/2024 2:50 AM MUSIC PROMOTER us Wu Lopez DO LAB BLOOD ORDERABLES Mikala ibarra Result YOSEPH [address] [place] [address] * eGFR (07/18/2024 1:44 AM MUSIC PROMOTER) eGFR 84 >=60 mL/min/1. 73 m2 Comment: [...] last reviewed 2021. Blood 07/18/2024 1:44 AM MUSIC PROMOTER 07/18/2024 2:11 AM MUSIC PROMOTER [facility]OD ORDERABLES Mikala l Result Performing Organization Address [facility] Co de Phone Number YOSEPH GRACIA [address] [place] [address] * (ABNORMAL) CBC without differential (07/18/2024 1:44 AM MUSIC PROMOTER) WBC 6.8 3.8 - 9.9 K/cumm Hgb 11.5(L) 11.9 - 15.5 g/dL [facility] Hct 36.7 35.6 - 45.5 % [facility] Plt 198 150 - 400 K/cumm [facility] MPV 9.2 9.1 - 12.3 fL [facility] RBC 3.76(L) 3.90 - 5.20 M/cumm [facility] MCV 97.6(H) 81.3 - 96.4 fL [facility] MCH 30.6 27.1 - 33.3 pg [facility] MCHC 31.3(L) 32.3 - 35.7 g/dL [facility] RDW CV 14.3 11.1 - 14.9 % [facility] CH RDW SD 51.7(H) 35.7 - 48.1 fL [facility] NRBC abs 0.00 0.00 - 0.01 K/cumm [facility] Blood 07/18/2024 1:44 AM MUSIC PROMOTER 07/18/2024 2:11 AM MUSIC PROMOTER Wu Lopez LAB BLOOD ORDERABLES Mikala l Result Performing Organization Address City/[facility]/ZIP Co de Phone Number YOSEPH GRACIA [address] [employer] [place], [place] [id number] * Folate (07/18/2024 1:44 AM MUSIC PROMOTER) Pathologist [facility] Folic acid >20.0 >=5.0 ng/mL Comment:Hemolysis present. R esults may be affected. Blood 07/18/2024 1:44 AM MUSIC PROMOTER 07/18/2024 7:01 AM MUSIC PROMOTER Krissy Mendiola MD LAB BLOOD ORDERABLES Final Re sult Performing Organization Address City/[facility] Co de Phone Number YOSEPH [address] [facility] [place] [address] * Vitamin B12 (07/18/2024 1:44 AM MUSIC PROMOTER) Pathologist [facility] Vitamin B12 459 230 - 1,250 pg/mL Blood 07/18/2024 1:44 AM MUSIC PROMOTER 07/18/2024 7:01 AM MUSIC PROMOTER Krissy Mendiola MD LAB BLOOD ORDERABLES Final Re sult Performing Organization Address [facility] de Phone Number YOSEPH [address] [facility] [place] [address] * Basic metabolic panel (07/18/2024 1:44 AM MUSIC PROMOTER) [facility] Sodium 136 135 - 145 mmol/L Potassium, pl 3.6 3.3 - 4.9 mmol/L [facility] Chloride 99 97 - 110 mmol/L [facility] CO2 25 22 - 32 mmol/L [facility] Anion gap 12 2 - 15 mmol/L [facility] BUN 15 6 - 25 mg/dL [facility] Creatinine 0.66 0.60 - 1.10 mg/dL [facility] Glucose 125 70 - 199 mg/dL [facility] Comment: Interpretive Data Fasting glucose >/= 126 [...] 2022. Calcium 8.6 8.5 - 10.3 mg/dL [facility] Blood 07/18/2024 1:44 AM MUSIC PROMOTER 07/18/2024 2:11 AM MUSIC PROMOTER us Wu Lopez DO LAB BLOOD ORDERABLES [place] [address] Department [place] [address] from Last 3 Months Insurance [employer] Advance Directives For more information, please contact: [phone] Documents on File Type Date Recorded Patient Wax Machine Operator Expl anation ADVANCE DIRECTIVE 05/25/2016 12:00 AM [facility] ER OF ESTATE PLANNING [employer]/MEDICAL * Full Code (Latest Code Status [...] 11:15 PM 06/14/2024 5:36 PM Care Teams Head Of Biology Relationship Specialty Start Date End Date Gabrielle Thompson DO PCP - General 01/29/19 Jr Landon DO Medical Oncologist/Hematologis t Hematology and Oncology 11/04/20 [place] [address] [facility] [address] [place] [address] Gastroenterology 06/27/24 [place] [address] [address] [facility] [address] [place] [address] Consulting Physician Pulmonary Disease 06/27/24 Asher Grover MD [address] [place] [address] Referring Physician Cardiology 06/27/24 Phyllis López MD [address] [place] [address] Consulting Physician Cardiology 07/19/24
--- OUTSIDE RECORDS SUMMARY | 2024-10-16 19:51 | XMS_ITS | CONTINUITY OF CARE DOCUMENT ---
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 Name Role Phone Hayes JAIN, Phyllis Unavailable JARROD DOANDREIA A Unavailable JARROD DO, ANDREIA A Unavailable [phone] PROBLEMS Condition Status Date Provider Notes S/P [...] Tachy diandra syndrome active Lucretia Ventimig hayde [employer] Cardiology examination active Phyllis raymundo MD ENCOUNTERS Date Type Provider Location Encounter Diag nosis - In-person encounter Office Visit Quoc Quintana MD [facility] - In-person encounter Office Visit Phyllis López MD [facility] - In-person encounter Office Visit Phyllis López MD [facility] Cardiology examination - In-person encounter Office Visit Quoc Quintana MD [facility] 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 Office Visit Quoc Quintana MD [facility] - In-person encounter Office Visit Quoc Quintana MD [facility] Cardiac murmur - In-person encounter Office Visit Quoc Quintana MD [facility] - In-person encounter Office Visit Quoc Quintana MD [facility] - In-person encounter Office Visit Quoc Quintana MD [facility] - In-person encounter Office Visit Quoc Quintana MD [facility] - In-person encounter Office Visit Quoc Quintana MD [facility] - In-person encounter Office Visit Quoc Quintana MD [facility] - In-person encounter Office Visit Quoc Quintana MD [facility] - In-person encounter Office Visit Quoc Quintana MD [facility] - In-person encounter Office Visit Quoc Quintana MD [facility] - In-person encounter Office Visit Quoc Quintana MD [facility] Hypothyroidism - In-person encounter Office Visit Quoc Quintana MD [facility] Nerve pain-Sciatica - In-person encounter Office Visit Quoc Quintana MD [facility] - In-person encounter Office Visit Quoc Quintana MD [facility] Other symptoms involving cardiovascular systemAtrial fib paroxysmalShortness of breathAMI subendocardialAMI inferior wallStent ? Drug ElutingHTN essentialDeconditioningCHF - diastolicCHF - systolicLeg painCAD VITAL SIGNS Date Observation Value Provider blood pressure, cuff size regular Ke [facility]isa [facility] blood pressure, diastolic 70 mm[Hg] Tom [facility], systolic 110 mm[Hg] Abhijeet Lombardo oxygen saturation, oximetry 90 % Ruth Richmond pulse rate 65 /min Ruth [facility] height E&M 60 [in_i] Ruth [facility] Body Mass Index (Ratio) 20.70 kg/m2 Leno [...] Hoa Valentin weight E&M 160 [lb_av] Hoa Dougherty respiratory rate E&M 12 /min Hoa Dougherty height E&M 60 [in_i] Hoa Dougherty blood pressure, cuff size regular An surjit [...] Houser blood pressure, systolic 138 mm[Hg] Lucila Houesr pulse rate 70 /min Anny Houser oxygen [...] blood pressure, cuff size regular Ke rri [facility] blood pressure, diastolic 77 mm[Hg] Ke rri [facility] blood pressure, systolic 123 mm[Hg] Abhijeet Lombardo oxygen saturation, oximetry 93 % Ruth Lombardo respiratory rate E&M 14 /min Ruth G [facility] pulse rate 65 /min Ruth [facility] weight E&M 111 [lb_av] Ruth Ceciliae [facility] height E&M 60 [in_i] Ruth Jacquelinenenfe [facility] Body Mass Index (Ratio) 22.65 kg/m2 Angi [...] Adriana joshi height E&M 60 [in_i] Adriana [facility] Body Mass Index (Ratio) 25.00 kg/m2 [place] pulse rate 66 /min [facility] oxygen saturation, oximetry 94 % Manuel [facility] blood pressure, diastolic 70 mm[Hg] Ronny cotter [facility] blood pressure, systolic 110 mm[Hg] Elaine navarro [facility] respiratory rate E&M 16 /min [facility] weight E&M 128 [lb_av] [facility] height E&M 60 [in_i] [facility] Body Mass Index (Ratio) 25.23 kg/m2 Mckinleysaturnino [...] CAPSULE BY MOUTH ONCE DAILY Lucretia Ventimiglia [employer] Ocuvite with Lutein 1,000 unit-200 mg-60 unit-2 [...] completed once a day - Lucretia Chicas [employer] #30, 30 days supply, Prescribed by SONIA [...] history of marijuana use no Lucretia Ventimiglia [facility] drug use no Lucretia Ventimig hayde [facility] alcohol use no Lucretia Ventimig hayde [facility] smoking status Never smoker Lucretia Ventim iglia [facility] smoking status Never smoker Anny Houser [...] ludwin social history E&M S moking History: aDle stinson has never smoked. Quoc Quintana MD [...] MD smoking status Never smoker Adriana Aranashakila number of grandchildren Quoc Quintana MD social history reviewed E&M [...] Policy type / Coverage type Monty [employer] party ID DARRICK HMO Other [id number] ADVANCE DIRECTIVES Name Date DISCUSSED - NO DECISION MADE TREATMENT PLAN Date Name Performer [id number],C, A SA/Plavix 12 months. replaced iwth eliquis and plavix April 25, 2020 N ow off of Plavix remains on Eliquis alone. had MARY RCA 3.0/15 xience 2016 LVF 60% on 02/28 echo. October 28, 2021 R ecent echo showed mornal EF with MAC June 01, 2023 c heck echo Quoc Quintana MD [id number],C, D ES to RCA ostium Quoc Quintana MD [id number],C, A SA/Plavix 12 months. replaced iwth eliquis [...] of ischemia or scar. Quoc Quintana MD [id number],C, S tress test 11/03/22 CONCLUSIONS: 1 . [...] new bleeding on eliquis Quoc Quintana MD [id number],C,2 /6 systolic RSB p rior echo with mAC and AO valve sclerosis r echeck echo Quoc Quintana MD [id number],S,4 8 hr monitor to evaluate for Afib s he has been on eliquis no bleeding Quoc Quintana MD [id number],C, R ecommended advancing physical activity at home including walking. May 05, 2022 D oes not want to do cardiac rehab November 17, 2022 S till does not want to do cardiac rehab Quoc Quintana MD [id number],C, o n eliquis 2.5mg BID for afib. No bleeding issues. Quoc Quintana MD [id number],C, C onclusions: 1 . Normal left ventricular [...] Mild aortic wall calcificatio Quoc Quintana MD [id number],C, A SA/Plavix 12 months. replaced iwth eliquis [...] of ischemia or scar. Quoc Quintana MD [id number],Caryn P andres BP: 123/77 (05/05/2022) Her updated medication list for this problem includes: Furosemide 20 Mg Tablet (Furosemide) ..... Once a day Lisinopril 5 Mg Tablet (Lisinopril) ..... 1 tablet once a day Carvedilol 12.5 Mg Tablet (Carvedilol) ..... Twice a day Quoc Quintana MD [id number],C,S tress test 11/03/22 CONCLUSIONS: 1 . Normal [...] o bleeding on Eliquis Quoc Quintana MD [id number],S, R ecommended advancing physical activity at home including walking. May 05, 2022 D oes not want to do cardiac rehab Quoc Quintana MD [id number],C, o n eliquis 2.5mg BID for afib. No bleeding issues. Quoc Quintana MD [id number],C, C onclusions: 1 . Normal left ventricular [...] Mild aortic wall calcificatio Quoc Quintana MD [id number],S, A SA/Plavix 12 months. replaced iwth eliquis [...] arrange for Lexiscan stress Quoc Quintana MD [id number],C, B P today: 123/77 P rior BP: 118/79 (10/28/2021) Her updated medication list for this problem includes: Furosemide 20 Mg Tablet (Furosemide) ..... Once a day Lisinopril 5 Mg Tablet (Lisinopril) ..... 1 tablet once a day Carvedilol 12.5 Mg Tablet (Carvedilol) ..... Twice a day Quoc Quintana MD [id number],C, C AD MARY RCA. DAPT 12 months [...] o bleeding on Eliquis Quoc Quintana MD [id number],S, A SA/Plavix 12 months. replaced iwth eliquis and plavix April 25, 2020 N ow off of Plavix remains on Eliquis alone. had MARY RCA 3.0/15 xience 2016October 28, 2021 N o sxs of angina, normal echo EF, doubt she has sxs associated with CAD. Quoc Quintana MD [id number],C, B P today: 118/79 P rior BP: 142/82 (04/24/2021) Her updated medication list for this problem includes: Furosemide 20 Mg Tablet (Furosemide) ..... Once a day Lisinopril 5 Mg Tablet (Lisinopril) ..... 1 tablet once a day Carvedilol 12.5 Mg Tablet (Carvedilol) ..... Twice a day Quoc Quintana MD [id number],C, o n eliquis for afib. No bleeding issues. Quoc Quintana MD [id number],C, A SA/Plavix 12 months. replaced iwth eliquis and plavix April 25, 2020 N ow off of Plavix remains on Eliquis alone. had MARY RCA 3.0/15 xience 2016 LVF 60% on 02/28 echo. October 28, 2021 R ecent echo showed mornal EF with MAC Quoc Quintana MD [id number],S, C AD MARY RCA. DAPT 12 months [...] for hx of Afib Quoc Quintana MD [id number],S, o n eliquis for afib. No bleeding issues. Quoc Quintana MD [id number],C, D ES to RCA ostium Quoc Quintana MD [id number],C, A SA/Plavix 12 months. replaced iwth eliquis and plavix April 25, 2020 N ow off of Plavix remains on Eliquis alone. had MARY RCA 3.0/15 xience 2016 LVF 60% on 02/28 echo. Quoc Quintana MD [id number],C, B P today: 142/82 P rior BP: 120/70 (10/24/2020) Quoc Quintana MD [id number],C, A SA/Plavix 12 months. replaced iwth eliquis [...] 2:1 HB with afib tachybrady Lucretia Ventimiglia [employer] WORK[employer] Cardiology:hold core g d iastolic chf H er updated medication list for this problem includes: Furosemide 20 Mg Tablet (Furosemide) ..... Once a day Lisinopril 5 Mg Tablet (Lisinopril) ..... 1 tablet once a day Carvedilol 12.5 Mg Tablet (Carvedilol) ..... Twice a day Lucretiamel Bocanegraalbinomarv [facility] Cardiology: A SA/Plavix 12 months. replaced [...] with no evidence of ischemia or scar. [facility] Cardiology:12/02/16 D ES to RCA ostium Successful stenting of the ostial RCA with a 3.0 x 15 minutes Xience stent. [facility] Cardiology:SHE IS ON BB AND ELQIUSI [...] fraction is m easured at 60 %. [facility] Cardiology:diastolic chf H er updated medication [...] ..... Twice a day Quoc Quintana MD Cardiology:Stress te st 11/03/22 CONCLUSIONS: [...] 05, 2022 N o bleeding on Eliquis Qouc Quintana MD Cardiology: R ecommended advancing physical [...] 1 week. Orders: 9 9204 MOD Complex ([id number]) M obile Cardiac Tele (CPT-[id number]) [place] Cardiology:Started on Tx per PCP [...] rmine if wall motion has improved after FL, with echo and assess valvular disease. Currently [...] minute walk test Ambulatory Oximetry DLCO - 91473 FRC - 35811 FVC - 44421 Complete Echo Mobile Cardiac Tele MUGA (LVEF) Complete Echo HISTORY OF PROCEDURES Procedure Date Procedure Name Provider Procedure Notes S tatus EKG Quoc Quintana MD completed EKG Phyllis López MD complet ed EKG Phyllis López MD complet ed Complex e/m visit add on Quoc Quintana MD completed EKG Quoc Quinatna MD completed EKG Quoc Quintana MD completed EKG Quoc Quintana MD completed EKG Quoc Quintana MD completed EKG Quoc Quintana MD completed EKG Quoc Quintana MD completed EKG Quoc Quintana MD completed EKG Quoc Quintana MD completed EKG Quoc Quintana MD completed FVC / MVV with bronchodilator and 6min walk/titration Quoc Quintana MD completed BLOOD COUNT HEMOGLOBIN Quoc Quintana MD completed FRC - 13648 Quoc Quintana MD completed SpO2 w/o 6min walk/titration Quoc Quintana MD completed DLCO - 88654 Quoc Quintana MD completed Event Monitor Quoc Quintana MD completed SNOMED-CT: [id number] Current Medications Documented Quoc Quintana MD completed EKG Quoc Quintana MD completed SNOMED-CT: 325675210 108655 Current Medications Documented Quoc Quintana MD completed Ultra Tag RBCs, 1 unit Quoc Quintana MD completed JOSE Kingsley MD completed EKG Quoc Quintana MD completed SNOMED-CT: [id number] Current Medications Documented Quoc Quintana MD completed
[2024-10-16] MEDS: ONDANSETRON INJ 4 MG/2 ML VIAL IV PUSH (20:05)
--- NOTE | 2024-10-16 20:05 | ED_ITS ---
HPI - Nausea/Vomiting/Diarrhea General Chief complaint: Nausea/Vomiting/Diarrhea Stated complaint: vomiting and diarrhea Time Seen by Provider: 10/16/24 19:28 History of Present Illness HPI Narrative: 89-year-old female with history of CAD, s/p stent placement approximately 7 years ago, AFib on Eliquis, s/p breast cancer presents to emergency department with son at bedside for N/V/D for 1 day. Patient is reporting generalized fatigue and weakness, productive cough, headache, exertional shortness of breath. She denies chest pain or lower extremity edema. Patient recently underwent an outpatient EGD last week at [facility] for esophageal dilation. She states the procedure was uncomplicated. Denies recent sick contacts, fever, dysuria or hematuria. Denies recent antibiotic use, recent hospitalizations or travel. Patient does endorse a history of CHF and currently takes Lasix. 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 Related Data Home Medications ?Medication ?Instructions ?Recorded ?Confirmed ?Last Taken ?Type apixaban 5 mg tablet (Eliquis) 2.5 mg PO BID 09/06/22 10/17/24 09/21/22 History carvedilol 12.5 mg tablet 12.5 mg PO BID 09/06/22 10/17/24 09/24/22 History gabapentin 300 mg tablet 600 mg PO BID 09/06/22 10/17/24 09/24/22 History geriatric multivitamin-min 1 tablet PO DAILY 09/06/22 10/17/24 Unknown History lisinopril 5 mg tablet 2.5 mg PO QAM 09/06/22 10/17/24 Unknown History lovastatin 40 mg tablet 40 mg PO HS 09/06/22 10/17/24 Unknown History sertraline 50 mg tablet 100 mg PO HS 09/06/22 10/17/24 Unknown History tramadol 50 mg tablet 50 mg PO Q12-24H PRN Pain 09/06/22 10/17/24 09/24/22 History vit C,D-Au-jnrunm-lutein-zeaxan 60 1 cap PO HS 09/06/22 10/17/24 Unknown History mg-13.5 mg-15 mg-2 mg-6 mg capsule (Ocuvite Lutein and Zeaxanthin) aspirin 81 mg tablet,delayed 81 mg PO DAILY 10/17/24 10/17/24 Unknown History release (Adult Aspirin Regimen) buspirone 5 mg tablet 5 mg PO BID 10/17/24 10/17/24 Unknown History cholecalciferol (vitamin D3) 50 50 mcg PO DAILY 10/17/24 10/17/24 Unknown History mcg (2,000 unit) capsule (D3-2000) docusate sodium 100 mg capsule 100 mg PO HS PRN constipation 10/17/24 10/17/24 Unknown History (Colace) furosemide 20 mg tablet 20 mg PO BID 10/17/24 10/17/24 Unknown History levothyroxine 50 mcg tablet 50 mcg PO DAILY 10/17/24 10/17/24 Unknown History loratadine 10 mg tablet 10 mg PO DAILY 10/17/24 10/17/24 Unknown History omeprazole 20 mg capsule,delayed 20 mg PO DAILY PRN heartburn 10/17/24 10/17/24 Unknown History release pantoprazole 40 mg tablet,delayed 40 mg PO DAILY 10/17/24 10/17/24 Unknown History release potassium chloride 10 mEq 10 meq PO DAILY 10/17/24 10/17/24 Unknown History tablet,extended release Allergies Allergy/AdvReac Type Severity Reaction Status Date / Time No Known Allergies Allergy Verified 10/16/24 19:20 Review of Systems 2 Review of Systems: All systems reviewed & are unremarkable except as noted in HPI and below PMFSH Past Medical History Medical History Breast cancer CAD (coronary artery disease) Chronic a-fib Social History Social History Smoking status: Never smoker Alcohol intake: never Substance use: never Do You Feel Safe in your Home?: Yes Lack of Transportation: No Lack of Food: Never True Current Housing: I Do Not Have Housing Concerned About Future Housing: No Difficulty Paying Gas/Electric Bills: No Difficulty Paying for Meds: No Currently Unemployed: No Education: Trade/Vocational Certificate Difficulty w/ Childcare or Family Care: No Living arrangements: alone Spiritual care concerns: No Exam 2 Narrative: GENERAL: Well-appearing, well-nourished, and in no acute distress. HEAD: Normocephalic, atraumatic. EYES: PERRLA and EOMI. ENT: Nares clear, no rhinorrhea or epistaxis. Mucous membranes moist. NECK: Supple. CHEST: Clear to auscultation. No respiratory distress. HEART: Regular rate and rhythm. No murmur heard. Normal peripheral pulses. ABDOMEN: Soft, nontender, nondistended, normal active bowel sounds. No rebound, guarding or rigidity. No CVA tenderness EXTREMITIES: Normal range of motion. No edema. SKIN: Warm, dry, no rash. NEURO: No focal deficits. Alert and oriented x3. Moving all extremities spontaneously Course Vital Signs Vital signs: Vital Signs Temperature 36.7 C 10/16/24 19:16 Pulse Rate 83 10/16/24 19:16 Respiratory Rate 20 10/16/24 19:16 Blood Pressure 156/97 H 10/16/24 19:16 Pulse Oximetry 98 10/16/24 19:16 Oxygen Delivery Room Air 10/16/24 19:16 Temperature 36.4 C L 10/17/24 05:40 Pulse Rate 73 10/17/24 05:40 Respiratory Rate 16 10/17/24 05:40 Blood Pressure 116/66 10/17/24 05:40 Pulse Oximetry 98 10/17/24 05:40 Oxygen Delivery Nasal Cannula 10/17/24 03:05 Oxygen Flow Rate 2 10/17/24 03:05 MDM - Nausea/Vomiting/Diarrhea MDM Narrative Medical decision making narrative: 89-year-old female presents emergency department for 1 day of N/V/D. Also reporting some exertional dyspnea, cough and generalized fatigue. See HPI for further history. Vitals with elevated blood pressure, otherwise unremarkable. Patient is afebrile nontoxic appearing and resting comfortably in exam bed. Exam is significant for dry mucous membranes. Will give her a small bolus of fluids given history of CHF and monitor. Labs without leukocytosis or anemia. Chemistries are remarkable for elevated alk-phos to 174, remainder LFTs are normal. Lipase within normal limits. Viral swabs are negative. Chest x-ray shows elevation of the right hemidiaphragm with adjacent compressive atelectasis, no focal infiltrate or effusion. EKG shows electronic atrial pacemaker an electronic ventricular pacemaker, no prior for comparison. Troponin is within normal limits. BNP elevated 2230, no prior for comparison. UA with positive nitrates, 1+ leuk esterase, 3 5 RBCs, 4+ bacteria. Urine culture pending. Patient received a small fluid bolus and headache cocktail with resolution of headache and improvement in symptoms. She is tolerating p.o. intake. Suspect majority of her presentation is secondary to viral gastroenteritis. Patient was placed on 2 L nasal cannula after desatting to the upper 80s while asleep. She has no formal diagnosis of BEBETO but I do suspect this. Patient's ambulatory pulse ox without O2 reveal desaturation to 90% with increased difficulty breathing. Patient would like to stay in the hospital. She was given a dose of lasix in the ED for possible mild pulmonary edema as source of hypoxia and exertional dyspnea. Discussed with hospitalist, Dr. Frank, who agrees to admission. Advised to CT chest for evaluation for possible occult pneumonia. Agrees to hold off on treatment for urine until urine culture results given patient is asymptomatic. Lab Data 10/16/24 20:03 10/16/24 20:03 Labs: Lab Results 10/16/24 10/16/24 Range/Units 20:03 21:39 WBC 9.2 (4.5-10.0) K/mm3 RBC 4.99 (4.2-5.4) M/mm3 Hgb 14.6 (12.0-15.0) g/dL Hct 44.6 (37.0-47.0) % MCV 89.4 (80-100) fl MCH 29.3 (26-34) pg MCHC 32.7 (32-36) g/dl RDW 14.4 (11.5-14.5) % Plt Count 235 (150-375) k/mm3 MPV 9.4 (7.4-10.4) fl Immature Gran % (Auto) 0.2 (0-0.5) % Neut % (Auto) 89.4 H (45.5-73.1) % Lymph % (Auto) 5.8 L (18.3-44.2) % Harlan % (Auto) 4.4 (2.6-8.5) % Eos % (Auto) 0.0 (0-4.4) % Baso % (Auto) 0.2 (0.2-1.2) % Lymph # (Auto) 0.53 L (0.9-3.2) K/mm3 Harlan # (Auto) 0.4 (0.1-0.6) K/mm3 Eos # (Auto) 0.0 (0-0.3) K/mm3 Baso # (Auto) 0.0 (0.0-0.1) K/mm3 Abs Immat Gran (auto) 0.02 (0.00-0.031) K/mm3 Absolute Neuts (auto) 8.2 H (1.3-6.7) K/mm3 Absolute Nucleated RBC 0.000 (0.0-0.012) K/mm3 Nucleated RBC % 0.0 (0.0-0.2) % PT 14.8 H (11.1-14.7) Seconds INR 1.1 APTT 30.1 (22.3-36.8) Seconds Sodium 141 (137-145) mmol/L Potassium 3.5 (3.4-5.0) mmol/L Chloride 99 (98-107) mmol/L Carbon Dioxide 28 (22-30) mmol/L Anion Gap 14 H (4-12) mmol/L BUN 15 (7-17) mg/dL Creatinine 0.58 L (0.7-1.0) mg/dL Estim Creat Clear Calc Not Reportable Estimated GFR > 60 (59 - ) Glucose 194 H (65-110) mg/dL Calcium 9.4 (8.4-10.2) mg/dL Total Bilirubin 0.8 (0.2-1.3) mg/dL AST 36 (14-36) U/L ALT 24 (6-35) U/L Alkaline Phosphatase 174 H (38-126) U/L Troponin I < 0.012 (0.000-0.034) ng/mL NT-Pro-B Natriuret Pep 2230 H (19.9-100) pg/mL Total Protein 9.0 H (6.3-8.2) g/dL Albumin 4.7 (3.5-5.1) g/dL Lipase 34 (23-300) U/L Urine Color Dark yellow (Yellow) Urine Appearance Clear (Clear) Urine pH 5.5 (5.0-9.0) Ur Specific Holiday 1.028 (1.001-1.035) Urine Protein 1+ H (Negative) mg/dL Urine Glucose (UA) Negative (Negative) mg/dL Urine Ketones Trace H (Negative) mg/dL Ur Blood (Man) 2+ H (Negative) Urine Nitrate Positive H (Negative) Urine Bilirubin Negative (Negative) Urine Urobilinogen 1.0 (<2.0) mg/dL Add Ur Microanalysis Reviewed Leukocyte Esterase Rfl 1+ H (Negative) RENETTA/UL Urine RBC 3-5 H (0-2) /hpf Urine WBC 0-5 (0-3) /hpf Ur Squamous Epith Cells Few (Few) /hpf Urine Bacteria 4+ H /hpf Urine Casts 0-2 Influenza A (RT-PCR) Negative (Negative) Influenza B (RT-PCR) Negative (Negative) RSV (RT-PCR) Negative (Negative) SARS-CoV-2 RNA (RT-PCR) Negative (Negative) Discharge Plan Discharge Clinical Impression: Acute viral syndrome, Exertional dyspnea, Abnormal urinalysis Patient Disposition: Still a Patient Condition: Stable
[2024-10-16 20:08] LABS: Basophils Percent Auto 0.2 % (0.2-1.2); Hematocrit 44.6 % (37.0-47.0); Hemoglobin 14.6 g/dL (12.0-15.0); Immature Granulocyte Absolute 0.02 K/mm3 (0.00-0.031); Immature Granulocyte Percent A 0.2 % (0-0.5); Lymphocytes Absolute Auto 0.53 K/mm3 (0.9-3.2); Lymphocytes Percent Auto 5.8 % (18.3-44.2); Mean Corpuscular HGB Conc 32.7 g/dl (32-36); Mean Corpuscular Hemoglobin 29.3 pg (26-34); Mean Corpuscular Volume 89.4 fl (80-100); Mean Platelet Volume 9.4 fl (7.4-10.4); Monocytes Absolute Auto 0.4 K/mm3 (0.1-0.6); Monocytes Percent Auto 4.4 % (2.6-8.5); Neutrophils Absolute Auto 8.2 K/mm3 (1.3-6.7); Neutrophils Percent Auto 89.4 % (45.5-73.1); Platelet Count Result 235 k/mm3 (150-375); Red Blood Count 4.99 M/mm3 (4.2-5.4); Red Cell Distribution Width 14.4 % (11.5-14.5); White Blood Count 9.2 K/mm3 (4.5-10.0)
[2024-10-16] MEDS: SODIUM CHLORIDE 0.9% IV 500 ML 999 ML IV CONT (20:08)
[2024-10-16 20:09] VITALS: BP 140/93; PULSE 70; RESP 18; O2SAT 100
[2024-10-16 20:19] LABS: Alanine Aminotransferase 24 U/L (6-35); Albumin Level 4.7 g/dL (3.5-5.1); Alkaline Phosphatase 174 U/L (38-126); Anion Gap 14 mmol/L (4-12); Aspartate Amino Transferase 36 U/L (14-36); Bilirubin,Total 0.8 mg/dL (0.2-1.3); Blood Urea Nitrogen 15 mg/dL (7-17); Calcium 9.4 mg/dL (8.4-10.2); Carbon Dioxide 28 mmol/L (22-30); Chloride 99 mmol/L (98-107); Estimated Glomerular Filt Rate > 60; Glucose 194 mg/dL (65-110); Lipase 34 U/L (23-300); Potassium 3.5 mmol/L (3.4-5.0); Sodium 141 mmol/L (137-145)
[2024-10-16 20:50] LABS: NT Pro B Type Natriuretic Pept 2230 pg/mL (19.9-100)
[2024-10-16 20:53] LABS: Influenza A QL RT-PCR Negative (Negative); Influenza B QL RT-PCR Negative (Negative); RSV RNA, RT-PCR Negative (Negative); SARS-CoV-2 RNA PCR Negative (Negative); Troponin I < 0.012 ng/mL (0.000-0.034)
[2024-10-16 20:58] LABS: INR 1.1; Prothrombin Time 14.8 Seconds (11.1-14.7)
[2024-10-16 20:59] LABS: Partial Thromboplastin Time 30.1 Seconds (22.3-36.8)
[2024-10-16 21:08] VITALS: BP 124/72; PULSE 72; RESP 16; O2SAT 98
[2024-10-16] MEDS: ACETAMINOPHEN 500 MG TABLET 1000 MG PO (22:10)
[2024-10-16] MEDS: diphenhydrAMINE HCl INJ 50 MG/ML VIAL 12.5 MG IV PUSH (22:11)
[2024-10-16] MEDS: PROCHLORPERAZINE EDISYLATE 10 MG/2 ML VIAL IV PUSH (22:13)
[2024-10-16 23:24] VITALS: BP 113/66; PULSE 81; RESP 14; TEMP 37.3; O2SAT 95
[2024-10-16 23:53] LABS: Add Urine Microscopic? YES; Appearance Urine Clear (Clear); Bacteria Urine 4+ /hpf; Bilirubin Urine Negative (Negative); Blood Urine 2+ (Negative); Color Urine Dark Yellow (Yellow); Glucose Urine UA Negative (Negative); Ketones Urine Trace mg/dL (Negative); Leukocyte Esterase Ur 1+ LEU/UL (Negative); Need Manual Microscopic Reviewed; Nitrate Urine Positive (Negative); Non Pathogenic Casts 0-2; Protein Urine 1+ mg/dL (Negative); Specific Grav Ur 1.028 (1.001-1.035); Squamous Epithelial Cell Urine Few /hpf (Few); WBC Urine 0-5 /hpf (0-3); pH Urine 5.5 (5.0-9.0)
[2024-10-17] VITALS (8 sets, daily range): BP systolic 116–143; BP diastolic 59–69; PULSE 68–82; RESP 16–20; TEMP 36.4–37; O2SAT 95–98; BMI 22.8
[2024-10-17] MEDS: FUROSEMIDE INJ 40 MG/4 ML VIAL 20 MG IV PUSH (00:31)
--- NOTE | 2024-10-17 03:07 | ADMGEN ---
This patient, Laura Kendall, was admitted to [facility] Surg Room 315-02. Patient/family oriented to hospital policies and general routines including ID bracelet, bed and alarms, visiting hours, pain management, procedures, bathroom and other care routines, personal items, smoking policy, room service/diet, and visiting hours. Information on how to activate the Rapid Response Team has been discussed. Patient/Family are encouraged to report perceived risks to care and to ask questions if they do not understand what they are told or what they should do.
--- NOTE | 2024-10-17 09:20 | PM.IMHP ---
H&P: HPI History of Present Illness Date/Time: 10/17/24 09:20 Chief Complaint: Nausea, vomiting, and diarrhea Narrative: Patient is an 89-year-old female with a pmh of CAD, s/p stent placement 7 years ago, CHF, Afib on Eliquis, s/p breast cancer, who presented to the ED for n/v/d for approximately 1 day. Patient states that on Tuesday of this week, she started experiencing worsening nausea, diarrhea in the morning that persisted into the next day. She also reports generalized fatigue, a productive cough, and exertional shortness of breath starting 2 days ago. She states she has been able to take her Lasix for the past 2 days due to the nausea and believes that is why she feels out of breath. She denies any chest pain, abdominal pain, edema in the lower extremities, fevers, chills, known sick contacts, or travel. She denies any changes to her diet. She states she recently underwent surgery at [facility] last week for esophageal dilation. She denies any complications during or after the procedure. She also denies any recent antibiotic use. Denies any dysuria or hematuria. At this time, she denies any nausea, vomiting or episodes of diarrhea since her admission. She also states that she has been able to eat and keep food down for the first time since Tuesday (10/15/2024). Initial VS: BP:156/97, HR:83, RR:20, Temp: 36.7, O2:98 ED Workup: WBC: 9.2, RBC: 4.99, Hgb:14.6, Hct:44.6, PT: 14.8s, APTT:30.1s, Na: 141, K:3.5, Cl:99, CO:28, Anion gap: 14, BUN:15, Creatinine:0.58, GFR: >60, Glucose: 194, Alk Phos: 174, BNP: 2230, Total Protein: 9.0. Negative Viral Panel EKG: Electronic Atrial Pacemaker, Electronic Ventricular Pacemaker Urinalysis: Color:Dark Yellow, Clear, Protein:1+, Trace Ketones, 3-5 RBC, 1+Leukocyte esterase, Nitrate positive, 4+ bacteria Chest x-ray: IMPRESSION: Elevation of the right hemidiaphragm with adjacent compressive atelectasis.No focal infiltrate or effusion. Chest CT: Impression: No evidence of pulmonary embolus, aortic dissection, or aortic aneurysm. Clear lungs. 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 Review of Systems Review of Systems: All systems reviewed & are unremarkable except as noted in HPI and below Constitutional: Constitutional: Reports as per HPI and Reports no additional constitutional complaints Eyes: Eyes: Reports as per HPI and Reports no additional eye complaints ENT: Reports system reviewed and no additional complaints, except as documented Cardiovascular: Cardiovascular: Reports as per HPI and Reports no additional cardiovascular complaints Respiratory: Respiratory: Reports as per HPI and Reports no additional respiratory complaints Gastrointestinal: Gastrointestinal: Reports as per HPI and Reports no additional gastrointestinal complaints Musculoskeletal: Musculoskeletal: Reports no additional musculoskeletal complaints Neurologic: Reports system reviewed and no additional complaints, except as documented [facility] Past Medical History Medical History Breast cancer CAD (coronary artery disease) Chronic a-fib Social History Social History Smoking status: Never smoker Alcohol intake: never Substance use: never Do You Feel Safe in your Home?: Yes Lack of Transportation: No Lack of Food: Never True Current Housing: I Do Not Have Housing Concerned About Future Housing: No Difficulty Paying Gas/Electric Bills: No Difficulty Paying for Meds: No Currently Unemployed: No Education: Trade/Vocational Certificate Difficulty w/ Childcare or Family Care: No Living arrangements: alone Spiritual care concerns: No Meds Home Medications and Allergies Home Medications ?Medication ?Instructions ?Recorded ?Confirmed ?Type apixaban 5 mg tablet (Eliquis) 2.5 mg PO BID 09/06/22 10/17/24 History carvedilol 12.5 mg tablet 12.5 mg PO BID 09/06/22 10/17/24 History gabapentin 300 mg tablet 600 mg PO BID 09/06/22 10/17/24 History geriatric multivitamin-min 1 tablet PO DAILY 09/06/22 10/17/24 History lisinopril 5 mg tablet 2.5 mg PO QAM 09/06/22 10/17/24 History lovastatin 40 mg tablet 40 mg PO HS 09/06/22 10/17/24 History sertraline 50 mg tablet 100 mg PO HS 09/06/22 10/17/24 History tramadol 50 mg tablet 50 mg PO Q12-24H PRN Pain 09/06/22 10/17/24 History vit C,B-Sg-juzazg-lutein-zeaxan 60 1 cap PO HS 09/06/22 10/17/24 History mg-13.5 mg-15 mg-2 mg-6 mg capsule (Ocuvite Lutein and Zeaxanthin) aspirin 81 mg tablet,delayed 81 mg PO DAILY 10/17/24 10/17/24 History release (Adult Aspirin Regimen) buspirone 5 mg tablet 5 mg PO BID 10/17/24 10/17/24 History cholecalciferol (vitamin D3) 50 50 mcg PO DAILY 10/17/24 10/17/24 History mcg (2,000 unit) capsule (D3-1999) docusate sodium 100 mg capsule 100 mg PO HS PRN constipation 10/17/24 10/17/24 History (Colace) furosemide 20 mg tablet 20 mg PO BID 10/17/24 10/17/24 History levothyroxine 50 mcg tablet 50 mcg PO DAILY 10/17/24 10/17/24 History loratadine 10 mg tablet 10 mg PO DAILY 10/17/24 10/17/24 History omeprazole 20 mg capsule,delayed 20 mg PO DAILY PRN heartburn 10/17/24 10/17/24 History release pantoprazole 40 mg tablet,delayed 40 mg PO DAILY 10/17/24 10/17/24 History release potassium chloride 10 mEq 10 meq PO DAILY 10/17/24 10/17/24 History tablet,extended release Allergies Allergy/AdvReac Type Severity Reaction Status Date / Time No Known Allergies Allergy Verified 10/16/24 19:20 Vital Signs Vital Signs - 24 hr 10/16/24 19:16 10/16/24 20:09 10/16/24 21:08 Temperature 98.0 F Pulse Rate 83 70 72 Respiratory Rate 20 18 16 Blood Pressure 156/97 H 140/93 H 124/72 Pulse Oximetry 98 100 98 Oxygen Delivery Room Air Oxygen Flow Rate 10/16/24 23:24 10/17/24 00:01 10/17/24 01:05 Temperature 99.1 F 98.6 F Pulse Rate 81 82 Respiratory Rate 14 16 Blood Pressure 113/66 143/69 H Pulse Oximetry 95 96 98 Oxygen Delivery Nasal Cannula Oxygen Flow Rate 2 10/17/24 02:47 10/17/24 03:05 10/17/24 05:40 Temperature 98.4 F 97.5 F L Pulse Rate 68 73 Respiratory Rate 20 16 Blood Pressure 121/59 L 116/66 Pulse Oximetry 96 96 98 Oxygen Delivery Nasal Cannula Oxygen Flow Rate 2 Exam Const: General: comfortable and no acute distress HENMT: Mouth: Yes moist mucous membranes Eyes: General: appearance normal, both eyes and all related structures Pupils: Equal, round and reactive pupils present EOM: EOMs intact bilaterally Neck: Neck: supple and no JVD Resp: Effort & Inspection: normal respiratory effort Auscultation: clear to auscultation bilaterally Cardio: Rate: regular rate Rhythm: regular rhythm GI: Inspection: normal to inspection GI Palp: Yes Soft to palpation Other: Soft, nontender, nondistended, normal active bowel sounds. No rebound, guarding or rigidity. No CVA tenderness Skin: General skin exam: normal color and no rashes or lesions noted Neuro: Speech: normal speech Motor exam (neuro): 5/5 motor strength present throughout and Normal motor muscle tone present throughout Extrem: General: normal to inspection Psych: Mental Status: mental status grossly normal H&P: Results Labs Labs: Short CBC 10/16/24 Range/Units 20:03 WBC 9.2 (4.5-10.0) K/mm3 Hgb 14.6 (12.0-15.0) g/dL Hct 44.6 (37.0-47.0) % Plt Count 235 (150-375) k/mm3 BMP 10/16/24 20:03 Sodium 141 Potassium 3.5 Chloride 99 Carbon Dioxide 28 BUN 15 Creatinine 0.58 L Glucose 194 H Calcium 9.4 Cardiac Enzymes 10/16/24 Range/Units 20:03 Troponin I < 0.012 (0.000-0.034) ng/mL Liver Function 10/16/24 Range/Units 20:03 Total Bilirubin 0.8 (0.2-1.3) mg/dL AST 36 (14-36) U/L ALT 24 (6-35) U/L Alkaline Phosphatase 174 H (38-126) U/L Albumin 4.7 (3.5-5.1) g/dL Urine 10/16/24 Range/Units 21:39 Urine Color Dark yellow (Yellow) Urine Appearance Clear (Clear) Urine pH 5.5 (5.0-9.0) Ur Specific [place] 1.028 (1.001-1.035) Urine Protein 1+ H (Negative) mg/dL Urine Glucose (UA) Negative (Negative) mg/dL Assessment and Plan Assessment and plan (1) Nausea and vomiting: Code(s): R11.2 - Nausea with vomiting, unspecified Status: Acute (2) Exertional dyspnea: Code(s): R06.09 - Other forms of dyspnea Status: Acute (3) Abnormal urinalysis: Code(s): R82.90 - Unspecified abnormal findings in urine Status: Acute Plan Acute and Critical Conditions 1. Nausea and Vomiting -Symptoms started Tuesday -Denies any current symptoms, has been able to eat -Will continue to hydrate -PRN antiemetics 2.Exertional Dyspnea -Likely secondary to missed Lasix dosages -Lasix has been resumed, continue -no LE edema, dyspnea, or positive lung findings -Wean off O2, ambulate 3.Abnormal Urinalysis -positive nitrates, 1+ leuk esterase, 3-5 RBCs, 4+ bacteria -Denies any urinary sxs -culture still pending, will monitor until resulted.
[2024-10-17] MEDS: ONDANSETRON INJ 4 MG/2 ML VIAL IV PUSH (12:45)
--- NOTE | 2024-10-17 13:28 | P.DS_ITS ---
DS: Admitting Diagnosis Discharge Date 10/17/2024 Admitting Diagnosis Nausea and Vomiting DS: Discharge Diagnosis Discharge Diagnosis (1) Nausea and vomiting: Code(s): R11.2 - Nausea with vomiting, unspecified Status: Acute (2) Exertional dyspnea: Code(s): R06.09 - Other forms of dyspnea Status: Acute (3) Abnormal urinalysis: Code(s): R82.90 - Unspecified abnormal findings in urine Status: Acute DS: Summary Hospital Course Reason for hospitalization: Nausea and vomiting, exertional dyspnea Hospital Course: Patient is an 89-year-old female with a pmh of CAD, s/p stent placement 7 years ago, CHF, Afib on Eliquis, s/p breast cancer, who presented to the ED for n/v/d for approximately 1 day. Patient states that on Tuesday of this week, she started experiencing worsening nausea, diarrhea in the morning that persisted into the next day. She also reports generalized fatigue, a productive cough, and exertional shortness of breath starting 2 days ago. She states she has been able to take her Lasix for the past 2 days due to the nausea and believes that is why she feels out of breath. She denies any chest pain, abdominal pain, edema in the lower extremities, fevers, chills, known sick contacts, or travel. She denies any changes to her diet. She states she recently underwent surgery at [facility] last week for esophageal dilation. She denies any complications during or after the procedure. She also denies any recent antibiotic use. Denies any dysuria or hematuria. At this time, she denies any nausea, vomiting or episodes of diarrhea since her admission. She also states that she has been able to eat and keep food down for the first time since Tuesday (10/15/2024). Patient received 2 doses of ondansetron and a bolus of NS in the ER. After arrival to the floor, patient started endorsing significant improvement of symptoms. Lasix was also restarted. Upon exam, patient was found to have clear lung sounds, with a room air O2 saturation of 96%. She also states that she has been able to eat and drink without any nausea/vomiting and has reported no episodes of diarrhea today. Discussed with patient to f/u with primary care physician regarding breakthrough symptoms of n/v/d. Pt amenable to discharge and appropriate PCP f/u. Will send home with PRN ondansetron. Status at Discharge Overall status at discharge: patient is back to baseline Time Spent with Patient Time attestation: Total time spent providing and/or coordinating discharge services:- Exam Const: General: comfortable and no acute distress HENMT: Mouth: Yes moist mucous membranes Eyes: General: appearance normal, both eyes and all related structures Pupils: Equal, round and reactive pupils present EOM: EOMs intact bilaterally Neck: Neck: supple and no JVD Resp: Effort & Inspection: normal respiratory effort Auscultation: clear to auscultation bilaterally Cardio: Rate: regular rate Rhythm: regular rhythm GI: Inspection: normal to inspection Other: Soft, nontender, nondistended, normal active bowel sounds. No rebound, guarding or rigidity. No CVA tenderness Skin: General skin exam: normal color and no rashes or lesions noted Neuro: Cranial nerves: Yes Equal, round and reactive pupils present Speech: normal speech Motor exam (neuro): 5/5 motor strength present throughout and Normal motor muscle tone present throughout Extrem: General: normal to inspection and edema Psych: Mental Status: mental status grossly normal DS: Data Data Completed and Pending Labs on day of discharge: Labs from last 24 hours 10/16/24 10/16/24 21:39 20:03 WBC 9.2 RBC 4.99 Hgb 14.6 Hct 44.6 MCV 89.4 MCH 29.3 MCHC 32.7 RDW 14.4 Plt Count 235 MPV 9.4 Immature Gran % (Auto) 0.2 Neut % (Auto) 89.4 H Lymph % (Auto) 5.8 L [place] % (Auto) 4.4 Eos % (Auto) 0.0 Baso % (Auto) 0.2 Lymph # (Auto) 0.53 L [place] # (Auto) 0.4 Eos # (Auto) 0.0 Baso # (Auto) 0.0 Abs Immat Gran (auto) 0.02 Absolute Neuts (auto) 8.2 H Absolute Nucleated RBC 0.000 Nucleated RBC % 0.0 PT 14.8 H INR 1.1 APTT 30.1 Sodium 141 Potassium 3.5 Chloride 99 Carbon Dioxide 28 Anion Gap 14 H BUN 15 Creatinine 0.58 L Estim Creat Clear Calc Not Reportable Estimated GFR > 60 Glucose 194 H Calcium 9.4 Total Bilirubin 0.8 AST 36 ALT 24 Alkaline Phosphatase 174 H Troponin I < 0.012 NT-Pro-B Natriuret Pep 2230 H Total Protein 9.0 H Albumin 4.7 Lipase 34 Urine Color Dark yellow Urine Appearance Clear Urine pH 5.5 Ur Specific [place] 1.028 Urine Protein 1+ H Urine Glucose (UA) Negative Urine Ketones Trace H Ur Blood (Man) 2+ H Urine Nitrate Positive H Urine Bilirubin Negative Urine Urobilinogen 1.0 Add Ur Microanalysis Reviewed Leukocyte Esterase Rfl 1+ H Urine RBC 3-5 H Urine WBC 0-5 Ur Squamous Epith Cells Few Urine Bacteria 4+ H Urine Casts 0-2 Influenza A (RT-PCR) Negative Influenza B (RT-PCR) Negative RSV (RT-PCR) Negative SARS-CoV-2 RNA (RT-PCR) Negative Discharge Plan Discharge Attending physician on discharge: Nitin Alford Discharging Clinician: Nitin Alford Anticipated Discharge Date/Time: 10/17/24 14:19 Patient Disposition: NH Residential/Asst Living Activity: as tolerated Diet: heart healthy Discharge Instructions: Take medications as prescribed Monitor blood pressures Take caution while standing, rising, or moving Change positions slowly taking a break between each position change If you standing feel dizzy sit back down and take a break Encouraged to continue with yearly vaccinations Return to the emergency department if he developed sudden shortness of breath, chest pain, nausea, vomiting, upset stomach or intractable diarrhea Return to the emergency department if you develop fever greater than 101.5 Follow-up with the primary care physician within 1 week Thank you for [facility] for your healthcare needs Patient Instructions: Antibiotic Form, Blood Thinners (GEN) Patient Language: Serbian Stand Alone Forms: General Discharge Information, Half-Way Discharge Follow-up/Referrals: Donna,Gabrielle Edmonds, [Primary Care Provider] - Discharge Medications: New ondansetron 4 mg tablet,disintegrating 4 mg PO Q8H PRN (Reason: nausea and vomiting) Qty: 7 0RF No Action carvedilol 12.5 mg tablet 12.5 mg PO BID lovastatin 40 mg tablet 40 mg PO HS tramadol 50 mg tablet 50 mg PO Q12-24H PRN (Reason: Pain) lisinopril 5 mg tablet 2.5 mg PO QAM sertraline 50 mg tablet 100 mg PO HS Ocuvite Lutein and Zeaxanthin 60 mg-13.5 mg- 15 mg-2 mg-6 mg capsule 1 cap PO HS Eliquis 5 mg Tablet 2.5 mg PO BID geriatric multivitamin-min Tablet 1 tablet PO DAILY gabapentin 300 mg Tablet 600 mg PO BID buspirone 5 mg tablet 5 mg PO BID aspirin [Adult Aspirin Regimen] 81 mg tablet,delayed release (DR/EC) 81 mg PO DAILY docusate sodium [Colace] 100 mg capsule 100 mg PO HS PRN (Reason: constipation) furosemide 20 mg tablet 20 mg PO BID levothyroxine 50 mcg tablet 50 mcg PO DAILY loratadine 10 mg tablet 10 mg PO DAILY omeprazole 20 mg capsule,delayed release(DR/EC) 20 mg PO DAILY PRN (Reason: heartburn) pantoprazole 40 mg tablet,delayed release (DR/EC) 40 mg PO DAILY potassium chloride 10 mEq tablet extended release 10 meq PO DAILY cholecalciferol (vitamin D3) [D3-2000] 50 mcg (2,000 unit) capsule 50 mcg PO DAILY Date of admission: 10/17/24 00:53 Primary Care Provider: Donna,Gabrielle Edmonds Admitting Provider: Debbie Frank Attending physician on admission: Nitin Alford Condition: Stable
--- NOTE | 2024-10-17 16:51 | PC.NURSE ---
called provider at approx 1600 to inform him that i cannot print discharge because home meds had no action. The provider stated that he had already left but he thought that he restarted all of her home meds to resume. provider and rn went over home meds one by one with dosing and frequency via telephone review. rn sent meds through with provider's order.
== END 2024-10-17 16:30 | disposition home or self-care (01) ==
LOC: ANHED 10-17 00:52 → ANH3MEDSUR 10-17 01:58
PROVIDERS: Admitting Provider Internal Medicine; Emergency Provider Physician Assistant; PCP Internal Medicine; Visit Provider Physician Assistant
DX: R11.2 Nausea with vomiting, unspecified (principal); R06.09 Other forms of dyspnea; R82.90 Unspecified abnormal findings in urine; I25.10 Atherosclerotic heart disease of native coronary artery without angina pectoris; I50.9 Heart failure, unspecified; I48.91 Unspecified atrial fibrillation; Z20.822 Contact with and (suspected) exposure to COVID-19; Z85.3 Personal history of malignant neoplasm of breast; Z79.01 Long term (current) use of anticoagulants; Z79.82 Long term (current) use of aspirin; Z79.899 Other long term (current) drug therapy; Z95.5 Presence of coronary angioplasty implant and graft
CPT/HCPCS: 36415; 71045; 71260; 80053; 81001; 83690; 83880; 84484; 85025; 85610; 85730; 87077; 87086; 87186; 87637; 93005; 96361; 96374; 96375; 96376; 99285; A9270; G0378; J0780; J1200; J1940; J2405; J7030; J7040; Q9967